=== PATIENT | male | born 1990 | race Caucasian/White ===

== ENCOUNTER 2019-08-17 23:32 | Emergency (ER) | payer SELFPAY ==
[2019-08-17 23:33] VITALS: BP 127/94; PULSE 106; RESP 20; TEMP 36.5; O2SAT 97; BMI 21.8
--- NOTE | 2019-08-18 | RAD_ITS ---
STUDY: X-RAY CHEST REASON FOR EXAM: Male, 29 years old patient with dyspnea and bilateral flank pain just starting today. TECHNIQUE: PA and lateral views of the chest. COMPARISON: Prior comparison studies are not available for review at this time. FINDINGS: The lungs are clear and expanded. There is no demonstrated pleural abnormality. Normal size heart. Normal mediastinum and zak. Normal visualized pulmonary arteries. Normal visualized aortic arch and descending thoracic aorta. There is an increased kyphosis of the thoracic spine. Normal visualized ribs, clavicles, and shoulders. There is no demonstrated abnormality of the visualized soft tissue structures of the upper abdomen. RAD/Chest PA and Lateral IMPRESSION: No radiographic evidence of acute cardiopulmonary disease. Electronically Signed: Olivia Hinojosa MD at 1:06 EDT , Service support ,
[2019-08-18] MEDS: Ketorolac 30 MG/ML Syringe IV (00:04)
[2019-08-18 00:14] LABS: Bacteria 0 SEEN /hpf (None Seen); Mucous, Urine 0 SEEN /hpf (<or=2+); Red Blood Cells-Urine 0 SEEN /hpf (0-5); Squamous Epithelial Cells - UA 0 SEEN /hpf (0-5); White Blood Cells 0 SEEN /hpf (0-5)
[2019-08-18 00:16] LABS: Absolute Lymphocyte Count 2.08 X10^3/uL (0.83-4.51); Absolute Neutrophil Count 5.3 X10^3/uL (2.0-7.7); Basophil# 0.05 X10^3/uL; Basophil% 0.6 % (0-1); Eosinophil# 0.05 X10^3/uL; Eosinophils% 0.6 % (0-5); Hematocrit 39.7 % (40-54); Hemoglobin 13.9 g/dL (13.0-16.5); Lymphocyte # 2.08 X10^3/ul (4.0); Lymphocyte % 25.4 % (19-41); Mean Corpuscular Hgb 31.7 pg (27.0-32.0); Mean Corpuscular Volume 90.6 fL (80-94); Mean Platelet Vol. 9.2 fl (6.2-12.0); Monocyte% 8.6 % (0-10); NRBC Flagged by Analyzer 0 % (0-5); Neutrophil # 5.26 X10^3/uL (2.7-7.7); Neutrophil % 64.3 % (47-70); Platelet Count 215 K/mm3 (150-450); RBC Distribution Width CV 11.8 % (11.6-14.6); RBC Distribution Width SD 39.2 fl (35.1-43.9); Red Blood Count 4.38 M/mm3 (4.6-6.2); White Blood Count 8.2 K/mm3 (4.4-11.0)
[2019-08-18 00:17] LABS: Color, Urine Straw (Yellow); Glucose, Dipstick 1000 mg/dl (Normal); Ketone-Dipstick 50 mg/dl (Negative); Leukocyte Esterase-Dipstick Negative /ul (Negative); Nitrite-Dipstick Negative (Negative); Occult Blood-Urine Negative /ul (Negative); Protein-Dipstick Negative (Negative); Urine Bilirubin Dipstick Negative (Negative); Urine Clarity Clear (Clear); Urine Urobilinogen Normal (Normal); Urine pH 6.5 (5.0 - 8.0)
[2019-08-18 00:42] LABS: Anion Gap 8 (5-15); BUN 13 mg/dL (7-18); BUN/Creat Ratio 18.6 RATIO (10-20); Calcium,Total 8.6 mg/dL (8.5-10.1); Chloride 94 mmol/L (98-107); EST Glomerular Filtration Rate 143 mL/min (>60); Est Glom Filt Rate - Afr Amer 173 mL/min (>60); Estimated Creatinine Clearance 128.22 ml/min; Glucose 638 mg/dL (74-106); Potassium 4.2 mmol/L (3.5-5.1); Sodium Level 128 mmol/L (136-145)
--- NOTE | 2019-08-18 00:52 | ED.DCSUM_ITS ---
- ER Visit Summary Date of Service: 08/18/19 Chief Complaint: Bilateral flank/rib pain History of Present Illness: The patient is a 29 M who has bilateral flank and rib pain. It started about 1/2-hour prior to presentation. He states the pain is sharp. It does not radiate. He denies a recent cough. No dysuria. He has had some diarrhea. He took nothing for this pain at home. Denies any trauma. He is a type I diabetic and states that his blood sugars have been slightly high recently due to a recent cold. Physical Examination: Vital signs reviewed. HEENT exam unremarkable. Heart is regular rate and rhythm without murmurs. Lungs are clear to auscultation. His chest is tender in the bilateral chest wall area in the mid axillary lines. Abdomen is soft and nontender. His back is nontender. No CVA tenderness. Extremities reveal no edema. Skin exam normal. Neurologic exam normal. Test Results: CBC normal. Blood sugar 638, sodium 128, chloride 94. Urinalysis has slight ketones with glucose. No signs of infection. Chest x-ray per my int erpretation is unremarkable Emergency Department Course and Treatment: The patient's work-up is negative except for hyperglycemia. He is feeling better after Toradol. He admits that he had some cake today at a birthday alliance party which may have raised his blood sugar. He has also been sick with a cold recently. This cold could also contribute to the chest wall pain he was having. I instructed him to use ibuprofen for pain at home. I will give him 25 units of insulin here. He states he does have insulin at home that he can take. I am going to give him PCP follow-up. No signs of ketosis and his anion gap is normal. Treatment Plan: [] Disposition: Discharge Impression: Bilateral rib pain, hyperglycemia This note was generated with [employer] dictation software. It may contain incorrect words, spelling, and punctuation that were not noted in review of the chart prior to signing ED Disposition - Plan for ED Patient: Disposition: Home or Assisted Living Instructions: ED Diabetic Hyperglycemia Referrals: Care Physician,No Primary [Primary Care Provider] - Lucio Gomez III, MD [STAFF PHYSICIAN] -
[2019-08-18] MEDS: Insulin Human 75/25 Kwickpen 25 UNIT SC (01:04)
[2019-08-18 01:09] VITALS: BP 116/78; PULSE 100; RESP 16; O2SAT 100
== END 2019-08-18 01:09 | disposition home or self-care (01) ==
PROVIDERS: Emergency Provider Emergency Medicine
DX: R07.81 Pleurodynia (principal); E10.65 Type 1 diabetes mellitus with hyperglycemia; Z79.4 Long term (current) use of insulin; Z72.0 Tobacco use
CPT/HCPCS: 71046; 80048; 81001; 85025; 96374; 99285; A4216

== ENCOUNTER 2019-08-24 06:00 | Emergency (ER) | payer SELFPAY ==
[2019-08-24 06:01] VITALS: BP 129/86; PULSE 111; RESP 18; TEMP 36.7; O2SAT 98; BMI 20.1
[2019-08-24 06:04] VITALS: BP 129/86; PULSE 111; RESP 18; TEMP 36.7; O2SAT 98
--- NOTE | 2019-08-24 06:18 | CT_ITS ---
HISTORY: DIARRHEA- BRIGHT RED BLOOD EXAMINATION: CT Abdomen And Pelvis W/O Contrast Injection TECHNIQUE: Helically acquired images were obtained of the abdomen and pelvis following IV contrast. A radiation dose optimization technique was used for this scan. IV Contrast dosage and agent: None Oral contrast: None. COMPARISON: None FINDINGS: Lower thorax: Clear. No pleural effusion or pericardial effusion. Gastric food contents. Contracted gallbladder. No radiopaque gallstones and no biliary dilatation. Limited non-infusion exam. Mild diffuse hepatic enlargement. The spleen is upper normal in size. Pancreas: Thin body habitus and the pancreas is not well seen. Allowing for this, mild diffuse pancreatic enlargement and mild peripancreatic edema is suggested representing low-grade pancreatitis. No pancreatic ductal dilatation is seen. Both kidneys are normal in position. 2 mm calyceal stone, lower pole of the left kidney. No hydronephrosis or hydroureter. The adrenal glands are not enlarged. Abdominal aorta is normal in caliber. No ascites or retroperitoneal lymph node enlargement identified. GI tract: No obstruction. Normal appendix. No colitis or focal bowel lesion identified in this patient with history of bright red blood per rectum. Moderate stool within the rectum and lower sigmoid. Pelvis: Normal urinary bladder. No bladder stones. No free fluid or lymph node enlargement. Bones: No acute osseous abnormality. CT/Abdomen/Pelvis without Cont IMPRESSION: 1. Generalized mild hepatomegaly. No ascites or splenomegaly. 2. Low-grade pancreatitis is suggested. Recommend biochemical (laboratory) correlation. 3. Left renal tiny nonobstructing stone. 4. Moderate stool within the rectum and lower sigmoid. No colitis or focal bowel lesion identified. Individualized dose optimization techniques were used for this CT. at 0805 Reported and signed by: Amador Henley MD Electronically Signed: Amador Henley, at 8:04 EDT Tel , Service support ,
--- NOTE | 2019-08-24 06:19 | ED.VIS.GEN ---
History of Present Illness Chief Complaint: Diarrhea Informant: Patient Narrative: Stated he has had chronic diarrhea for the last month. Up to 5 episodes of loose watery diarrhea per day. Over the last couple weeks he is noticed some blood in his stools. He states after he eats he usually has to have diarrhea. He has not seen a doctor for this. He is never had problems like this in the past. History of type 1 diabetes. Was seen last week with normal hemoglobin. He has been using herbal supplements to try to remedy this. Current severity is mild to moderate. Denies any significant abdominal pain but feels cramping. No recent antibiotics. No history of C. difficile colitis. Past Medical History - Allergies and Home Meds Allergies/Adverse Reactions: Allergies aspirin Allergy (Verified 08/18/19 00:03) Anaphylaxis cyclobenzaprine [From Flexeril] Allergy (Verified 08/18/19 00:03) Anaphylaxis morphine Allergy (Verified 08/18/19 00:03) Anaphylaxis naproxen Allergy (Verified 08/18/19 00:03) Anaphylaxis Penicillins [PCN] Allergy (Verified 08/18/19 00:03) Anaphylaxis Primary Care Physician: Riccardo De Leon DO [NON CLINICAL AFFILIATE] - Prior records reviewed: Yes Past Medical History: - - Diabetes type 1 Surgical History: - - Viewed Smoking Status: Current every day smoker Alcohol: None Drugs: None Review of Systems General: Denies: Chills, Fever, Sweats Eyes: Denies: Visual changes - bilaterally, Diplopia ENT: Denies: Rhinorrhea, Sore throat Cardiovascular: Denies: Chest pain, Palpitations Respiratory: Denies: Dyspnea, Cough, Dyspnea on exertion Gastrointestinal: Reports: Abdominal pain, Diarrhea, Hematochezia. Denies: Nausea, Vomiting, Melena Genitourinary: Denies: Dysuria, Hematuria, Frequency Musculoskeletal: Denies: Back pain, Extremity Pain Skin: Denies: Rash, Wounds Neurological: Denies: Headache, Weakness, Numbness Physical Exam Vital Signs/Narrative: Vital Signs Temp Pulse Resp BP Pulse Ox 08/24/19 06:04 98.0 F 111 H 18 129/86 H 98 08/24/19 06:01 98.0 F 111 H 18 129/86 H 98 General: Well nourished, Well developed, No Acute Distress Head: Normocephalic, Atraumatic Eyes: Perrl, EOMI ENT: Moist mucous membranes, No rhinorrhea Neck: Supple, Nontender Cardiovascular: Regular rate, Regular rhythm, No murmurs Respiratory: No distress, CTA bilaterally, Chest nontender Abdomen: Soft, Nontender, Nondistended, Normal bowel sounds Back: Nontender, Normal Inspection Extremities: Nontender, No edema Skin: Normal color, No rash Neurological: Alert, Oriented x3, Cranial nerves II-XII grossly intact, Normal Strength, Normal Sensation Psychological: Normal affect, Normal Mood Diagnostic/Tx/Re-eval - Medical Decision Making IV established given IV fluids and Bentyl. Lab work and CT abdomen pelvis obtained. Lab work shows a elevation in glucose greater than 400. No leukocytosis. Hemoglobin normal. CT will be signed out to the a.m. physician for evaluation. If negative patient be discharged to use Imodium at home and follow-up with her family doctor ED Disposition - Plan for ED Patient: Disposition: Psychiatric Hospital or Unit Diagnosis: Chronic diarrhea Instructions: Treating Diarrhea Prescriptions: Ondansetron [Zofran Odt] 4 mg PO Q8H PRN PRN #10 tab PRN Reason: Nausea Prescription Printed Referrals: Riccardo De Leon DO [NON CLINICAL AFFILIATE] -
[2019-08-24] MEDS: 0.9% Normal Saline 1,000 ML 1000 ML IV (06:31)
[2019-08-24] MEDS: Dicyclomine 20 MG/2 ML Vial IM (06:31)
[2019-08-24 06:39] LABS: Absolute Lymphocyte Count 2.13 X10^3/uL (0.83-4.51); Absolute Neutrophil Count 4.7 X10^3/uL (2.0-7.7); Basophil# 0.04 X10^3/uL; Basophil% 0.5 % (0-1); Eosinophil# 0.18 X10^3/uL; Eosinophils% 2.3 % (0-5); Hematocrit 42.7 % (40-54); Hemoglobin 14.7 g/dL (13.0-16.5); Lymphocyte # 2.13 X10^3/ul (4.0); Lymphocyte % 26.9 % (19-41); Mean Corp Hgb Conc 34.4 g/dL (32-36); Mean Corpuscular Hgb 31.8 pg (27.0-32.0); Mean Corpuscular Volume 92.4 fL (80-94); Mean Platelet Vol. 8.9 fl (6.2-12.0); Monocyte# 0.81 X10^3/uL; Monocyte% 10.2 % (0-10); NRBC Flagged by Analyzer 0 % (0-5); Neutrophil # 4.71 X10^3/uL (2.7-7.7); Neutrophil % 59.6 % (47-70); Platelet Count 204 K/mm3 (150-450); RBC Distribution Width SD 40.6 fl (35.1-43.9); Red Blood Count 4.62 M/mm3 (4.6-6.2); White Blood Count 7.9 K/mm3 (4.4-11.0)
[2019-08-24 07:04] LABS: AST(SGOT) 23 U/L (15-37); Alanine Aminotransfer ALT/SGPT 51 U/L (16-61); Albumin, Serum 3.4 g/dL (3.2-5.0); Alkaline Phosphatase 107 U/L (45-117); Anion Gap 12 (5-15); BUN 14 mg/dL (7-18); BUN/Creat Ratio 23.6 RATIO (10-20); Calcium,Total 8.1 mg/dL (8.5-10.1); Chloride 99 mmol/L (98-107); Creatinine, Serum 0.59 mg/dL (0.70-1.30); EST Glomerular Filtration Rate 172 mL/min (>60); Est Glom Filt Rate - Afr Amer 208 mL/min (>60); Estimated Creatinine Clearance 140.53 ml/min; Globulin 3.4 g/dL (2.2-4.2); Glucose 464 mg/dL (74-106); Potassium 3.9 mmol/L (3.5-5.1); Protein, Total 6.8 g/dL (6.4-8.2); Sodium Level 132 mmol/L (136-145)
[2019-08-24 07:34] VITALS: BP 123/82; PULSE 98; RESP 16; TEMP 37.1; O2SAT 98
[2019-08-24 08:56] VITALS: BP 121/87; PULSE 99; RESP 12; TEMP 36.8; O2SAT 98
[2019-08-24 09:02] LABS: Lipase 176 U/L (73-393)
[2019-08-24 09:30] VITALS: BP 121/87; PULSE 99; RESP 12; TEMP 37.2; O2SAT 98
== END 2019-08-24 09:32 | disposition home or self-care (01) ==
PROVIDERS: Emergency Medicine; Emergency Provider Emergency Medicine
DX: K52.9 Noninfective gastroenteritis and colitis, unspecified (principal); E10.9 Type 1 diabetes mellitus without complications; F17.200 Nicotine dependence, unspecified, uncomplicated; Z79.4 Long term (current) use of insulin
CPT/HCPCS: 74176; 80053; 83630; 83690; 85025; 87177; 87209; 87506; 96360; 96361; 96372; 99283; J7030; A4216

== ENCOUNTER 2019-09-26 20:19 | Emergency (ER) | payer SELFPAY ==
[2019-09-26 20:21] VITALS: BP 131/83; PULSE 121; RESP 18; TEMP 36.4; O2SAT 97; BMI 18.3
[2019-09-26 20:36] LABS: Bedside Glucose 492 mg/dL (70-110)
--- NOTE | 2019-09-26 20:42 | ED.DCSUM_ITS ---
History of Present Illness Chief Complaint: Hyperglycemia Informant: Patient Onset: Weeks - 1 Context: - - since ran out of short- and long-acting insulins Timing: Intermittent Quality: occasionally in 400s Current Severity: Moderate Maximum Severity: Moderate Worsened by: n/a Relieved by: n/a Associated Symptoms: bilat flank pain Narrative: Patient is a type I diabetic who recently moved here from [place], [place], which is where his PCP and gis consultant are. He states he recently had parental in the family and so he moved here to be with other family members, and now has a job at a [employer] where he makes [employer]. He lives locally and does not have a local doctor. He called his doctors in [place] for refills of his medications and for the past week has been unsuccessful with multiple phone calls. He states as a result he has been trying to manage his blood sugar by avoiding sweets and carbohydrates. He states he has been feeling dehydrated and trying to drink fluids, choosing diet once preferentially. He does not necessarily feel like he is in DKA but for the last 3 days has had bilateral flank pain and wonders if it is due to dehydration. It is aching mostly, however after drinking a bunch of diet soda he felt it was sharp in nature today and decided to come for evaluation. He denies any thoracic symptoms or dyspnea, rashes, injuries, recent illnesses. He has had no other recent travel out of the area. No known exposures with coronavirus-infected persons. - Past Medical History (1) Type 1 diabetes mellitus Status: Chronic Past Medical History - Allergies and Home Meds Allergies/Adverse Reactions: Allergies aspirin Allergy (Verified 09/26/19 20:20) Anaphylaxis cyclobenzaprine [From Flexeril] Allergy (Verified 09/26/19 20:20) Anaphylaxis morphine Allergy (Verified 09/26/19 20:20) Anaphylaxis naproxen Allergy (Verified 09/26/19 20:20) Anaphylaxis Penicillins [PCN] Allergy (Verified 09/26/19 20:20) Anaphylaxis Primary Care Physician: Care Physician,No Primary [NON-STAFF] - Doctors: None locally Surgical History: - - Bilateral lower extremity orthopedic, remote Lives: With Family Smoking Status: Current every day smoker Review of Systems General: Reports: Malaise. Denies: Chills, Fever, Sweats Eyes: Denies: Visual changes - bilaterally, Diplopia ENT: Denies: Bilateral ear pain, Rhinorrhea, Sore throat Cardiovascular: Denies: Chest pain, Palpitations Respiratory: Denies: Dyspnea, Cough, Dyspnea on exertion Gastrointestinal: Reports: Abdominal pain - Bilateral lateral flank, Nausea - Off-and-on, currently not present. Denies: Vomiting, Diarrhea, Melena, Hematochezia Genitourinary: Denies: Dysuria, Hematuria, Frequency Musculoskeletal: Denies: Neck pain, Back pain, Swelling, Extremity Pain Skin: Denies: Rash, Wounds Neurological: Denies: Headache, Weakness, Numbness Physical Exam Vital Signs/Narrative: Vital Signs Temp Pulse Resp BP Pulse Ox 09/26/19 20:21 97.6 F L 121 H 18 131/83 H 97 Inital Vital Signs reviewed: Yes General: Well nourished, Well developed, No Acute Distress - Well-appearing, - - Very thin body habitus. Head: Normocephalic, Atraumatic Eyes: Perrl, EOMI ENT: Moist mucous membranes, No rhinorrhea, - - Posterior oropharynx clear. Very poor dentition with significant decay.. Negative for: Nasal congestion Neck: Supple, Nontender, No lymphadenopathy Cardiovascular: Regular rate, Regular rhythm, No murmurs, Tachycardia Respiratory: No distress, CTA bilaterally, Chest nontender Abdomen: Soft, Nondistended, Normal bowel sounds, No masses, Tender - Lateral flanks mildly, bilaterally. Otherwise nontender throughout anterior abdomen/pelvis.. Negative for: Guarding, Rebound tenderness Back: Nontender, Normal Inspection. Negative for: CVA tenderness Extremities: Nontender, No edema. Negative for: Calf Tenderness Skin: Normal color, No rash, No Trauma Neurological: Alert, Oriented x3, Cranial nerves II-XII grossly intact, Normal Strength, Normal Sensation, Normal Gait Psychological: Normal affect, Normal Mood Diagnostic/Tx/Re-eval Laboratory Results 09/26/19 09/26/19 09/26/19 20:31 20:40 20:40 WBC 9.4 RBC 4.97 Hgb 15.5 Hct 44.3 MCV 89.1 MCH 31.2 MCHC 35.0 RDW Std Deviation 38.6 RDW Coeff of Haris 11.9 Plt Count 261 MPV 8.9 Immature Gran % (Auto) 0.400 Neut % (Auto) 65.7 Lymph % (Auto) 24.8 Morton % (Auto) 7.5 Eos % (Auto) 1.0 Baso % (Auto) 0.6 Absolute Neuts (auto) 6.2 Absolute Lymphs (auto) 2.33 Nucleated RBC % 0 Sodium 130 L Potassium 3.9 Chloride 97 L Carbon Dioxide 23.0 Anion Gap 10 BUN 10 Creatinine 0.62 L Estim Creat Clear Calc 133.23 Est GFR (MDRD) Af Amer 197 Est GFR (MDRD) Non-Af 163 BUN/Creatinine Ratio 16.0 Glucose 533 H* Calcium 9.7 Total Bilirubin 0.80 AST 13 L ALT 35 Alkaline Phosphatase 73 Total Protein 7.1 Albumin 3.5 Globulin 3.6 Albumin/Globulin Ratio 1.0 Urine Color Urine Clarity Urine pH Ur Specific [place] Urine Protein Urine Glucose (UA) Urine Ketones Urine Occult Blood Urine Nitrite Urine Bilirubin Urine Urobilinogen Ur Leukocyte Esterase Urine RBC Urine WBC Ur Squamous Epith Cells Urine Bacteria Urine Mucus Acetone Level POC Glucose 492 H* 09/26/19 09/26/19 20:40 20:45 WBC RBC Hgb Hct MCV MCH MCHC RDW Std Deviation RDW Coeff of Haris Plt Count MPV Immature Gran % (Auto) Neut % (Auto) Lymph % (Auto) Morton % (Auto) Eos % (Auto) Baso % (Auto) Absolute Neuts (auto) Absolute Lymphs (auto) Nucleated RBC % Sodium Potassium Chloride Carbon Dioxide Anion Gap BUN Creatinine Estim Creat Clear Calc Est GFR (MDRD) Af Amer Est GFR (MDRD) Non-Af BUN/Creatinine Ratio Glucose Calcium Total Bilirubin AST ALT Alkaline Phosphatase Total Protein Albumin Globulin Albumin/Globulin Ratio Urine Color Yellow Urine Clarity Clear Urine pH 6.0 Ur Specific [place] 1.015 Urine Protein Negative Urine Glucose (UA) 1000 H Urine Ketones 150 H Urine Occult Blood Negative Urine Nitrite Negative Urine Bilirubin Negative Urine Urobilinogen Normal Ur Leukocyte Esterase Negative Urine RBC 0 SEEN Urine WBC 0 SEEN Ur Squamous Epith Cells 0-5 SEEN Urine Bacteria 0 SEEN Urine Mucus 0 SEEN Acetone Level MODERATE H POC Glucose - Medical Decision Making Patient's work-up shows hyperglycemia and no signs of any infection, kidney injury, or other electrolyte disturbance/acute abnormality. He does have positive ketones but his anion gap is closed and is not in DKA. He is feeling a little better after fluids and insulin only. We gave him 12 units of Humalog, and on the chemistries his sugar went up by about 100 points and it was found that he was eating carbs in the room while we were trying to get his blood sugar down, so I increased his Humalog by another factor given the patient sliding scale. Once we get his sugar a little bit under control he will be discharged with refill prescriptions and referrals to local doctors including endocrinology. He is comfortable with that plan. ED Disposition - Plan for ED Patient: Disposition: Home or Assisted Living Diagnosis: Hyperglycemia due to type 1 diabetes mellitus, Medication refill Instructions: ED Diabetic Hyperglycemia Prescriptions: Insulin Lispro [Humalog KwikPen] 22 unit SQ ACHS 30 Days Prescription Printed Insulin Glargine,Hum.rec.anlog [Lantus] 44 unit SQ QHS 30 Days Prescription Printed Referrals: Vasyl Griffin MD [STAFF PHYSICIAN] - Olman Brewster MD [STAFF PHYSICIAN] - (ENDOCRINOLOGY --call for appointment)
[2019-09-26] MEDS: 0.9% Normal Saline 1,000 ML 1000 ML IV (20:46)
[2019-09-26 20:52] LABS: Bacteria 0 SEEN /hpf (None Seen); Mucous, Urine 0 SEEN /hpf (<or=2+); Red Blood Cells-Urine 0 SEEN /hpf (0-5); White Blood Cells 0 SEEN /hpf (0-5)
[2019-09-26 21:01] LABS: Absolute Lymphocyte Count 2.33 X10^3/uL (0.83-4.51); Absolute Neutrophil Count 6.2 X10^3/uL (2.0-7.7); Basophil# 0.06 X10^3/uL; Basophil% 0.6 % (0-1); Eosinophil# 0.09 X10^3/uL; Hematocrit 44.3 % (40-54); Hemoglobin 15.5 g/dL (13.0-16.5); Lymphocyte # 2.33 X10^3/ul (4.0); Lymphocyte % 24.8 % (19-41); Mean Corpuscular Hgb 31.2 pg (27.0-32.0); Mean Corpuscular Volume 89.1 fL (80-94); Mean Platelet Vol. 8.9 fl (6.2-12.0); Monocyte% 7.5 % (0-10); NRBC Flagged by Analyzer 0 % (0-5); Neutrophil # 6.16 X10^3/uL (2.7-7.7); Neutrophil % 65.7 % (47-70); Platelet Count 261 K/mm3 (150-450); RBC Distribution Width CV 11.9 % (11.6-14.6); RBC Distribution Width SD 38.6 fl (35.1-43.9); Red Blood Count 4.97 M/mm3 (4.6-6.2); White Blood Count 9.4 K/mm3 (4.4-11.0)
[2019-09-26 21:08] LABS: Color, Urine Yellow (Yellow); Glucose, Dipstick 1000 mg/dl (Normal); Leukocyte Esterase-Dipstick Negative /ul (Negative); Nitrite-Dipstick Negative (Negative); Occult Blood-Urine Negative /ul (Negative); Protein-Dipstick Negative (Negative); Specific Gravity, Urine 1.015 (1.002-1.030); Urine Bilirubin Dipstick Negative (Negative); Urine Clarity Clear (Clear); Urine Urobilinogen Normal (Normal)
[2019-09-26 21:09] LABS: AST(SGOT) 13 U/L (15-37); Alanine Aminotransfer ALT/SGPT 35 U/L (16-61); Albumin, Serum 3.5 g/dL (3.2-5.0); Alkaline Phosphatase 73 U/L (45-117); Anion Gap 10 (5-15); BUN 10 mg/dL (7-18); Calcium,Total 9.7 mg/dL (8.5-10.1); Chloride 97 mmol/L (98-107); Creatinine, Serum 0.62 mg/dL (0.70-1.30); EST Glomerular Filtration Rate 163 mL/min (>60); Est Glom Filt Rate - Afr Amer 197 mL/min (>60); Estimated Creatinine Clearance 133.23 ml/min; Globulin 3.6 g/dL (2.2-4.2); Potassium 3.9 mmol/L (3.5-5.1); Protein, Total 7.1 g/dL (6.4-8.2); Sodium Level 130 mmol/L (136-145)
[2019-09-26 21:13] LABS: Glucose 533 mg/dL (74-106)
--- NOTE | 2019-09-26 21:13 | ED.RN ---
GLUCOSE OF [address] RAE. VERBALIZES UNDERSTANDING
[2019-09-26 21:18] LABS: Ketone-Dipstick 150 mg/dl (Negative)
[2019-09-26 21:20] LABS: Squamous Epithelial Cells - UA 0-5 SEEN /hpf (0-5)
[2019-09-26] MEDS: Insulin Lispro 100 UNIT/ML INSULN.PEN 12 UNIT SC (21:21)
[2019-09-26 21:50] LABS: Bedside Glucose 454 mg/dL (70-110)
[2019-09-26] MEDS: Insulin Lispro 100 UNIT/ML INSULN.PEN 15 UNIT SC (22:05)
[2019-09-26 22:35] VITALS: BP 108/75; PULSE 106; RESP 17; O2SAT 98
[2019-09-26 22:46] LABS: Bedside Glucose 369 mg/dL (70-110)
== END 2019-09-26 22:41 | disposition home or self-care (01) ==
PROVIDERS: Emergency Provider Emergency Medicine
DX: E10.65 Type 1 diabetes mellitus with hyperglycemia (principal); F17.200 Nicotine dependence, unspecified, uncomplicated; Z76.0 Encounter for issue of repeat prescription; Z79.4 Long term (current) use of insulin
CPT/HCPCS: 80053; 81001; 82009; 82962; 85025; 96360; 99284; J7030

== ENCOUNTER 2019-10-12 08:41 | Emergency (ER) | payer SELFPAY ==
[2019-10-12 08:43] VITALS: BP 130/98; PULSE 89; RESP 17; TEMP 37; O2SAT 100; BMI 19.8
--- NOTE | 2019-10-12 09:07 | RAD_ITS ---
STUDY: X-RAY - RIGHT KNEE REASON FOR EXAM: Male, 29 years old. Fall down steps, pain below and around patella TECHNIQUE: 4 view(s) of the knee. COMPARISON: None. FINDINGS: Normal visualized distal femur. 2 metallic screws are seen in the proximal tibia from prior surgery. Normal proximal tibiofibular articulation. Normal medial femorotibial compartment. Normal lateral femorotibial compartment. Normal patellofemoral articulation. The soft tissue structures are unremarkable. RAD/Knee 4 or More Views IMPRESSION: Postsurgical changes. No acute abnormality is seen. Electronically Signed: Antonio Smith, at 9:33 EDT , Service support ,
--- NOTE | 2019-10-12 09:12 | ED.VISSUMM ---
- ER Visit Summary Date of Service: 10/12/19 Chief Complaint: Right knee pain History of Present Illness: The patient is a 29 M who reports that yesterday he missed a step and fell injuring his right knee. He denies any neck or back pain. No loss of consciousness. Patient reports he has a sharp, throbbing pain is 10 on 10 when he walks and on 10 at rest. He is taken ibuprofen without relief. He denies any numbness or weakness distally. Physical Examination: Vitals: Stable. Afebrile. Neck: No vertebral tenderness. Full ROM without difficulty. Cleared by NEXUS criteria. Back: No vertebral tenderness. General: A&O x 3. NAD. Cardiovascular exam: Regular rate and rhythm, no murmur, rub or gallop. Respiratory exam: Chest nontender. No crepitus. Clear to auscultation bilaterally. No wheezes or stridor. Abdominal exam: Soft, nontender, nondistended, normal bowel sounds. No pain in RUQ or LUQ specifically. No peritoneal signs. Extremity: Moderate diffuse tenderness palpation over his entire right knee. No joint effusion. He has pain, but no ligamentous instability with anterior/posterior drawer or medial/lateral stress. Good range of motion with minimal pain. No overlying erythema or warmth. He is neuro vas intact distal to this. Test Results: Knee x-ray shows no fracture or dislocation. Hardware is intact. Emergency Department Course and Treatment: Patient was treated with Tylenol. He was placed in an Filiberto wrap. He refused crutches. Treatment Plan: Patient will be discharged with symptomatic care. Ice, elevate, use Tylenol and/or ibuprofen for pain. Follow-up with Dr. Onur Hinojosa in 1 week if not improving. Return to the emergency department for any worsening symptoms. Disposition: To home in improved and stable condition. Impression: 1. Right knee pain, acute. This note was generated with [employer] dictation software. It may contain incorrect words, spelling, and punctuation that were not noted in review of the chart prior to signing ED Disposition - Plan for ED Patient: Instructions: ED Knee Pain [facility] Referrals: Onur Hinojosa MD [STAFF PHYSICIAN] - 1 Week if not improving
[2019-10-12] MEDS: Acetaminophen 500 MG Tablet 1000 MG PO (09:24)
== END 2019-10-12 09:45 | disposition home or self-care (01) ==
LOC: ED 09:44
PROVIDERS: Emergency Provider Emergency Medicine; PCP Internal Medicine
DX: M25.561 Pain in right knee (principal); E10.9 Type 1 diabetes mellitus without complications; Z79.4 Long term (current) use of insulin; Z72.0 Tobacco use
CPT/HCPCS: 73564; 99283

== ENCOUNTER 2019-11-09 20:28 | Emergency (ER) | payer SELFPAY ==
[2019-11-09 20:30] VITALS: BP 120/72; PULSE 94; RESP 15; TEMP 36; O2SAT 100
[2019-11-09 22:22] VITALS: BP 115/61; PULSE 70; RESP 18; O2SAT 98
--- NOTE | 2019-11-09 22:22 | ED.DCSUM_ITS ---
History of Present Illness Chief Complaint: Back Informant: Patient Narrative: Patient presents the emergency department for the evaluation of low back pain. Symptoms began about 2 days ago when he went to pick something up off the floor and felt a tight pulling sensation in his low back. Since then he intermittently has pain that shoots down both legs. Denies any bowel or bladder dysfunction. He states this is not the first time that this is happened. States that he recently moved from [place] and while in [place] he had seen a chiropractor. He states that he has not really been engaging much physical activity recently due to the pandemic. No prior back surgeries. No fevers or chills. Denies any IV drug use. Past Medical History - Allergies and Home Meds Allergies/Adverse Reactions: Allergies aspirin Allergy (Verified 11/09/19 20:29) Anaphylaxis cyclobenzaprine [From Flexeril] Allergy (Verified 11/09/19 20:29) Anaphylaxis morphine Allergy (Verified 11/09/19 20:29) Anaphylaxis naproxen Allergy (Verified 11/09/19 20:29) Anaphylaxis Penicillins [PCN] Allergy (Verified 11/09/19 20:29) Anaphylaxis Primary Care Physician: Kamila Emanuel MD [Primary Care Provider] - Surgical History: - - Bilateral lower extremity orthopedic, remote Smoking Status: Current some day smoker Review of Systems General: Denies: Chills, Fever, Sweats Eyes: Denies: Visual changes - bilaterally, Diplopia ENT: Denies: Rhinorrhea, Sore throat Cardiovascular: Denies: Chest pain, Palpitations Respiratory: Denies: Dyspnea, Cough, Dyspnea on exertion Gastrointestinal: Denies: Abdominal pain, Nausea, Vomiting, Diarrhea, Melena, Hematochezia Genitourinary: Denies: Dysuria, Hematuria, Frequency Musculoskeletal: Reports: Back pain. Denies: Extremity Pain Skin: Denies: Rash, Wounds Neurological: Denies: Headache, Weakness, Parasthesia, Numbness Physical Exam Vital Signs/Narrative: Vital Signs Temp Pulse Resp BP Pulse Ox 11/09/19 20:30 96.8 F L 94 15 120/72 100 Inital Vital Signs reviewed: Yes General: Well nourished, Well developed, No Acute Distress Head: Normocephalic, Atraumatic Eyes: Perrl, EOMI ENT: Moist mucous membranes, No rhinorrhea Neck: Supple, Nontender Cardiovascular: Regular rate, Regular rhythm, No murmurs Respiratory: No distress, CTA bilaterally, Chest nontender Abdomen: Soft, Nontender, Nondistended, Normal bowel sounds Back: - - Patient complains of tenderness to palpation in the paraspinal musculatures of the lumbar spine. Right greater than left. There are no tissue texture changes to suggest abscess. She has slow painful range of motion but is able to perform basic motions. Extremities: Nontender, No edema Skin: Normal color, No rash Neurological: Alert, Oriented x3, Cranial nerves II-XII grossly intact, Normal Strength, Normal Sensation Psychological: Normal affect, Normal Mood Diagnostic/Tx/Re-eval - Medical Decision Making Patient be treated with Valium and anti-inflammatories. He is to follow-up with his new doctor which is scheduled on the . He was advised to do gentle stretching his return if worsening or concerns ED Disposition - Plan for ED Patient: Disposition: Home or Assisted Living Diagnosis: Spasm of lumbar paraspinous muscle Instructions: ED Spasm Back No Trauma Prescriptions: Ibuprofen [Motrin] 800 mg PO TID PRN PRN #20 tab PRN Reason: Pain Or Fever Transmission Status: Pending to [facility] #30 Diazepam [Valium] 5 mg PO Q8 PRN #10 tablet PRN Reason: Muscle Spasm Transmission Status: Sent to [facility] #30 Referrals: Kamila Emanuel MD [Primary Care Provider] - Keep Jane appointment Additional Instructions: [facility]
[2019-11-09] MEDS: Ibuprofen 400 MG Tablet 800 MG PO (22:25)
[2019-11-09] MEDS: diazePAM 5 MG Tablet PO (22:26)
== END 2019-11-09 22:32 | disposition home or self-care (01) ==
PROVIDERS: Emergency Provider Emergency Medicine; PCP Internal Medicine
DX: M62.830 Muscle spasm of back (principal); F17.200 Nicotine dependence, unspecified, uncomplicated
CPT/HCPCS: 99283

== ENCOUNTER 2019-11-21 23:41 | Emergency (ER) | payer SELFPAY ==
[2019-11-21 23:42] VITALS: BP 110/90; PULSE 91; RESP 22; TEMP 37.4; O2SAT 99; BMI 20.5
--- NOTE | 2019-11-21 23:54 | EKG12_ITS ---
Test Reason : CP Blood Pressure : / mmHG Vent. Rate : 092 BPM Atrial Rate : 092 BPM P-R Int : 182 ms QRS Dur : 072 ms QT Int : 314 ms P-R-T Axes : 265 084 051 degrees QTc Int : 388 ms Unusual P axis, possible ectopic atrial rhythm Abnormal ECG Confirmed by DONTAE GREENBERG, SUMMER ([id number]), sound editor TRISH WAGGONER ([id number]) on 11/25/2019 11:16:50 AM Referred By: DC Confirmed By:SUMMER DIGGS MD
--- NOTE | 2019-11-22 | RAD_ITS ---
STUDY: X-RAY CHEST REASON FOR EXAM: Male, 29 years old. rt sided chest pain TECHNIQUE: Single frontal view of the chest. COMPARISON: None. FINDINGS: The lungs are clear and expanded. There is no demonstrated pleural abnormality. Normal size heart. Normal mediastinum and zak. Normal visualized pulmonary arteries. Normal visualized aortic arch and descending thoracic aorta. Normal visualized thoracic spine. Normal visualized ribs, clavicles, and shoulders. There is no demonstrated abnormality of the visualized soft tissue structures of the upper abdomen. RAD/Chest 1 View (Portable) IMPRESSION: Normal x-ray examination of the chest. Electronically Signed: Shirin Valdovinos, at 0:36 EDT Tel , Service support ,
[2019-11-22 00:06] LABS: Absolute Lymphocyte Count 2.09 X10^3/uL (0.83-4.51); Absolute Neutrophil Count 4.3 X10^3/uL (2.0-7.7); Basophil# 0.05 X10^3/uL; Basophil% 0.7 % (0-1); Eosinophil# 0.35 X10^3/uL; Eosinophils% 4.7 % (0-5); Hematocrit 39.9 % (40-54); Hemoglobin 13.4 g/dL (13.0-16.5); Lymphocyte # 2.09 X10^3/ul (4.0); Mean Corp Hgb Conc 33.6 g/dL (32-36); Mean Corpuscular Hgb 30.9 pg (27.0-32.0); Mean Corpuscular Volume 91.9 fL (80-94); Mean Platelet Vol. 9.3 fl (6.2-12.0); Monocyte# 0.65 X10^3/uL; Monocyte% 8.7 % (0-10); NRBC Flagged by Analyzer 0 % (0-5); Neutrophil # 4.29 X10^3/uL (2.7-7.7); Neutrophil % 57.5 % (47-70); Platelet Count 237 K/mm3 (150-450); RBC Distribution Width CV 11.5 % (11.6-14.6); RBC Distribution Width SD 39.1 fl (35.1-43.9); Red Blood Count 4.34 M/mm3 (4.6-6.2); White Blood Count 7.5 K/mm3 (4.4-11.0)
--- NOTE | 2019-11-22 00:10 | ED.VISSUMM ---
- ER Visit Summary Date of Service: 11/22/19 Chief Complaint: Dizziness History of Present Illness: The patient is a 29 M who was at work this evening. Around 10:30 PM, he was feeling dizzy. He describes this as a lightheadedness. He checked his blood sugar and it was 500. He was also having some right side chest pain and shortness of breath. She denies fever or cough. Denies any history of heart disease, aortic disease, or blood clots. And he is compliant with his insulin regimen. He takes Humalog 3 times a day and Lantus 44 units in the evening. He said his sugars this evening was 119. He had DKA in the past, but this does not feel like his DKA. Physical Examination: Afebrile and vital signs unremarkable except for respiratory rate of 22. Patient appears uncomfortable but not toxic or in distress. Heart regular. Lungs clear. Abdomen soft. Extremities nontender with no edema. Test Results: EKG showed an ectopic atrial rhythm at a rate of 92. No signs of ischemia or infarction pattern. Laboratory studies, ketones, chest x-ray pending. Emergency Department Course and Treatment: Patient treated with IV fluids, Zofran, fentanyl while awaiting results. CBC normal. Sodium 131 and glucose 677. Troponin normal. Ketones negative. Chest x-ray normal. Patient treated with IV fluids and Humalog. Repeat sugar was 266. Patient was feeling better. Will use [id number] remedies for pain. No indication for admission or further diagnostic testing. Patient will monitor his sugars closely and resume his insulin at home. Treatment Plan: As above Disposition: Discharge Impression: Hyperglycemia, atypical chest pain This note was generated with [employer] dictation software. It may contain incorrect words, spelling, and punctuation that were not noted in review of the chart prior to signing ED Disposition - Plan for ED Patient: Referrals: Kamila Emanuel MD [STAFF PHYSICIAN] -
[2019-11-22] MEDS: 0.9% Normal Saline 1,000 ML 1000 ML IV (00:13)
[2019-11-22] MEDS: Ondansetron 4 MG/2 ML Vial IV (00:13)
[2019-11-22] MEDS: fentaNYL 100 MCG/2 ML Ampul 50 MCG IV (00:13)
[2019-11-22 00:27] LABS: Anion Gap 7 (5-15); BUN 16 mg/dL (7-18); Calcium,Total 9.2 mg/dL (8.5-10.1); Chloride 95 mmol/L (98-107); Creatinine, Serum 1.07 mg/dL (0.70-1.30); EST Glomerular Filtration Rate 87 mL/min (>60); Est Glom Filt Rate - Afr Amer 105 mL/min (>60); Estimated Creatinine Clearance 86.65 ml/min; Glucose 677 mg/dL (74-106); Potassium 4.1 mmol/L (3.5-5.1); Sodium Level 131 mmol/L (136-145)
[2019-11-22] MEDS: Insulin Lispro 100 UNIT/ML INSULN.PEN 12 UNIT SC (00:46)
[2019-11-22 01:50] LABS: Bedside Glucose 266 mg/dL (70-110)
[2019-11-22 02:22] VITALS: PULSE 95; RESP 18; O2SAT 95
--- NOTE | 2019-11-22 02:24 | ED.DEP ---
ED Disposition - Plan for ED Patient: Instructions: Hyperglycemia (High Blood Sugar) Referrals: Kamila Emanuel MD [STAFF PHYSICIAN] -
== END 2019-11-22 02:30 | disposition home or self-care (01) ==
PROVIDERS: Emergency Provider Emergency Medicine; PCP Internal Medicine
DX: E10.65 Type 1 diabetes mellitus with hyperglycemia (principal); Z79.4 Long term (current) use of insulin; R07.89 Other chest pain; Z72.0 Tobacco use
CPT/HCPCS: 71045; 80048; 82009; 82962; 84484; 85025; 93005; 96361; 96374; 96375; 99285; A4216; J2405

== ENCOUNTER 2019-12-07 22:52 | Emergency (ER) | payer SELFPAY ==
[2019-11-30 15:18] VITALS: BMI 20.5
[2019-12-07 22:53] VITALS: BP 105/65; PULSE 100; RESP 18; TEMP 36.4; O2SAT 96; BMI 22.8
--- NOTE | 2019-12-07 23:07 | ED.VIS.GEN ---
History of Present Illness Chief Complaint: Fall Informant: Patient Narrative: Stated that he was walking down into his living room and tripped on his cat on the steps. He slipped on the last 8 steps. He struck the middle of his thoracic spine on the one-step. He also struck the back of his head. He is having no real pain to his head. His neck is normal. No other injuries. Happened 2 hours ago. No home treatment. Current severity is mild. Worse by movement of his back. No loss conscious. No LOC nausea or vomiting. No blood thinners. - Past Medical History (1) Dermatitis Status: Chronic (2) Diabetic neuropathy Status: Chronic (3) Type 1 diabetes mellitus Status: Chronic Past Medical History - Allergies and Home Meds Allergies/Adverse Reactions: Allergies aspirin Allergy (Verified 12/07/19 22:55) Anaphylaxis cyclobenzaprine [From Flexeril] Allergy (Verified 12/07/19 22:55) Anaphylaxis morphine Allergy (Verified 12/07/19 22:55) Anaphylaxis naproxen Allergy (Verified 12/07/19 22:55) Anaphylaxis Penicillins [PCN] Allergy (Verified 12/07/19 22:55) Anaphylaxis Primary Care Physician: Qutea Woodson MD [Primary Care Provider] - Prior records reviewed: Yes Past Medical History: - - See problem list Surgical History: noncontributory, - Smoking Status: Current every day smoker Alcohol: None Drugs: None Review of Systems General: Denies: Chills, Fever, Sweats Eyes: Denies: Visual changes - bilaterally, Diplopia ENT: Denies: Rhinorrhea, Sore throat Cardiovascular: Denies: Chest pain, Palpitations Respiratory: Denies: Dyspnea, Cough, Dyspnea on exertion Gastrointestinal: Denies: Abdominal pain, Nausea, Vomiting, Diarrhea, Melena, Hematochezia Genitourinary: Denies: Dysuria, Hematuria, Frequency Musculoskeletal: Reports: Back pain. Denies: Neck pain, Extremity Pain Skin: Denies: Rash, Wounds Neurological: Denies: Headache, Weakness, Numbness Physical Exam Vital Signs/Narrative: Vital Signs Temp Pulse Resp BP Pulse Ox 12/07/19 22:53 97.6 F L 100 18 105/65 96 General: Well nourished, Well developed, No Acute Distress Head: Normocephalic, Atraumatic. Negative for: Trauma, Tenderness Eyes: Perrl, EOMI ENT: Moist mucous membranes, No rhinorrhea Neck: Supple, Nontender Cardiovascular: Regular rate, Regular rhythm, No murmurs Respiratory: No distress, CTA bilaterally, Chest nontender Abdomen: Soft, Nontender, Nondistended, Normal bowel sounds Back: Normal Inspection, Spinal tenderness - Mild midline thoracic spine tenderness without bony step-off deformity or contusion. Negative for: Nontender Extremities: Nontender, No edema Skin: Normal color, No rash Neurological: Alert, Oriented x3, Cranial nerves II-XII grossly intact, Normal Strength, Normal Sensation Psychological: Normal affect, Normal Mood Diagnostic/Tx/Re-eval - Medical Decision Making Given a shot of Toradol. X-ray of the thoracic spine obtained. X-ray shows a age-indeterminate 10% compression fracture of T9. I suspect this is acute. Patient will take anti-inflammatories and follow-up with orthopedics ED Disposition - Plan for ED Patient: Disposition: Home or Assisted Living Diagnosis: Thoracic compression fracture Instructions: ED Fx Comp Vertebral Referrals: Maryuri Moya DO [STAFF PHYSICIAN] -
[2019-12-07] MEDS: Ketorolac 30 MG/ML Syringe IM (23:18)
--- NOTE | 2019-12-07 23:24 | RAD_ITS ---
STUDY: X-RAY - THORACIC SPINE REASON FOR EXAM: Male, 29 years old. Note down 8 steps. Pain in the mid back. TECHNIQUE: 3 view(s) of the thoracic spine were obtained. COMPARISON: None. FINDINGS: Normal kyphosis of the thoracic spine. There is no substantial scoliosis. There is slight anterior wedging of T9 with approximate 10% loss of vertebral axial height. The remainder of the vertebral axial heights are maintained. Normal disc space heights. The soft tissue structures are unremarkable. RAD/Thoracic Spine 3 Views IMPRESSION: Age indeterminate compression deformity of T9. This is thought acute in light of the patient''s history. Electronically Signed: Ceferino Cheung DO at 23:42 EDT Tel [phone], Service support ,
[2019-12-08 00:03] VITALS: RESP 16
== END 2019-12-08 00:04 | disposition home or self-care (01) ==
PROVIDERS: Emergency Provider Emergency Medicine; PCP Internal Medicine
DX: S22.079A Unspecified fracture of T9-T10 vertebra, initial encounter for closed fracture (principal); W10.8XXA Fall (on) (from) other stairs and steps, initial encounter; Y93.01 Activity, walking, marching and hiking; Y92.008 Other place in unspecified non-institutional (private) residence as the place of occurrence of the external cause; E10.40 Type 1 diabetes mellitus with diabetic neuropathy, unspecified; F17.200 Nicotine dependence, unspecified, uncomplicated; Z79.4 Long term (current) use of insulin
CPT/HCPCS: 72072; 96372; 99282

== ENCOUNTER 2019-12-12 22:54 | Emergency (ER) | payer SELFPAY ==
[2019-12-12 22:55] VITALS: BP 125/95; PULSE 62; RESP 15; TEMP 36.3; O2SAT 98; BMI 19.1
--- NOTE | 2019-12-12 23:05 | ED.VIS.GEN ---
History of Present Illness Chief Complaint: Back Informant: Patient Onset: Days Context: Gradual Onset Timing: Waxes and wanes Current Severity: Moderate Maximum Severity: Moderate Narrative: Patient presents with continued back pain. Patient was seen on December 06 after falling down 8 steps. He has an age-indeterminate 10% compression fracture of T9 with focal tenderness to this area. Patient has been taking 800 mg ibuprofen regularly. He states he gets intermittent sharp pains and the ibuprofen is not controlling it. He denies pain down his legs or arms. He denies paresthesias. There is been no new injury to his back. - Past Medical History (1) Bipolar disorder Status: Chronic (2) Hypertension Status: Chronic (3) Diabetic neuropathy Status: Chronic (4) Type 1 diabetes mellitus Status: Chronic Past Medical History - Allergies and Home Meds Allergies/Adverse Reactions: Allergies aspirin Allergy (Verified 12/12/19 22:59) Anaphylaxis cyclobenzaprine [From Flexeril] Allergy (Verified 12/12/19 22:59) Anaphylaxis morphine Allergy (Verified 12/12/19 22:59) Anaphylaxis naproxen Allergy (Verified 12/12/19 22:59) Anaphylaxis Penicillins [PCN] Allergy (Verified 12/12/19 22:59) Anaphylaxis Primary Care Physician: Queta Woodson MD [Primary Care Provider] - Prior records reviewed: Yes Surgical History: noncontributory, - Smoking Status: Current every day smoker Review of Systems General: Denies: Chills, Fever Eyes: Denies: Visual changes - bilaterally ENT: Denies: Bilateral ear pain Cardiovascular: Denies: Chest pain Respiratory: Denies: Dyspnea, Cough Gastrointestinal: Denies: Abdominal pain, Nausea, Vomiting, Diarrhea Genitourinary: Denies: Dysuria Musculoskeletal: Reports: Back pain. Denies: Swelling, Extremity Pain Skin: Denies: Rash Neurological: Denies: Headache, Weakness, Parasthesia Hematologic: Denies: Easy bruising, Easy bleeding Allergy: Denies: Uticaria Physical Exam Vital Signs/Narrative: Vital Signs Temp Pulse Resp BP Pulse Ox 12/12/19 22:55 97.4 F L 62 15 125/95 H 98 Inital Vital Signs reviewed: Yes General: Well nourished, Well developed Head: Normocephalic ENT: Moist mucous membranes Neck: Supple Cardiovascular: Regular rate, Regular rhythm Respiratory: No distress, CTA bilaterally Abdomen: Soft, Nontender Back: - - Reproducible midline tenderness of the lower thoracic spine. No step-offs noted. No erythema, ecchymosis, or abrasions. Extremities: Nontender Skin: Normal color Neurological: Alert, Oriented x3, Normal Strength, Normal Sensation Psychological: Normal affect Diagnostic/Tx/Re-eval - Medical Decision Making Patient's work-up and x-rays from the first were reviewed. There is been no new injury and I do not feel repeat imaging is necessary. He will continue his ibuprofen but will be given [place] for breakthrough pain. I did do an oars report and the patient has had no narcotics in the last year. He has an appointment to follow-up with Dr. Moya in 2 weeks. ED Disposition - Plan for ED Patient: Disposition: Home or Assisted Living Diagnosis: Back pain Instructions: ED Neck Back Pain General Prescriptions: Hydrocodone Bitart/Apap 5-325 [[place] 5MG-325MG] 1 tab PO Q6H PRN PRN 3 Days #10 tab PRN Reason: Pain Transmission Status: Sent to [facility] #30 Referrals: Queta Woodson MD [Primary Care Provider] - Maryrui Moya DO [STAFF PHYSICIAN] - Keep Jane appointment
[2019-12-12] MEDS: HYDROcodone Bitartrate/Apap 5/325 Tablet PO (23:27)
[2019-12-12 23:30] VITALS: RESP 15
== END 2019-12-12 23:30 | disposition home or self-care (01) ==
LOC: ED 23:16
PROVIDERS: Emergency Provider Emergency Medicine; PCP Internal Medicine
DX: M54.6 Pain in thoracic spine (principal); I10 Essential (primary) hypertension; E10.40 Type 1 diabetes mellitus with diabetic neuropathy, unspecified; Z79.4 Long term (current) use of insulin; F17.200 Nicotine dependence, unspecified, uncomplicated
CPT/HCPCS: 99284

== ENCOUNTER 2020-01-05 19:33 | Emergency (ER) | payer SELFPAY ==
[2019-12-20 09:36] VITALS: BMI 17.8
[2020-01-05 19:35] VITALS: BP 112/73; PULSE 100; RESP 18; TEMP 36.8; O2SAT 98; BMI 21.2
--- NOTE | 2020-01-05 20:14 | ED.DCSUM_ITS ---
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 He reports that he has dental pain that began yesterday. Is a dull, throbbing pain is 10 of 10 worsening to 10 currently is worsened by eating, hot, or cold temperatures. He is taken Mobic without relief. He reports he has jaw swelling that began today. Patient denies any fever, chills, or other complaints. Physical Examination: Vitals: Stable. Afebrile. Mouth: No trismus. No edema of the floor of the mouth. Widespread dental decay. Patient complains of pain to the right side of his mandible. There are multiple absent teeth and obvious caries. There is no focal abscess. General: A&O x 3. NAD. Cardiovascular exam: Regular rate and rhythm, no murmur, rub or gallop. Respiratory exam: Clear to auscultation bilaterally. No wheezes or stridor. Abdominal exam: Soft, nontender, nondistended, normal bowel sounds. No peritoneal signs. Extremity: No clubbing, cyanosis, or edema. Emergency Department Course and Treatment: An [facility] report was obtained which shows he had 2 prescriptions for opiates this month. He was given [place] and clindamycin here. Treatment Plan: Patient is in pain management. I do not think that treating this pain with opiate-based medications is indicated or warranted. He will be discharged with clindamycin and instructed to follow-up with dentist as soon as possible. He is given a list of local dentist. Return to the emergency department for any worsening symptoms. Disposition: To home in improved and stable condition. Impression: 1. Dental pain. This note was generated with [employer] dictation software. It may contain incorrect words, spelling, and punctuation that were not noted in review of the chart prior to signing ED Disposition - Plan for ED Patient: Disposition: Home or Assisted Living Instructions: ED Tooth Pain Prescriptions: Clindamycin HCl [Cleocin] 300 mg PO Q6H #40 cap Prescription Printed Referrals: Dentist,Your [STAFF PHYSICIAN] - As soon as possible
[2020-01-05 20:24] VITALS: BP 109/75; PULSE 66
[2020-01-05] MEDS: Clindamycin HCl 150 MG Capsule 300 MG PO (20:27)
[2020-01-05] MEDS: HYDROcodone Bitartrate/Apap 5/325 Tablet PO (20:27)
== END 2020-01-05 20:33 | disposition home or self-care (01) ==
LOC: ED 20:21
PROVIDERS: Emergency Provider Emergency Medicine; PCP Internal Medicine
DX: K08.89 Other specified disorders of teeth and supporting structures (principal); E10.40 Type 1 diabetes mellitus with diabetic neuropathy, unspecified; Z79.4 Long term (current) use of insulin; Z72.0 Tobacco use
CPT/HCPCS: 99283

== ENCOUNTER 2020-01-10 08:03 | Emergency (ER) | payer SELFPAY ==
[2020-01-10 08:04] VITALS: BP 141/90; PULSE 86; RESP 15; TEMP 36.3; O2SAT 100; BMI 21.2
--- NOTE | 2020-01-10 08:23 | ED.DCSUM_ITS ---
- ER Visit Summary Date of Service: 01/10/20 Chief Complaint: Back pain History of Present Illness: The patient is a 29 M who was seen previously for T9 compression fracture after a fall. He has continued pain to the area. Denies any new symptoms. He is planning to follow-up with pain management, but cannot get an appointment for 2 months. Physical Examination: Afebrile and vital signs unremarkable. Mid thoracic spine tender to palpation but otherwise unremarkable. Lumbar spine nontender. No CVA tenderness. Abdomen soft and nontender. Good strength and sensation distally. Test Results: None indicated Emergency Department Course and Treatment: Patient will be treated with Toradol as this has worked in the past. He tolerated this well in the past. He will follow-up with his PCP for pain medicines. Follow-up with [facility] as planned. Treatment Plan: As above Disposition: Discharge Impression: T9 compression fracture subsequent visit This note was generated with [employer] dictation software. It may contain incorrect words, spelling, and punctuation that were not noted in review of the chart prior to signing ED Disposition - Plan for ED Patient: Referrals: Queta Woodson MD [Primary Care Provider] -
--- NOTE | 2020-01-10 08:24 | ED.DEP ---
ED Disposition - Plan for ED Patient: Instructions: Back Fracture (Compression Fracture) Referrals: Queta Woodson MD [Primary Care Provider] -
[2020-01-10] MEDS: Ketorolac 30 MG/ML Syringe IM (08:34)
== END 2020-01-10 08:43 | disposition home or self-care (01) ==
LOC: ED 08:35
PROVIDERS: Emergency Provider Emergency Medicine; PCP Internal Medicine
DX: S22.079D Unspecified fracture of T9-T10 vertebra, subsequent encounter for fracture with routine healing (principal); X58.XXXD Exposure to other specified factors, subsequent encounter; Z72.0 Tobacco use
CPT/HCPCS: 96372; 99282

== ENCOUNTER 2020-01-23 23:08 | Emergency (ER) | payer SELFPAY ==
[2020-01-23 23:09] VITALS: BP 141/86; PULSE 120; RESP 16; TEMP 36.6; O2SAT 98; BMI 18.6
--- NOTE | 2020-01-23 23:25 | ED.VIS.GEN ---
History of Present Illness Chief Complaint: Cough Informant: Patient Narrative: Stated for the last few days he has had a dry nonproductive cough. No shortness of breath. No fevers or chills. He developed some diarrhea as well. He has had a few episodes of loose watery diarrhea per day. No home treatment. Stated that one person at his work tested positive for coronavirus. Denies any other problems. Current severity is mild - Past Medical History (1) Bipolar disorder Status: Chronic (2) Dermatitis Status: Chronic (3) Diabetic neuropathy Status: Chronic (4) Hypertension Status: Chronic (5) Type 1 diabetes mellitus Status: Chronic Past Medical History - Allergies and Home Meds Allergies/Adverse Reactions: Allergies aspirin Allergy (Verified 01/23/20 23:09) Anaphylaxis cyclobenzaprine [From Flexeril] Allergy (Verified 01/23/20 23:09) Anaphylaxis morphine Allergy (Verified 01/23/20 23:09) Anaphylaxis naproxen Allergy (Verified 01/23/20 23:09) Anaphylaxis Penicillins [PCN] Allergy (Verified 01/23/20 23:09) Anaphylaxis Primary Care Physician: Queta Woodson MD [Primary Care Provider] - Prior records reviewed: Yes Past Medical History: - - See problem list Surgical History: noncontributory, - Smoking Status: Current every day smoker Alcohol: None Drugs: None Review of Systems General: Denies: Chills, Fever, Sweats Eyes: Denies: Visual changes - bilaterally, Diplopia ENT: Denies: Rhinorrhea, Sore throat Cardiovascular: Denies: Chest pain, Palpitations Respiratory: Reports: Cough. Denies: Dyspnea, Dyspnea on exertion Gastrointestinal: Reports: Diarrhea. Denies: Abdominal pain, Nausea, Vomiting, Melena, Hematochezia Genitourinary: Denies: Dysuria, Hematuria, Frequency Musculoskeletal: Denies: Back pain, Extremity Pain Skin: Denies: Rash, Wounds Neurological: Denies: Headache, Weakness, Numbness Physical Exam Vital Signs/Narrative: Vital Signs Temp Pulse Resp BP Pulse Ox 01/23/20 23:09 97.9 F 120 H 16 141/86 H 98 General: Well nourished, Well developed, No Acute Distress Head: Normocephalic, Atraumatic Eyes: Perrl, EOMI ENT: Moist mucous membranes, No rhinorrhea Neck: Supple, Nontender Cardiovascular: Regular rate, Regular rhythm, No murmurs Respiratory: No distress, CTA bilaterally, Chest nontender Abdomen: Soft, Nontender, Nondistended, Normal bowel sounds Back: Nontender, Normal Inspection Extremities: Nontender, No edema Skin: Normal color, No rash Neurological: Alert, Oriented x3, Cranial nerves II-XII grossly intact, Normal Strength, Normal Sensation Psychological: Normal affect, Normal Mood Diagnostic/Tx/Re-eval - Medical Decision Making Patient is resting comfortably. I do not see any signs or symptoms of dehydration. Will use Imodium for his diarrhea. He will drink plenty of fluids. His lungs are completely clear to auscultation with a normal pulse ox. I do not feel he needs a chest x-ray. Coronavirus testing pending. We will follow-up as an outpatient. He will self quarantine until his results are back ED Disposition - Plan for ED Patient: Disposition: Home or Assisted Living Diagnosis: Cough, Diarrhea Instructions: ED Viral Syndrome Referrals: Queta Woodson MD [Primary Care Provider] - Additional Instructions: You are excuse from work until your coronavirus test come back
[2020-01-23] MEDS: Ibuprofen 600 MG Tablet PO (23:43)
== END 2020-01-23 23:46 | disposition home or self-care (01) ==
PROVIDERS: Emergency Provider Emergency Medicine; PCP Internal Medicine
DX: R05 Cough (principal); R19.7 Diarrhea, unspecified; F17.200 Nicotine dependence, unspecified, uncomplicated
CPT/HCPCS: 87635; 99283; U0003

== ENCOUNTER 2020-02-02 21:56 | Emergency (ER) | payer SELFPAY ==
[2020-02-02 21:57] VITALS: BP 140/90; PULSE 90; RESP 18; TEMP 36.3; O2SAT 100; BMI 21.2
--- NOTE | 2020-02-02 22:07 | RAD_ITS ---
STUDY: X-RAY - PELVIS AND RIGHT HIP REASON FOR EXAM: Male, 29 years old. FALL TODAY, PAIN TECHNIQUE: 3 views of the pelvis and hip. COMPARISON: None. FINDINGS: There is a non-specific bowel gas pattern. Normal visualized soft tissue structures. Normal bilateral iliac wings, sacroiliac joints and visualized sacrum. Normal bilateral superior and inferior pubic rami. Normal pubic symphysis. Normal bilateral ischial tuberosities. Normal visualized femoral head. Normal acetabulum. Normal hip joint. RAD/HIP, UNI W/ Pelvis 2-3 Views IMPRESSION: Normal x-ray examination of the pelvis and hip. Electronically Signed: Haider Masters MD at 22:34 EDT , Service support ,
[2020-02-02] MEDS: Acetaminophen 500 MG Tablet 1000 MG PO (22:10)
--- NOTE | 2020-02-02 22:23 | ED.VISSUMM ---
- ER Visit Summary Date of Service: 02/02/20 Chief Complaint: Right hip pain History of Present Illness: The patient is a [address] Woodson. Patient reports that approximate 1 hour ago he tripped over a piece of his bed and injured his right hip. Reports he is a sharp pain is 10 of 10 severity. Is worsened by walking relieved by rest. Is not taken anything for pain. Denies any numbness or weakness. He does have a history of diabetic neuropathy and this is unchanged. Patient denies any other injuries. No blow to the head or loss of consciousness. Is not on anticoagulants. No neck, back, shoulder, or wrist pain. Review of systems: General: No fever, chills, cold sweats. Cardiovascular: No chest pain, palpitations. Respiratory: No cough, shortness of breath, dyspnea on exertion. Gastrointestinal: No abdominal pain, nausea, vomiting, diarrhea, melena, or hematochezia. Genitourinary: No dysuria, frequency, hematuria. Skin: No rash. Neuro: No headache, numbness, weakness. Physical Examination: Vitals: Stable. Afebrile. Neck: No vertebral tenderness. Full ROM without difficulty. Cleared by NEXUS criteria. Back: No vertebral tenderness. General: A&O x 3. NAD. Cardiovascular exam: Regular rate and rhythm, no murmur, rub or gallop. Respiratory exam: Chest nontender. No crepitus. Clear to auscultation bilaterally. No wheezes or stridor. Abdominal exam: Soft, nontender, nondistended, normal bowel sounds. No pain in RUQ or LUQ specifically. No peritoneal signs. Extremity: Moderate tenderness palpation over his right greater trochanter. He has no pain with internal or external rotation of his hip. He is walking about the room when I entered. Test Results: Right hip x-ray is negative. Emergency Department Course and Treatment: Patient was treated with Tylenol. He refused crutches. Treatment Plan: Patient will be discharged with symptomatic care. Instructed to ice the area and use Tylenol and/or ibuprofen for pain. Follow-up with his primary care physician 1 week if not improving. Return to the emergency department for any worsening symptoms. Disposition: To home in improved and stable condition. Impression: 1. Fall. 2. Right hip pain. This note was generated with Dragon dictation software. It may contain incorrect words, spelling, and punctuation that were not noted in review of the chart prior to signing ED Disposition - Plan for ED Patient: Instructions: ED CONTUSION Hip Referrals: Queta Woodson MD [Primary Care Provider] - 1 Week if not improving
== END 2020-02-02 22:44 | disposition home or self-care (01) ==
PROVIDERS: Emergency Provider Emergency Medicine; PCP Internal Medicine
DX: M25.551 Pain in right hip (principal); W18.09XA Striking against other object with subsequent fall, initial encounter; Q66.89 Other specified congenital deformities of feet; E10.40 Type 1 diabetes mellitus with diabetic neuropathy, unspecified; Z79.4 Long term (current) use of insulin; Z72.0 Tobacco use
CPT/HCPCS: 73502; 99283

== ENCOUNTER 2020-02-08 21:07 | Emergency (ER) | payer SELFPAY ==
[2020-02-08 21:08] VITALS: BP 116/76; PULSE 105; RESP 18; TEMP 36.6; O2SAT 99; BMI 21.2
--- NOTE | 2020-02-08 22:54 | ED.DCSUM_ITS ---
History of Present Illness Chief Complaint: Other, Pain/Inj Informant: Patient Onset: Today Narrative: Is a 29-year-old male with history of diabetes mellitus type 1 presenting with 1 day of rectal pain. Patient states he strained have a bowel movement suddenly had pain and burning with a bowel movement. He denies any blood in his stool. He notes he has been straining a lot with stools lately. He did have some associated nausea today. Patient notes a month ago he was having diarrhea but he started taking Imodium and that helped. He is not currently on any Imodium. Patient not take anything [id number] for symptoms. He denies any other complaints at this time. Past Medical History - Allergies and Home Meds Allergies/Adverse Reactions: Allergies aspirin Allergy (Verified 02/08/20 21:10) Anaphylaxis cyclobenzaprine [From Flexeril] Allergy (Verified 02/08/20 21:10) Anaphylaxis morphine Allergy (Verified 02/08/20 21:10) Anaphylaxis naproxen Allergy (Verified 02/08/20 21:10) Anaphylaxis Penicillins [PCN] Allergy (Verified 02/08/20 21:10) Anaphylaxis Primary Care Physician: Queta Woodson MD [Primary Care Provider] - Past Medical History: - - Type 1 diabetes mellitus Surgical History: noncontributory, - Smoking Status: Current every day smoker Review of Systems General: Denies: Chills, Fever, Sweats Eyes: Denies: Visual changes - bilaterally, Diplopia ENT: Denies: Rhinorrhea, Sore throat Cardiovascular: Denies: Chest pain, Palpitations Respiratory: Denies: Dyspnea, Cough, Dyspnea on exertion Gastrointestinal: Reports: Constipation, - - Rectal pain. Denies: Abdominal pain, Nausea, Vomiting, Diarrhea, Melena, Hematochezia Genitourinary: Denies: Dysuria, Hematuria, Frequency Musculoskeletal: Denies: Back pain, Extremity Pain Skin: Denies: Rash, Wounds Neurological: Denies: Headache, Weakness, Numbness Physical Exam Vital Signs/Narrative: Vital Signs Temp Pulse Resp BP Pulse Ox 02/08/20 21:08 97.9 F 105 H 18 116/76 99 Inital Vital Signs reviewed: Yes General: Well nourished, Well developed, No Acute Distress Head: Normocephalic, Atraumatic Eyes: Perrl, EOMI ENT: Moist mucous membranes, No rhinorrhea Neck: Supple, Nontender Cardiovascular: Regular rate, Regular rhythm, No murmurs Respiratory: No distress, CTA bilaterally, Chest nontender Abdomen: Soft, Nontender, Nondistended, Normal bowel sounds Rectal: Tenderness, - - Patient has multiple nonthrombosed hemorrhoids most pronounced at the 12 o'clock position. No active bleeding. No fissures noted. Back: Nontender, Normal Inspection Extremities: Nontender, No edema Skin: Normal color, No rash Neurological: Alert, Oriented x3, Cranial nerves II-XII grossly intact, Normal Strength, Normal Sensation Psychological: Normal affect, Normal Mood Diagnostic/Tx/Re-eval - Medical Decision Making Patient evaluated for 1 day of rectal pain. Rectal exam is consistent with hemorrhoids. Patient is counseled that he does not currently have a thrombosed hemorrhoid does not require any emergent surgery or I&D at this time. He will be treated symptomatically with rectal steroids, Colace is instructed on sitz bath. He is encouraged to avoid straining with bowel movements to help them heal. Patient is counseled on signs and symptoms requiring return to the emergency room. Patient verbalizes agreement and understand this plan. Patient discharged home in stable and improved condition. ED Disposition - Plan for ED Patient: Disposition: Home or Assisted Living Diagnosis: External hemorrhoids Instructions: ED Hemorrhoids Prescriptions: Docusate Sodium [Colace] 100 mg PO BID PRN #20 cap PRN Reason: Constipation Transmission Status: Pending to [facility] #30 Hydrocortisone 1% Crm [Hytone] 1 applic TOPICAL BID #1 tube Transmission Status: Pending to [facility] #30 Referrals: Queta Woodson MD [Primary Care Provider] - Additional Instructions: Avoid straining as this is the #1 cause of hemorrhoids. Follow-up with your primary care doctor they do not resolve with these treatments. He can also use [id number] witch kerry pads to help with the pain. Also use sitz bath's to help relieve pressure.
[2020-02-08 23:34] VITALS: BP 110/72; PULSE 90; RESP 15; O2SAT 98
== END 2020-02-08 23:35 | disposition home or self-care (01) ==
PROVIDERS: Emergency Provider Emergency Medicine; PCP Internal Medicine
DX: K64.4 Residual hemorrhoidal skin tags (principal); E10.9 Type 1 diabetes mellitus without complications; Z79.4 Long term (current) use of insulin; F17.200 Nicotine dependence, unspecified, uncomplicated
CPT/HCPCS: 99282

== ENCOUNTER 2020-02-20 20:15 | Observation (INO) | payer SELFPAY ==
[2020-02-20 20:16] VITALS: BP 129/76; PULSE 125; RESP 18; TEMP 35.3; O2SAT 98; BMI 19.1
[2020-02-20 20:52] LABS: Absolute Lymphocyte Count 1.71 X10^3/uL (0.83-4.51); Absolute Neutrophil Count 4.9 X10^3/uL (2.0-7.7); Basophil# 0.05 X10^3/uL; Basophil% 0.7 % (0-1); Eosinophil# 0.05 X10^3/uL; Eosinophils% 0.7 % (0-5); Hematocrit 44.5 % (40-54); Hemoglobin 15.1 g/dL (13.0-16.5); Lymphocyte # 1.71 X10^3/ul (4.0); Lymphocyte % 23.5 % (19-41); Mean Corp Hgb Conc 33.9 g/dL (32-36); Mean Corpuscular Hgb 30.6 pg (27.0-32.0); Mean Corpuscular Volume 90.3 fL (80-94); Mean Platelet Vol. 9.5 fl (6.2-12.0); Monocyte# 0.54 X10^3/uL; Monocyte% 7.4 % (0-10); NRBC Flagged by Analyzer 0 % (0-5); Neutrophil % 67.4 % (47-70); Platelet Count 260 K/mm3 (150-450); RBC Distribution Width CV 12.7 % (11.6-14.6); RBC Distribution Width SD 41.1 fl (35.1-43.9); Red Blood Count 4.93 M/mm3 (4.6-6.2); White Blood Count 7.3 K/mm3 (4.4-11.0)
[2020-02-20 21:16] VITALS: RESP 16
[2020-02-20 21:16] LABS: Anion Gap 9 (5-15); BUN 12 mg/dL (7-18); BUN/Creat Ratio 14.4 RATIO (10-20); Calcium,Total 9.1 mg/dL (8.5-10.1); Chloride 93 mmol/L (98-107); Creatinine, Serum 0.83 mg/dL (0.70-1.30); EST Glomerular Filtration Rate 116 mL/min (>60); Est Glom Filt Rate - Afr Amer 140 mL/min (>60); Estimated Creatinine Clearance 103.45 ml/min; Glucose 803 mg/dL (74-106); Potassium 4.7 mmol/L (3.5-5.1); Sodium Level 127 mmol/L (136-145)
[2020-02-20 21:16] LABS: Amphetamine Urine VISTA NEGATIVE (<1000 ng/mL); Barbiturate Urine VISTA NEGATIVE (< 200 ng/mL); Benzodiazepine Urine VISTA NEGATIVE (< 200 ng/mL); Cocaine Urine VISTA NEGATIVE (< 300 ng/mL); Ecstacy Urine VISTA NEGATIVE (< 500 ng/mL); Methadone Urine VISTA NEGATIVE (< 300 ng/mL); PCP Urine VISTA NEGATIVE (< 25 ng/mL); THC Urine VISTA POSITIVE (< 50 ng/mL); Vista UDS pH Range 6
[2020-02-20 21:18] LABS: Alcohol, Blood (Medical)-Serum < 3.0 mg/dL
[2020-02-20 22:00] VITALS: RESP 18
[2020-02-20 23:00] VITALS: RESP 16
[2020-02-20] MEDS: Insulin Lispro 100 UNIT/ML INSULN.PEN 15 UNIT SC (23:13)
[2020-02-20] MEDS: 0.9% Normal Saline 1,000 ML 999 ML IV ×2 (23:13→23:56)
--- NOTE | 2020-02-20 23:53 | PCM.HP.STD ---
Problem List (1) Hyperglycemia Status: Acute (2) Bipolar disorder Status: Chronic (3) Hypertension Status: Chronic (4) Diabetic neuropathy Status: Chronic (5) Dermatitis Status: Chronic (6) Type 1 diabetes mellitus Status: Chronic History of Present Illness Date of Admission: 02/20/20 Chief Complaint: Suicidal ideation The patient is a 29 year old M with a significant history of bipolar disorder with previous suicide attempts; tobacco abuse; marijuana abuse and diabetes mellitus who presents to the emergency department with suicidal ideation. Patient has thoughts of killing himself by drinking bleach. Three months ago he drank bleach in a suicidal attempts. At the emergency department his blood glucose was found to be severely elevated at 803. He ran out of his medication 2 months ago. Medication which he ran out off includes his insulin; and Lamictal that he takes for bipolar disorder. Patient reports polyphagia, polydipsia and polyuria. Emergency department doctor discussed the case with crisis who talked to patient over the phone and are willing to help with placement after patient is medically stable. Past Medical History Past Medical History (Chronic Problems): Chronic Problems (Last Reviewed 02/21/20 @ 00:[address] Elmer Leonardo MD) Bipolar disorder (Chronic) Hypertension (Chronic) Diabetic neuropathy (Chronic) Dermatitis (Chronic) Type 1 diabetes mellitus (Chronic) Medical History: Medical History (Last Reviewed 02/21/20 @ 00:[address] Elmer Leonardo MD) Anxiety and depression F41.9, F32.9 Bipolar 1 disorder F31.9 Diabetes E11.9 Frequent headaches R51 Chronic leg pain M79.606, G89.29 Hypertension I10 Allergies aspirin Allergy (Verified 02/20/20 20:16) Anaphylaxis cyclobenzaprine [From Flexeril] Allergy (Verified 02/20/20 20:16) Anaphylaxis morphine Allergy (Verified 02/20/20 20:16) Anaphylaxis naproxen Allergy (Verified 02/20/20 20:16) Anaphylaxis Penicillins [PCN] Allergy (Verified 02/20/20 20:16) Anaphylaxis Surgical History: Surgical History (Last Reviewed 02/21/20 @ 00:[address] Elmer Leonardo MD) left leg surgery repair club foot Surgical History: - - Right knee surgery Smoking Status: Current every day smoker - *Family History Maternal Family History: Family History (Last Reviewed 12/20/19 @ 09:34 by Brandy Delgado) Mother Diabetes Hypertension Paternal Family History: Family History (Last Reviewed 12/20/19 @ 09:34 by Brandy Delgado) Mother Diabetes Hypertension Review of Systems Constitutional: Denies: Chills, Fever, Weight Change HEENT: Denies: Head Aches, Sinus Congestion, Sinus Drainage Cardiovascular: Denies: Chest Pain, Palpitations Respiratory: Denies: Cough, Shortness of breath at rest, Sputum production Gastrointestinal: Denies: Abdominal Pain, Nausea, Vomiting Genitourinary: Reports: Frequency - Increased frequency. Denies: Dysuria Musculoskeletal: Reports: Back Pain - Mild. Denies: Joint Pain, Joint Tenderness Skin: Denies: Rash, Wounds Neurological: Denies: Numbness, Tingling, Focal weakness Psychiatric: Reports: Suicidal Ideations. Denies: Homicidal Ideations Endocrine: Reports: Polydipsia Hematologic/ Lymphatic: Denies: Easy Bruising, Easy Bleeding VTE Information - Inpt Only VTE Present on Admission: No VTE Mechan Device Prophylaxis: None VTE Pharm Prophylaxis ordered?: No Reason prophylaxis not ordered:: Treatment Not Indicated - Low risk; encouraged to ambulate Patient Problems: Active and Suspected Problems (Last Reviewed 02/21/20 @ 00:[address] Elmer Leonardo MD) Hyperglycemia (Acute) - Physical Exam Vitals/I&O's: Vital Signs Temp Pulse Resp BP Pulse Ox 95.6 F L 125 H 16 129/76 H 98 02/20/20 20:16 02/20/20 20:16 02/20/20 23:00 02/20/20 20:16 02/20/20 20:16 Oxygen Delivery Method Room Air Weight: 55.2 kg Body Mass Index (BMI) 19.1 Finger Stick Blood Glucose 266 General: Alert, Oriented x3, Cooperative HEENT: Atraumatic, PERRLA, EOMI, Normocephalic Oral: - - Poor dentition Neck: Supple, No JVD, Negative Carotid Bruits Lungs: Clear to auscultation, Normal air movement Cardiovascular: Regular rate, Regular Rhythm, Normal S1, Normal S2, No murmurs Abdomen: Bowel Sounds Present, Soft, Non Tender Extremities: No edema, Capillary Refill Less than 3 Seconds, Tenderness - Right knee Skin: No rashes, No breakdown Musculoskeletal: No Tenderness to Palpation of Joints or Extremities Neurological: Cranial nerves II-XII grossly intact Psych/Mental Status: Normal Affect, Appropriate Laboratory Results 02/20/20 20:35: WBC 7.3, RBC 4.93, Hgb 15.1, Hct 44.5, MCV 90.3, MCH 30.6, MCHC 33.9, RDW Std Deviation 41.1, RDW Coeff of Haris 12.7, Plt Count 260, MPV 9.5, Immature Gran % (Auto) 0.300, Neut % (Auto) 67.4, Lymph % (Auto) 23.5, [place] % (Auto) 7.4, Eos % (Auto) 0.7, Baso % (Auto) 0.7, Absolute Neuts (auto) 4.9, Absolute Lymphs (auto) 1.71, Nucleated RBC % 0 02/20/20 20:35: Sodium 127 L, Potassium 4.7, Chloride 93 L, Carbon Dioxide 25.0, Anion Gap 9, BUN 12, Creatinine 0.83, Estim Creat Clear Calc 103.45, Est GFR (MDRD) Af Amer 140, Est GFR (MDRD) Non-Af 116, BUN/Creatinine Ratio 14.4, Glucose 803 H*, Calcium 9.1 02/20/20 20:35: Ethyl Alcohol < 3.0 02/20/20 20:45: Urine Opiates Screen NEGATIVE, Urine Methadone Screen NEGATIVE, Ur Barbiturates Screen NEGATIVE, Ur Phencyclidine Scrn NEGATIVE, Ur Amphetamines Screen NEGATIVE, U Methamphetamin-MDMA NEGATIVE, U Benzodiazepines Scrn NEGATIVE, Urine Cocaine Screen NEGATIVE, U Cannabinoids Screen POSITIVE H, Ur Drug Screen Comment Current Medications Sodium Chloride () 1,000 mls @ 999 mls/hr IV .Q1H1M KRISTY Stop: 02/21/20 00:35 Last Admin: 02/20/20 23:13 Dose: 999 mls/hr Documented by: Assessment/Plan All Active Problems (Last Reviewed 02/21/20 @ 00:[address] Elmer Leonardo MD) Hyperglycemia (Acute) The patient is a 29 year old M with a significant history of bipolar disorder with previous suicide attempts; tobacco abuse; marijuana abuse and diabetes mellitus who presents to the emergency department with suicidal ideation and found to have hyperglycemia. Diabetes mellitus with hyperglycemia On presentation his blood glucose was 803 on BMP. Sodium was 127. Corrected sodium is 138. Bicarbonate was 25. Serum osmolality and serum ketones ordered. Patient received 15 units of lispro subcutaneous. Also he received IV fluid bolus. His blood glucose decreased to 328. Initial plan was to take patient to the intensive care unit and put patient on insulin drip but with this precipitous drop of blood glucose patient to be observed at the medical surgical unit and put on Accu-Chek QA CHS with correction scale insulin. Half normal Saline with 20 of potassium at 250 mL's per hour for 1.5 L ordered. Long-acting insulin and prandial insulin ordered. Diabetic education. We will put patient on 1800-calorie restricted diet. Bipolar disorder Patient reported that he is to take Lamictal 200 mg twice daily. He appears to be unsure. Will start patient on Lamictal 100 mg twice daily. Crisis was consulted from the emergency department. Inpatient consult placed for crisis. Suicidal ideation. Sitter by bedside Suicidal precautions. Crisis consult as above. Tobacco abuse Counseled Nicotine patch prescribed. DVT prophylaxis Encourage patient to ambulate. OBSV E&M: 54628 Initial observation care L3
--- NOTE | 2020-02-20 23:53 | ED.VISSUMM ---
- ER Visit Summary Date of Service: 02/20/20 Chief Complaint: Suicidal ideation History of Present Illness: The patient is a 29 M presenting with suicidal ideation. Patient states that he has been very depressed and has had suicidal thoughts that have been worsening over the past month. He has had plans to drink bleach. His last suicide attempt was 3 months ago and he drank bleach at that time. He has been out of his medications for the past 2 months. He states his father of an overdose 5 years ago and his mother 2 years ago of an aneurysm. He admits to marijuana use, denies other drug use. Denies alcohol use. Physical Examination: Vitals are stable. Patient is afebrile. Alert no acute distress. HEENT exam is unremarkable. Neck is supple. Lungs are clear and equal bilaterally. Heart is regular rate and tachycardic Abdomen is soft nontender nondistended. Extremities are unremarkable. Skin is warm and dry. No focal neurologic deficit. Suicidal ideation Remainder of exam is unremarkable. Emergency Department Course and Treatment: CBC, chemistries unremarkable except sodium 127, glucose 803. Anion gap is normal. Tox positive for THC. Alcohol negative. Patient given IV fluids, insulin. Patient states he has been out of his insulin for the past 2 months. Discussed with the hospitalist for admission. He will be started on insulin drip. Disposition: Admission Impression: Hyperglycemia, noncompliance, suicidal ideation This note was generated with [employer] dictation software. It may contain incorrect words, spelling, and punctuation that were not noted in review of the chart prior to signing ED Disposition - Plan for ED Patient: Referrals: Queta Woodson MD [Primary Care Provider] -
[2020-02-21] VITALS (8 sets, daily range): BP systolic 106–130; BP diastolic 59–89; PULSE 79–111; RESP 16; TEMP 36.1–37.1; O2SAT 95–99; BMI 17.2
[2020-02-21 00:26] LABS: Bedside Glucose 328 mg/dL (70-110)
[2020-02-21] MEDS: 0.9% Normal Saline 1,000 ML 999 ML IV ×2 (01:28→02:32)
[2020-02-21 01:41] LABS: Anion Gap 3 (5-15); BUN 8 mg/dL (7-18); BUN/Creat Ratio 18.1 RATIO (10-20); Calcium,Total 7.7 mg/dL (8.5-10.1); Chloride 105 mmol/L (98-107); Creatinine, Serum 0.44 mg/dL (0.70-1.30); EST Glomerular Filtration Rate 241 mL/min (>60); Est Glom Filt Rate - Afr Amer 291 mL/min (>60); Estimated Creatinine Clearance 176.24 ml/min; Glucose 255 mg/dL (74-106); Potassium 3.4 mmol/L (3.5-5.1); Sodium Level 137 mmol/L (136-145)
[2020-02-21] MEDS: lamoTRIgine 100 MG Tablet PO ×3 (01:41→21:31)
[2020-02-21] MEDS: Insulin Lispro 100 UNIT/ML INSULN.PEN SC ×3 (01:42→21:32)
[2020-02-21 01:55] LABS: Bedside Glucose 247 mg/dL (70-110)
[2020-02-21] MEDS: Diphenoxylate/Atrop 1 Tablet 2 TABLET PO (03:57)
[2020-02-21] MEDS: Levothyroxine 75 MCG Tablet PO (06:04)
[2020-02-21 06:07] LABS: Anion Gap 5 (5-15); BUN 7 mg/dL (7-18); BUN/Creat Ratio 15.7 RATIO (10-20); Calcium,Total 7.8 mg/dL (8.5-10.1); Chloride 105 mmol/L (98-107); Creatinine, Serum 0.45 mg/dL (0.70-1.30); EST Glomerular Filtration Rate 239 mL/min (>60); Est Glom Filt Rate - Afr Amer 289 mL/min (>60); Estimated Creatinine Clearance 172.32 ml/min; Glucose 268 mg/dL (74-106); Potassium 4.1 mmol/L (3.5-5.1); Sodium Level 138 mmol/L (136-145)
[2020-02-21 06:16] LABS: Bedside Glucose 286 mg/dL (70-110)
--- NOTE | 2020-02-21 07:52 | NURSING ---
Crisis called at this time, awaiting call back for time patient will be seen.
--- NOTE | 2020-02-21 07:57 | NURSING ---
Return call from crisis, they had already evaluated patient on admission and will start preparations for placement.
[2020-02-21] MEDS: Insulin Lispro 100 UNIT/ML INSULN.PEN 8 UNIT SC ×3 (08:52→18:35)
[2020-02-21] MEDS: Glucerna Shake 120 ML LIQUID PO ×4 (08:59→21:40)
[2020-02-21 09:06] LABS: Bedside Glucose 227 mg/dL (70-110)
--- NOTE | 2020-02-21 09:58 | PN_ITS ---
Patient Problems: Active and Suspected Problems (Last Reviewed 02/21/20 @ 00:[address] Elmer Leonardo MD) Hyperglycemia (Acute) Subjective: No issues overnight, still discusses his significant depression and his suicide attempt Vitals/I&O's: Vital Signs Temp Pulse Resp BP Pulse Ox 98.7 F 79 16 130/85 H 97 02/21/20 05:51 02/21/20 05:51 02/21/20 05:51 02/21/20 05:51 02/21/20 07:25 Oxygen Delivery Method Room Air Weight: 109 lb 14.4 oz Body Mass Index (BMI) 17.2 Finger Stick Blood Glucose 328 Intake and Output for Last 24 Hours 02/19/20 02/20/20 02/21/20 23:59 23:59 23:59 Intake Total 715.95 / 715.95 4020.83 / 4020.83 Balance 715.95 / 715.95 4020.83 / 4020.83 General: Alert, Oriented x3, Cooperative, No apparent distress HEENT: Atraumatic, PERRLA, EOMI, Normocephalic Oral: Moist Mucosa Neck: Supple, No JVD Lungs: Clear to auscultation, Normal air movement, No rhonchi, No wheeze, No rales Cardiovascular: Regular rate, Regular Rhythm, Normal S1, Normal S2, No murmurs Abdomen: Soft, Non Tender, Non-Distended, No Hepato-splenomegaly Extremities: No edema, Capillary Refill Less than 3 Seconds Skin: No rashes, No breakdown Neurological: Neuro grossly intact, Sensory exam intact to light touch and pain Psych/Mental Status: Suicidal Laboratory Results 02/20/20 20:33: Serum Osmolality Cancelled, Acetone Level NEGATIVE 02/20/20 20:33: Miscellaneous Test Pending 02/20/20 20:35: WBC 7.3, RBC 4.93, Hgb 15.1, Hct 44.5, MCV 90.3, MCH 30.6, MCHC 33.9, RDW Std Deviation 41.1, RDW Coeff of Haris 12.7, Plt Count 260, MPV 9.5, Immature Gran % (Auto) 0.300, Neut % (Auto) 67.4, Lymph % (Auto) 23.5, Jack % (Auto) 7.4, Eos % (Auto) 0.7, Baso % (Auto) 0.7, Absolute Neuts (auto) 4.9, Absolute Lymphs (auto) 1.71, Nucleated RBC % 0 02/20/20 20:35: Sodium 127 L, Potassium 4.7, Chloride 93 L, Carbon Dioxide 25.0, Anion Gap 9, BUN 12, Creatinine 0.83, Estim Creat Clear Calc 103.45, Est GFR (MDRD) Af Amer 140, Est GFR (MDRD) Non-Af 116, BUN/Creatinine Ratio 14.4, Glucose 803 H*, Calcium 9.1 02/20/20 20:35: Ethyl Alcohol < 3.0 02/20/20 20:45: Urine Opiates Screen NEGATIVE, Urine Methadone Screen NEGATIVE, Ur Barbiturates Screen NEGATIVE, Ur Phencyclidine Scrn NEGATIVE, Ur Amphetamines Screen NEGATIVE, U Methamphetamin-MDMA NEGATIVE, U Benzodiazepines Scrn NEGATIVE, Urine Cocaine Screen NEGATIVE, U Cannabinoids Screen POSITIVE H, Ur Drug Screen Comment 02/21/20 00:19: POC Glucose 328 H 02/21/20 01:20: Sodium 137, Potassium 3.4 L, Chloride 105, Carbon Dioxide 29.0, Anion Gap 3 L, BUN 8, Creatinine 0.44 L, Estim Creat Clear Calc 176.24, Est GFR (MDRD) Af Amer 291, Est GFR (MDRD) Non-Af 241, BUN/Creatinine Ratio 18.1, Gluco se 255 H, Calcium 7.7 L 02/21/20 01:34: POC Glucose 247 H 02/21/20 05:35: Sodium 138, Potassium 4.1, Chloride 105, Carbon Dioxide 28.0, Anion Gap 5, BUN 7, Creatinine 0.45 L, Estim Creat Clear Calc 172.32, Est GFR (MDRD) Af Amer 289, Est GFR (MDRD) Non-Af 239, BUN/Creatinine Ratio 15.7, Glucose 268 H, Calcium 7.8 L 02/21/20 06:03: POC Glucose 286 H 02/21/20 08:48: POC Glucose 227 H Current Medications Dextrose (D50w Syringe) 0 gm IV X1 PRN; Protocol PRN Reason: HYPOGLYCEMIA Dextrose (D50w Syringe) 0 gm IV X1 PRN; Protocol PRN Reason: Hypoglycemia Diphenoxylate HCl/Atropine (Lomotil) 2 tablet PO 4X/DAY PRN PRN PRN Reason: LOOSE STOOLS Last Admin: 02/21/20 03:57 Dose: 2 tablet Documented by: Glucagon () 1 mg IM .X1 PRN PRN Reason: Hypoglycemia Insulin Glargine (Lantus (Bkc)) 20 units SC QHS [facility] Last Admin: 02/21/20 01:41 Dose: 20 u Documented by: Insulin Human Lispro (Humalog Kwikpen (Bkc)) 0 unit SC ACHS & 3AM KRISTY; Protocol Last Admin: 02/21/20 08:52 Dose: 4 u Documented by: Insulin Human Lispro (Humalog Kwikpen (Bkc)) 8 unit SC BREAKFAST [facility] Last Admin: 02/21/20 08:52 Dose: 8 units Documented by: Insulin Human Lispro (Humalog Kwikpen (Bkc)) 8 unit SC DINNER KRISTY Insulin Human Lispro (Humalog Kwikpen (Bkc)) 8 unit SC LUNCH KRISTY Lamotrigine (Lamictal) 100 mg PO BID [facility] Last Admin: 02/21/20 08:53 Dose: 100 mg Documented by: Levothyroxine Sodium (Synthroid) 75 mcg PO 0600 [facility] Last Admin: 02/21/20 06:04 Dose: 75 mcg Documented by: Nicotine (Nicoderm Cq (Pbkc)) 14 mg TRANSDERM. DAILY [facility] Last Admin: 02/21/20 08:53 Dose: 14 mg Documented by: Nutritional Formula (Lactose Free) (Glucerna Shake) 120 ml PO 4X/DAY [facility] Last Admin: 02/21/20 08:59 Dose: 120 ml Documented by: Ondansetron HCl (Zofran) 4 mg IV Q8H PRN PRN PRN Reason: NAUSEA/VOMITING Sodium Chloride () 10 - 40 ml IV UD PRN PRN Reason: SALINE FLUSH STROKE Vital Signs/Narrative: Vital Signs Pulse Ox 02/21/20 07:25 97 Medical Necessity - Tobacco Use Smoking Status: Current every day smoker Assessment/Plan All Active Problems (Last Reviewed 02/21/20 @ 00:[address] Elmer Leonardo MD) Hyperglycemia (Acute) 1. Type 1 diabetes with hyperglycemia -He takes 44 units of Lantus at night as well as Humalog during the day and a sliding scale. He states that he stopped taking his insulin 4 weeks ago around the time he had his suicidal attempt with drinking bleach. -Blood sugar now is in the mid to low 200s compared to the 800 -His home medication regimen does not show any insulin whatsoever therefore it is difficult to assess the validity of his statements about what his insulin regimen is at home we will continue with his current insulin regimen that he is on here at the hospital make adjustments as necessary 2. Bipolar disorder/suicidal ideation -Have a suicide plan, it is to drink bleach. He tried this about 4 weeks ago and then went to urgent care -He states that this is a tough time year for him as his father about 4 years ago April and his mom 2 years ago at the end of May -Continue him on Lamictal 100 mg p.o. twice daily, he states that he is to take 200 however because he has not been on Lamictal for at least 4 weeks will titrate up slowly. -Discussed the case with crisis and they will attempt to get him inpatient place ment 3. Tobacco abuse -Cessation discussed -Nicotine patch in place DVT: Ambulation OBSV E&M: 15309 Subsequent observation care L2
[2020-02-21] MEDS: ALPRAZolam 0.5 MG Tablet PO ×2 (10:37→21:42)
--- NOTE | 2020-02-21 11:23 | CASEMGMT ---
Addendum entered by Lulu Wilson 02/21/20 14:45: Pt completed Medicaid application and provided to this worker. SW faxed medicaid application to [facility] [employer]. Original Note: Social Work Note SW updated that crisis is trying to place pt but pt doesn't have any insurance and this worker was asked to speak with pt regarding Medicaid. SW in to speak with pt. SW introduced self and role at [facility]. Pt is alert and orientated x3. Pt confirms that he doesn't currently have insurance. 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 Pt states that about three weeks ago he spoke with Medicaid and was informed that he isn't eligible for Medicaid as he makes too much. SW spoke with pt regarding calling 800 number to speak with someone again regarding Medicaid. Pt agreeable to calling 800 number. SW in room with pt, SW dialed 800 number and provided phone to pt to use to speak with Medicaid. Pt was on phone with Medicaid when it came across the phone that Medicaid is having difficulty at this time and to have pt try again later. SW provided pt with Medicaid application and informed pt that he can complete application and this worker can fax in application. SW also provided pt with 800 number for Medicaid and informed pt that he can also call Medicaid as well. Pt states understanding. DARA placed a call to [facility] and updated Yann on above information. Yann states a referral has been made to [facility]. Lulu Wilson [employer], DIRECTOR PAYER
[2020-02-21 12:55] LABS: Bedside Glucose 116 mg/dL (70-110)
--- NOTE | 2020-02-21 15:58 | NT.THERAPY_ITS ---
Nutrition Therapy Report - History Nutrition Services has been consulted to:: Conduct nutrition education Current diet / nutrition support order:: cardiac, 1800 calorie controlled; glucerna 120mL 4x/day - Anthropometric Measurements Height:: 5 ft 7 in Weight:: 49.85 kg Body Mass Index (BMI):: 17.2 - Relevant Labs Relevant Labs:: Sodium 127 mmol/L (136-145) L 02/20/20 20:35 Potassium 3.4 mmol/L (3.5-5.1) L 02/21/20 01:20 Chloride 93 mmol/L (98-107) L 02/20/20 20:35 Anion Gap 3 (5-15) L 02/21/20 01:20 Creatinine 0.45 mg/dL (0.70-1.30) L 02/21/20 05:35 Glucose 268 mg/dL (74-106) H 02/21/20 05:35 Calcium 7.8 mg/dL (8.5-10.1) L 02/21/20 05:35 - Assessment Food / Nutrition-Related History:: Pt reports he stopped managing his DM ~ 1 month ago- ran out of DM and bipolar medications and was unable/unwilling to care for himself. States he had slightly decreased appetite/PO intake during this time but was trying to drink ONS at home. UBW ~140-150# per pt. CBW 109.9# suggesting a 40#/26.7% wt loss, significant for malnutrition. Eating well at me als this admission, accepting of Glucerna ONS. Says BG was good 2 months ago- noted A1C 11/22/19 was 13.5%. NFPA indicates severe muscle wasting/fat loss in lower extremities, clavicle, and temporal areas. - Nutrition Diagnosis Problem / Etiology / Signs & Symptoms (PES):: Severe malnutrition in context of social/behavioral/environmental circumstances r/t inability to manage DM/health during bipolar episode as evidenced by 26.7% (40#) wt loss x 1-2months, hyperglycemia (BG >800mg/dL upon admission), and estimated PO intake meeting <50% of pt's estimated nutritional needs x 1 month. Evidence of Malnutrition Exists:: Yes Severe PCM:: Social & Environmental circumstances - Nutrition Intervention Nutrition Prescription:: 2649-3612 calories, 60-70 g protein per day - Food / Nutrient Delivery Interventions Summary of nutrition intervention:: Pt appears to have good baseline knowledge of foods that raise blood glucose- states he has previously tried to limit CHO using the plate method. Pt largely concerned w/ re-gaining wt lost and getting adequate protein. Reviewed sources of protein in diet. Provided recipes w/ high protein/high calories for pt. Encouraged pt to continue ONS as able after discharge. Crisis consulted for mental health evaluation- will likely get inpatient treatment upon discharge. Nutrition support ordered as / adjusted to:: Due to evidence of malnutrition, will change diet to 2200 calorie controlled, consistent CHO. Continue Glucerna 120mL 4x/day. Nutrition education provided?: Yes - MNT Monitoring Further MNT monitoring and evaluation required?: Yes MNT Follow-up in:: 3-5 days
[2020-02-21 18:41] LABS: Bedside Glucose 123 mg/dL (70-110)
[2020-02-21 21:50] LABS: Bedside Glucose 201 mg/dL (70-110)
[2020-02-22 03:10] VITALS: BP 101/80; PULSE 102; RESP 16; TEMP 37; O2SAT 99
[2020-02-22] MEDS: Levothyroxine 75 MCG Tablet PO (06:17)
[2020-02-22 06:26] LABS: Bedside Glucose 84 mg/dL (70-110)
[2020-02-22 06:35] LABS: Bedside Glucose 134 mg/dL (70-110)
[2020-02-22 08:26] VITALS: BP 122/80; PULSE 99; RESP 18; TEMP 37; O2SAT 99
[2020-02-22] MEDS: Glucerna Shake 120 ML LIQUID PO ×3 (08:27→17:03)
[2020-02-22] MEDS: lamoTRIgine 100 MG Tablet PO ×2 (08:28→20:25)
[2020-02-22] MEDS: ALPRAZolam 0.5 MG Tablet PO ×2 (08:33→20:33)
[2020-02-22] MEDS: Insulin Lispro 100 UNIT/ML INSULN.PEN 8 UNIT SC ×2 (08:35→12:28)
[2020-02-22 08:45] LABS: Bedside Glucose 120 mg/dL (70-110)
--- NOTE | 2020-02-22 10:36 | PN_ITS ---
Patient Problems: Active and Suspected Problems (Last Reviewed 02/21/20 @ 00:[address] Elmer Leonardo MD) Hyperglycemia (Acute) Subjective: Maintains he still has suicidal ideation, and has significant depression. No issues overnight Vitals/I&O's: Vital Signs Temp Pulse Resp BP Pulse Ox 98.6 F 99 18 122/80 H 99 02/22/20 08:26 02/22/20 08:26 02/22/20 08:26 02/22/20 08:26 02/22/20 08:26 Oxygen Delivery Method Room Air Weight: 109 lb 14.407 oz Body Mass Index (BMI) 17.2 Finger Stick Blood Glucose 328 Intake and Output for Last 24 Hours 02/20/20 02/21/20 02/22/20 23:59 23:59 23:59 Intake Total 715.95 / 715.95 6220.83 / 6220.83 Balance 715.95 / 715.95 6220.83 / 6220.83 General: Alert, Oriented x3, Cooperative, No apparent distress HEENT: Atraumatic, PERRLA, EOMI, Normocephalic Oral: Moist Mucosa Neck: Supple, No JVD Lungs: Clear to auscultation, Normal air movement, No rhonchi, No wheeze, No rales Cardiovascular: Regular rate, Regular Rhythm, Normal S1, Normal S2, No murmurs Abdomen: Soft, Non Tender, Non-Distended, No Hepato-splenomegaly Extremities: No edema, Capillary Refill Less than 3 Seconds Skin: No rashes, No breakdown Neurological: Neuro grossly intact, Sensory exam intact to light touch and pain Psych/Mental Status: Suicidal Laboratory Results 02/21/20 12:46: POC Glucose 116 H 02/21/20 18:33: POC Glucose 123 H 02/21/20 21:30: POC Glucose 201 H 02/22/20 03:05: POC Glucose 134 H 02/22/20 06:18: POC Glucose 84 02/22/20 08:34: POC Glucose 120 H Current Medications Acetaminophen (Tylenol) 650 mg PO Q6H PRN PRN PRN Reason: Pain Score 1-10/10 Alprazolam (Xanax) 0.5 mg PO Q8H PRN PRN PRN Reason: ANXIETY Last Admin: 09/16/20 08:33 Dose: 0.5 mg Documented by: Dextrose (D50w Syringe) 0 gm IV X1 PRN; Protocol PRN Reason: HYPOGLYCEMIA Dextrose (D50w Syringe) 0 gm IV X1 PRN; Protocol PRN Reason: Hypoglycemia Diphenoxylate HCl/Atropine (Lomotil) 2 tablet PO 4X/DAY PRN PRN PRN Reason: LOOSE STOOLS Last Admin: 02/21/20 03:57 Dose: 2 tablet Documented by: Glucagon () 1 mg IM .X1 PRN PRN Reason: Hypoglycemia Insulin Glargine (Lantus (Bkc)) 20 units SC QHS [facility] Last Admin: 02/21/20 21:31 Dose: 20 u Documented by: Insulin Human Lispro (Humalog Kwikpen (Bkc)) 0 unit SC ACHS & 3AM KRIST[facility]; Protocol Last Admin: 02/22/20 06:24 Dose: Not Given Documented by: Insulin Human Lispro (Humalog Kwikpen (Bkc)) 8 unit SC BREAKFAST [facility] Last Admin: 02/22/20 08:35 Dose: 8 units Documented by: Insulin Human Lispro (Humalog Kwikpen (Bkc)) 8 unit SC DINNER [facility] Last Admin: 02/21/20 18:35 Dose: 8 units Documented by: Insulin Human Lispro (Humalog Kwikpen (Bkc)) 8 unit SC LUNCH [facility] Last Admin: 02/21/20 12:47 Dose: 8 units Documented by: Ketorolac Tromethamine (Toradol) 10 mg PO Q8H PRN PRN PRN Reason: back pain Stop: 02/26/20 22:14 Lamotrigine (Lamictal) 100 mg PO BID [facility] Last Admin: 02/22/20 08:28 Dose: 100 mg Documented by: Levothyroxine Sodium (Synthroid) 75 mcg PO 0600 [facility] Last Admin: 02/22/20 06:17 Dose: 75 mcg Documented by: Nicotine (Nicoderm Cq (Pbkc)) 14 mg TRANSDERM. DAILY [facility] Last Admin: 02/22/20 08:28 Dose: 14 mg Documented by: Nutritional Formula (Lactose Free) (Glucerna Shake) 120 ml PO 4X/DAY [facility] Last Admin: 02/22/20 08:27 Dose: 120 ml Documented by: Ondansetron HCl (Zofran) 4 mg IV Q8H PRN PRN PRN Reason: NAUSEA/VOMITING Sodium Chloride () 10 - 40 ml IV UD PRN PRN Reason: SALINE FLUSH STROKE Vital Signs/Narrative: Vital Signs Temp Pulse Resp BP Pulse Ox 02/22/20 08:26 98.6 F 99 18 122/80 H 99 Medical Necessity - Tobacco Use Smoking Status: Current every day smoker Assessment/Plan All Active Problems (Last Reviewed 02/21/20 @ 00:[address] Elmer Leonardo MD) Hyperglycemia (Acute) 1. Type 1 diabetes with hyperglycemia -He takes 44 units of Lantus at night as well as Humalog during the day and a sliding scale. He states that he stopped taking his insulin 4 weeks ago around the time he had his suicidal attempt with drinking bleach. -Blood sugar now is in the mid to low 100s compared to the 800 -His home medication regimen does not show any insulin whatsoever therefore it is difficult to assess the validity of his statements about what his insulin regimen is at home we will continue with his current insulin regimen that he is on here at the hospital make adjustments as necessary 2. Bipolar disorder/suicidal ideation -Have a suicide plan, it is to drink bleach. He tried this about 4 weeks ago and then went to urgent care -He states that this is a tough time year for him as his father about 4 years ago April and his mom 2 years ago at the end of May -Continue him on Lamictal 100 mg p.o. twice daily, he states that he is to take 200 however because he has not been on Lamictal for at least 4 weeks will titrate up slowly. -Discussed the case with crisis and they will attempt to get him inpatient placement 3. Tobacco abuse -Cessation discussed -Nicotine patch in place DVT: Ambulation OBSV E&M: 57486 Subsequent observation care L2
[2020-02-22 11:12] VITALS: O2SAT 93
[2020-02-22 11:20] LABS: Bedside Glucose 147 mg/dL (70-110)
--- NOTE | 2020-02-22 14:50 | CASEMGMT ---
Social Work SW met with pt in room and assisted pt with call the Medicaid Application Hotline. Pt was able to apply for medicaid over the phone. [facility] needs the last three pay stubs to process case. Pt called employer and asked that requested info be faxed to [facility]. The worker at Medicaid states they have 30 days to process request although if company gets info to [facility] today or tomorrow, pt can call [facility] in the next few days and see if there is a determination. Pt is understanding of this. Phone call to Yann at [facility] and updated on pt application to Medicaid. Yann stating that pt is on the wait list at [facility] and that he will call [facility] and check on status and will let hospital staff know. Pt notified. KIA Baeza updated. KIA Melendez
--- NOTE | 2020-02-22 15:14 | CASEMGMT ---
Social Work Note DARA received message from Yann at [facility] stating pt is now #3 on the waitlist for [place]. DARA updated charge nurse. Crisis is working on psych placement for pt. Lulu Wilson SHIP PILOT DISPATCHER, MEDICAL VAN DRIVER
[2020-02-22 16:57] VITALS: BP 128/77; PULSE 89; RESP 18; TEMP 36.6; O2SAT 100
[2020-02-22 17:16] LABS: Bedside Glucose 100 mg/dL (70-110)
[2020-02-22] MEDS: Sertraline 50 MG Tablet PO (19:00)
[2020-02-22] MEDS: Diphenoxylate/Atrop 1 Tablet 2 TABLET PO (19:02)
[2020-02-22 20:21] LABS: Bedside Glucose 324 mg/dL (70-110)
[2020-02-22] MEDS: Insulin Lispro 100 UNIT/ML INSULN.PEN SC (20:24)
[2020-02-22 20:40] VITALS: BP 117/82; PULSE 80; RESP 16; TEMP 36.7; O2SAT 99
[2020-02-23] MEDS: Insulin Lispro 100 UNIT/ML INSULN.PEN SC ×3 (03:52→17:54)
[2020-02-23 03:56] VITALS: BP 110/71; PULSE 89; RESP 16; TEMP 36.6; O2SAT 98
[2020-02-23 04:01] LABS: Bedside Glucose 215 mg/dL (70-110)
[2020-02-23] MEDS: Levothyroxine 75 MCG Tablet PO (05:36)
[2020-02-23 07:08] VITALS: O2SAT 98
[2020-02-23 07:26] LABS: Bedside Glucose 279 mg/dL (70-110)
[2020-02-23] MEDS: Insulin Lispro 100 UNIT/ML INSULN.PEN 8 UNIT SC ×3 (08:44→17:55)
--- NOTE | 2020-02-23 10:40 | PCM.PN.HOSP ---
Patient Problems: Active and Suspected Problems (Last Reviewed 02/21/20 @ 00:[address] Elmer Leonardo MD) Hyperglycemia (Acute) Subjective: Feeling better, no issues overnight. States that his anxiety is better controlled with Zoloft which she started yesterday. Vitals/I&O's: Vital Signs Temp Pulse Resp BP Pulse Ox 98 F 89 16 110/71 98 02/23/20 03:56 02/23/20 03:56 02/23/20 03:56 02/23/20 03:56 02/23/20 07:08 Oxygen Delivery Method Room Air Weight: 109 lb 14.407 oz Body Mass Index (BMI) 17.2 Finger Stick Blood Glucose 328 Intake and Output for Last 24 Hours 02/21/20 02/22/20 02/23/20 23:59 23:59 23:59 Intake Total 6220.83 / 6220.83 1380 / 1380 Balance 6220.83 / 6220.83 1380 / 1380 General: Alert, Oriented x3, Cooperative, No apparent distress HEENT: Atraumatic, PERRLA, EOMI, Normocephalic Oral: Moist Mucosa Neck: Supple, No JVD Lungs: Clear to auscultation, Normal air movement, No rhonchi, No wheeze, No rales Cardiovascular: Regular rate, Regular Rhythm, Normal S1, Normal S2, No murmurs Abdomen: Soft, Non Tender, Non-Distended, No Hepato-splenomegaly Extremities: No edema, Capillary Refill Less than 3 Seconds Skin: No rashes, No breakdown Neurological: Neuro grossly intact, Sensory exam intact to light touch and pain Laboratory Results 02/20/20 20:33: Miscellaneous Test 02/22/20 11:13: POC Glucose 147 H 02/22/20 17:00: POC Glucose 100 02/22/20 20:13: POC Glucose 324 H 02/23/20 03:48: POC Glucose 215 H 02/23/20 07:19: POC Glucose 279 H Current Medications Acetaminophen (Tylenol) 650 mg PO Q6H PRN PRN PRN Reason: Pain Score 1-10/10 Alprazolam (Xanax) 0.5 mg PO Q8H PRN PRN PRN Reason: ANXIETY Last Admin: 02/22/20 20:33 Dose: 0.5 mg Documented by: Dextrose (D50w Syringe) 0 gm IV X1 PRN; Protocol PRN Reason: HYPOGLYCEMIA Dextrose (D50w Syringe) 0 gm IV X1 PRN; Protocol PRN Reason: Hypoglycemia Diphenoxylate HCl/Atropine (Lomotil) 2 tablet PO 4X/DAY PRN PRN PRN Reason: LOOSE STOOLS Last Admin: 02/22/20 19:02 Dose: 2 tablet Documented by: Glucagon () 1 mg IM .X1 PRN PRN Reason: Hypoglycemia Insulin Glargine (Lantus (Bkc)) 30 units SC QHS [facility] Insulin Human Lispro (Humalog Kwikpen (Bkc)) 0 unit SC ACHS & 3AM KRISTY; Protocol Last Admin: 02/23/20 08:46 Dose: 6 u Documented by: Insulin Human Lispro (Humalog Kwikpen (Bkc)) 8 unit SC BREAKFAST [facility] Last Admin: 02/23/20 08:44 Dose: 8 units Documented by: Insulin Human Lispro (Humalog Kwikpen (Bkc)) 8 unit SC DINNER [facility] Last Admin: 02/22/20 17:04 Dose: Not Given Documented by: Insulin Human Lispro (Humalog Kwikpen (Bkc)) 8 unit SC LUNCH [facility] Last Admin: 02/22/20 12:28 Dose: 8 units Documented by: Ketorolac Tromethamine (Toradol) 10 mg PO Q8H PRN PRN PRN Reason: back pain Stop: 02/26/20 22:14 Lamotrigine (Lamictal) 100 mg PO BID [facility] Last Admin: 02/22/20 20:25 Dose: 100 mg Documented by: Levothyroxine Sodium (Synthroid) 75 mcg PO 0600 [facility] Last Admin: 02/23/20 05:36 Dose: 75 mcg Documented by: Nicotine (Nicoderm Cq (Pbkc)) 21 mg TRANSDERM. DAILY [facility] Last Admin: 02/22/20 20:23 Dose: 21 mg Documented by: Nutritional Formula (Lactose Free) (Glucerna Shake) 120 ml PO 4X/DAY [facility] Last Admin: 02/23/20 00:43 Dose: Not Given Documented by: Ondansetron HCl (Zofran) 4 mg IV Q8H PRN PRN PRN Reason: NAUSEA/VOMITING Sertraline HCl (Zoloft) 50 mg PO DAILY [facility] Last Admin: 02/22/20 19:00 Dose: 50 mg Documented by: Sodium Chloride () 10 - 40 ml IV UD PRN PRN Reason: SALINE FLUSH STROKE Vital Signs/Narrative: Vital Signs Pulse Ox 02/23/20 07:08 98 Medical Necessity - Tobacco Use Smoking Status: Current every day smoker Assessment/Plan All Active Problems (Last Reviewed 02/21/20 @ 00:[address] Elmer Leonardo MD) Hyperglycemia (Acute) 1. Type 1 diabetes with hyperglycemia -He takes 44 units of Lantus at night as well as Humalog during the day and a sliding scale. He states that he stopped taking his insulin 4 weeks ago around the time he had his suicidal attempt with drinking bleach. -On admission his blood sugar was over 800 and then with diet and his insulin he was down into the low 100s however he has started ordering outside food so he ate an entire pizza on his own yesterday and now his blood sugars are in the 200-300 range -His home medication regimen does not show any insulin whatsoever therefore it is difficult to assess the validity of his statements about what his insulin regimen is at home we will continue with his current insulin regimen that he is on here at the hospital make adjustments as necessary. We will increase his Lantus from 20 to 30 units at night, and continue with his mealtime insulin sliding scale 2. Bipolar disorder/suicidal ideation -Have a suicide plan, it is to drink bleach. He tried this about 4 weeks ago and then went to urgent care -He states that this is a tough time year for him as his father about 4 years ago April and his mom 2 years ago at the end of May -Continue him on Lamictal 100 mg p.o. twice daily, he states that he is to take 200 however because he has not been on Lamictal for at least 4 weeks will titrate up slowly. -Discussed the case with crisis and they will attempt to get him inpatient placement -Started him on Zoloft 50 mg daily 3. Tobacco abuse -Cessation discussed -Nicotine patch in place DVT: Ambulation OBSV E&M: 21904 Subsequent observation care L2
[2020-02-23 11:18] VITALS: BP 98/69; PULSE 109; RESP 18; TEMP 36.7; O2SAT 99
[2020-02-23] MEDS: lamoTRIgine 100 MG Tablet PO ×2 (11:21→21:13)
[2020-02-23] MEDS: Glucerna Shake 120 ML LIQUID PO ×2 (11:21→21:12)
[2020-02-23] MEDS: Sertraline 50 MG Tablet PO (11:26)
[2020-02-23] MEDS: ALPRAZolam 0.5 MG Tablet PO ×2 (11:30→21:13)
[2020-02-23 11:40] LABS: Bedside Glucose 148 mg/dL (70-110)
--- NOTE | 2020-02-23 12:13 | CASEMGMT ---
Addendum entered by Lulu Wilson 02/23/20 16:48: SW placed another call to Crisis, pt is still on waitlist. Original Note: Social Work Note SW placed a call to Crisis and spoke with Netta. Netta states pt is still on waitlist, haven't received an update from [place]. Lulu Wilson OFFICE WORKER, SHANKER OUT
[2020-02-23 14:02] VITALS: BP 115/60; PULSE 104; RESP 16; TEMP 36.6; O2SAT 98
[2020-02-23] MEDS: Diphenoxylate/Atrop 1 Tablet 2 TABLET PO (16:38)
[2020-02-23 16:45] LABS: Bedside Glucose 179 mg/dL (70-110)
[2020-02-23 21:09] VITALS: BP 131/76; PULSE 82; RESP 16; TEMP 36.7; O2SAT 98
[2020-02-23 22:26] LABS: Bedside Glucose 109 mg/dL (70-110)
[2020-02-24 02:37] VITALS: BP 122/71; PULSE 80; RESP 16; TEMP 36.8; O2SAT 98
[2020-02-24] MEDS: Insulin Lispro 100 UNIT/ML INSULN.PEN SC ×2 (02:41→08:11)
[2020-02-24 02:51] LABS: Bedside Glucose 326 mg/dL (70-110)
[2020-02-24] MEDS: Levothyroxine 75 MCG Tablet PO (06:16)
[2020-02-24 06:50] VITALS: O2SAT 98
[2020-02-24 08:09] VITALS: BP 99/70; PULSE 100; RESP 16; TEMP 36.8; O2SAT 100
[2020-02-24] MEDS: Insulin Lispro 100 UNIT/ML INSULN.PEN 8 UNIT SC ×2 (08:11→12:58)
[2020-02-24 08:20] LABS: Bedside Glucose 187 mg/dL (70-110)
[2020-02-24] MEDS: lamoTRIgine 100 MG Tablet PO (09:32)
[2020-02-24] MEDS: Glucerna Shake 120 ML LIQUID PO (09:32)
[2020-02-24] MEDS: Sertraline 50 MG Tablet PO (09:32)
[2020-02-24] MEDS: ALPRAZolam 0.5 MG Tablet PO (09:35)
--- NOTE | 2020-02-24 09:59 | PN_ITS ---
Patient Problems: Active and Suspected Problems (Last Reviewed 02/21/20 @ 00:[address] Elmer Leonardo MD) Hyperglycemia (Acute) Subjective: Doing well, no issues overnight Vitals/I&O's: Vital Signs Temp Pulse Resp BP Pulse Ox 98.2 F 100 16 99/70 100 02/24/20 08:09 02/24/20 08:09 02/24/20 08:09 02/24/20 08:09 02/24/20 08:09 Oxygen Delivery Method Room Air Weight: 109 lb 14.407 oz Body Mass Index (BMI) 17.2 Finger Stick Blood Glucose 328 Intake and Output for Last 24 Hours 02/22/20 02/23/20 02/24/20 23:59 23:59 23:59 Intake Total 1380 / 1380 1600 / 1600 Balance 1380 / 1380 1600 / 1600 General: Alert, Oriented x3, Cooperative, No apparent distress HEENT: Atraumatic, PERRLA, EOMI, Normocephalic Oral: Moist Mucosa Neck: Supple, No JVD Lungs: Clear to auscultation, Normal air movement, No rhonchi, No wheeze, No rales Cardiovascular: Regular rate, Regular Rhythm, Normal S1, Normal S2, No murmurs Abdomen: Soft, Non Tender, Non-Distended, No Hepato-splenomegaly Extremities: No edema, Capillary Refill Less than 3 Seconds Skin: No rashes, No breakdown Neurological: Neuro grossly intact, Sensory exam intact to light touch and pain Laboratory Results 02/23/20 11:32: POC Glucose 148 H 02/23/20 16:41: POC Glucose 179 H 02/23/20 21:08: POC Glucose 109 02/24/20 02:37: POC Glucose 326 H 02/24/20 08:07: POC Glucose 187 H Current Medications Acetaminophen (Tylenol) 650 mg PO Q6H PRN PRN PRN Reason: Pain Score 1-10/10 Alprazolam (Xanax) 0.5 mg PO Q8H PRN PRN PRN Reason: ANXIETY Last Admin: 02/24/20 09:35 Dose: 0.5 mg Documented by: Dextrose (D50w Syringe) 0 gm IV X1 PRN; Protocol PRN Reason: HYPOGLYCEMIA Dextrose (D50w Syringe) 0 gm IV X1 PRN; Protocol PRN Reason: Hypoglycemia Diphenoxylate HCl/Atropine (Lomotil) 2 tablet PO 4X/DAY PRN PRN PRN Reason: LOOSE STOOLS Last Admin: 02/23/20 16:38 Dose: 2 tablet Documented by: Glucagon () 1 mg IM .X1 PRN PRN Reason: Hypoglycemia Insulin Glargine (Lantus (Bkc)) 30 units SC QHS [facility] Last Admin: 02/23/20 21:59 Dose: 30 u Documented by: Insulin Human Lispro (Humalog Kwikpen (Bkc)) 0 unit SC ACHS & 3AM [facility]; Protocol Last Admin: 02/24/20 08:11 Dose: 2 u Documented by: Insulin Human Lispro (Humalog Kwikpen (Bkc)) 8 unit SC BREAKFAST [facility] Last Admin: 02/24/20 08:11 Dose: 2 units Documented by: Insulin Human Lispro (Humalog Kwikpen (Bkc)) 8 unit SC DINNER [facility] Last Admin: 02/23/20 17:55 Dose: 8 units Documented by: Insulin Human Lispro (Humalog Kwikpen (Bkc)) 8 unit SC LUNCH [facility] Last Admin: 02/23/20 12:10 Dose: 8 units Documented by: Ketorolac Tromethamine (Toradol) 10 mg PO Q8H PRN PRN PRN Reason: back pain Stop: 02/26/20 22:14 Lamotrigine (Lamictal) 100 mg PO BID [facility] Last Admin: 02/24/20 09:32 Dose: 100 mg Documented by: Levothyroxine Sodium (Synthroid) 75 mcg PO 0600 [facility] Last Admin: 02/24/20 06:16 Dose: 75 mcg Documented by: Nicotine (Nicoderm Cq (Pbkc)) 21 mg TRANSDERM. DAILY [facility] Last Admin: 02/24/20 09:32 Dose: 21 mg Documented by: Nutritional Formula (Lactose Free) (Glucerna Shake) 120 ml PO 4X/DAY [facility] Last Admin: 02/24/20 09:32 Dose: 120 ml Documented by: Ondansetron HCl (Zofran) 4 mg IV Q8H PRN PRN PRN Reason: NAUSEA/VOMITING Sertraline HCl (Zoloft) 50 mg PO DAILY [facility] Last Admin: 02/24/20 09:32 Dose: 50 mg Documented by: Sodium Chloride () 10 - 40 ml IV UD PRN PRN Reason: SALINE FLUSH STROKE Vital Signs/Narrative: Vital Signs Temp Pulse Resp BP Pulse Ox 02/24/20 08:09 98.2 F 100 16 99/70 100 02/24/20 06:50 98 Medical Necessity - Tobacco Use Smoking Status: Current every day smoker Assessment/Plan All Active Problems (Last Reviewed 02/21/20 @ 00:[address] Elmer Leonardo MD) Hyperglycemia (Acute) 1. Type 1 diabetes with hyperglycemia -He takes 44 units of Lantus at night as well as Humalog during the day and a sliding scale. He states that he stopped taking his insulin 4 weeks ago around the time he had his suicidal attempt with drinking bleach. -On admission his blood sugar was over 800 and then with diet and his insulin he was down into the low 100s however he has started ordering outside food so he ate an entire pizza on his own yesterday and now his blood sugars are in the 200-300 range -His home medication regimen does not show any insulin whatsoever therefore it is difficult to assess the validity of his statements about what his insulin regimen is at home we will continue with his current insulin regimen that he is on here at the hospital make adjustments as necessary. We increased his Lantus from 20 to 30 units at night, and continue with his mealtime insulin sliding scale 2. Bipolar disorder/suicidal ideation -Have a suicide plan, it is to drink bleach. He tried this about 4 weeks ago and then went to urgent care -He states that this is a tough time year for him as his father about 4 years ago April and his mom 2 years ago at the end of May -Continue him on Lamictal 100 mg p.o. twice daily, he states that he is to take 200 however because he has not been on Lamictal for at least 4 weeks will titrate up slowly. -Discussed the case with crisis and they will attempt to get him inpatient placement -Started him on Zoloft 50 mg daily 3. Tobacco abuse -Cessation discussed -Nicotine patch in place DVT: Ambulation Inpatient E&M: 15272 Subs Hosp L2
--- NOTE | 2020-02-24 13:06 | DCINST_ITS ---
- Discharge Diagnoses Current Active Problems: Current Active and Chronic Problems (Last Reviewed 02/21/20 @ 00:[address] Elmer Leonardo MD) Hyperglycemia (Acute) You will use the following diet at home:: Calorie/Carbohydrate Controlled (specify 1200, 1400, etc) Your food should be the consistency of: Regular Your liquids should be the consistency of: Regular/Thin Discharge Activity: Return to Normal Activity Call your doctor if you observe: Fever of 101 or Higher, Shortness of breath, Dizziness, Fainting spells, Swelling in the ankles, Chest pain, Increased palpitations (irregular heartbeat) Allergies/Adverse Reactions: Allergies aspirin Allergy (Verified 02/20/20 20:16) Anaphylaxis cyclobenzaprine [From Flexeril] Allergy (Verified 02/20/20 20:16) Anaphylaxis morphine Allergy (Verified 02/20/20 20:16) Anaphylaxis naproxen Allergy (Verified 02/20/20 20:16) Anaphylaxis Penicillins [PCN] Allergy (Verified 02/20/20 20:16) Anaphylaxis Medications to take at Discharge Alprazolam [Xanax] 0.5 mg PO Q8H PRN PRN 02/21/20 Levothyroxine [Synthroid] 75 mcg PO 0600 02/21/20 Lurasidone HCl [Latuda] 150 mg PO DAILY 02/21/20 Insulin Glargine [Lantus SoloStar Pen] 30 units SC QHS pen 02/24/20 Insulin Lispro [Humalog KwikPen] 8 unit SUBCUT BREAKFAST insuln.pen 02/24/20 Insulin Lispro [Humalog KwikPen] 8 unit SUBCUT DINNER insuln.pen 02/24/20 Insulin Lispro [Humalog KwikPen] 8 unit SUBCUT LUNCH insuln.pen 02/24/20 Insulin Lispro [Humalog KwikPen] See Protocol SUBCUT ACHS & 3AM insuln.pen 02/24/20 Lamotrigine [Lamictal] 100 mg PO BID tab 02/24/20 Sertraline HCl [Zoloft] 50 mg PO DAILY tab 02/24/20 Primary Care Physician: Queta Woodson MD [Primary Care Provider] - Please follow up with your Primary Care Physician in: 3-5 days after discharge Test Results: Test results from this visit will be discussed in further detail at your follow- up appointment, if applicable.
--- NOTE | 2020-02-24 13:07 | DS.PCM_ITS ---
Discharge Date and Diagnosis - Problem List Patient Problems: Active and Suspected Problems (Last Reviewed 02/21/20 @ 00:[address] Elmer Leonardo MD) Hyperglycemia (Acute) Date of Admission: 02/20/20 Date of Discharge: 02/24/20 - Primary Discharge Diagnosis Acute Problems: Active Problems (Last Reviewed 02/21/20 @ 00:[address] Elmer Leonardo MD) Hyperglycemia (Acute) - Secondary Discharge Diagnosis Chronic Problems: Chronic Problems (Last Reviewed 02/21/20 @ 00:[address] Elmer Leonardo MD) Bipolar disorder (Chronic) Hypertension (Chronic) Diabetic neuropathy (Chronic) Dermatitis (Chronic) Type 1 diabetes mellitus (Chronic) Hospital Course and Treatment Consultations 02/21/20 00:59 Consult: Mental Health/Crisis Routine Reason for consult?: Suicidal ideation. Date Notified:: 02/21/20 Time Notified:: 07:52 Operations: None Procedures: None Summary of Care Provided: Per HPI: The patient is a 29 year old M with a significant history of bipolar disorder with previous suicide attempts; tobacco abuse; marijuana abuse and diabetes mellitus who presents to the emergency department with suicidal ideation. Patient has thoughts of killing himself by drinking bleach. Three months ago he drank bleach in a suicidal attempts. At the emergency department his blood glucose was found to be severely elevated at 803. He ran out of his medication 2 months ago. Medication which he ran out off includes his insulin; and Lamictal that he takes for bipolar disorder. Patient reports polyphagia, polydipsia and polyuria. Emergency department doctor discussed the case with crisis who talked to patient over the phone and are willing to help with placement after patient is medically stable. Hospital Course: 1. Type 1 diabetes with [id number] male who stopped taking his medication about 4 weeks ago presents with a blood sugar over 800. He was started on insulin and blood sugars started to become more controlled. He did somehow managed to order [employer] 1 evening and had to deliver to his room and his blood sugars were over 300. He states that he is supposed be on 44 units of Lantus at night however he is on 30 here and that is what he will be discharged on with the ability to titrate at the mental health facility. We will continue with his mealtime insulin of 8 units. 2. Bipolar disorder with suicidal ideation-he has had recent suicide attempt within the last 4 weeks. He tried to drink bleach and then went to an urgent care because he did not feel well. He stopped taking all of his psychiatric meds at that time including his Lamictal which was dosed at 200 mg p.o. twice daily. When he was admitted here he was started on 100 mg p.o. twice daily with the idea of titrating up. He is also on lurasidone which was not known at the time of his admission and therefore he was started on Zoloft to help with his depression. I will discharge him to the mental health facility with both Zoloft and lurasidone and let them decide which one they would like to continue. He states a lot of the issues starting right now are due to the fact that his mom at the end of May 2 years ago and his dad in April 4 years ago and he still has difficulty coping. 3. Tobacco abuse-I did provide him with a 21 mg nicotine patch, and it does appear necessary that he will need 1 when he is at the mental health facility. Patient Problems: Active and Suspected Problems (Last Reviewed 02/21/20 @ 00:[address] Elmer Leonardo MD) Hyperglycemia (Acute) - Physical Exam Vitals/I&O's: Vital Signs Temp Pulse Resp BP Pulse Ox 98.2 F 100 16 99/70 100 02/24/20 08:09 02/24/20 08:09 02/24/20 08:09 02/24/20 08:09 02/24/20 08:09 Oxygen Delivery Method Room Air Weight: 109 lb 14.407 oz Body Mass Index (BMI) 17.2 Finger Stick Blood Glucose 328 Intake and Output for Last 24 Hours 02/22/20 02/23/20 02/24/20 23:59 23:59 23:59 Intake Total 1380 / 1380 1600 / 1600 Balance 1380 / 1380 1600 / 1600 Laboratory Results 02/23/20 16:41: POC Glucose 179 H 02/23/20 21:08: POC Glucose 109 02/24/20 02:37: POC Glucose 326 H 02/24/20 08:07: POC Glucose 187 H Current Medications Acetaminophen (Tylenol) 650 mg PO Q6H PRN PRN PRN Reason: Pain Score 1-10/10 Alprazolam (Xanax) 0.5 mg PO Q8H PRN PRN PRN Reason: ANXIETY Last Admin: 02/24/20 09:35 Dose: 0.5 mg Documented by: Dextrose (D50w Syringe) 0 gm IV X1 PRN; Protocol PRN Reason: HYPOGLYCEMIA Dextrose (D50w Syringe) 0 gm IV X1 PRN; Protocol PRN Reason: Hypoglycemia Diphenoxylate HCl/Atropine (Lomotil) 2 tablet PO 4X/DAY PRN PRN PRN Reason: LOOSE STOOLS Last Admin: 02/23/20 16:38 Dose: 2 tablet Documented by: Glucagon () 1 mg IM .X1 PRN PRN Reason: Hypoglycemia Insulin Glargine (Lantus (Bkc)) 30 units SC QHS [facility] Last Admin: 02/23/20 21:59 Dose: 30 u Documented by: Insulin Human Lispro (Humalog Kwikpen (Bkc)) 0 unit SC ACHS & 3AM KRISTY; Protocol Last Admin: 02/24/20 12:59 Dose: Not Given Documented by: Insulin Human Lispro (Humalog Kwikpen (Bkc)) 8 unit SC BREAKFAST [facility] Last Admin: 02/24/20 08:11 Dose: 2 units Documented by: Insulin Human Lispro (Humalog Kwikpen (Bkc)) 8 unit SC DINNER [facility] Last Admin: 02/23/20 17:55 Dose: 8 units Documented by: Insulin Human Lispro (Humalog Kwikpen (Bkc)) 8 unit SC LUNCH [facility] Last Admin: 02/24/20 12:58 Dose: 8 units Documented by: Ketorolac Tromethamine (Toradol) 10 mg PO Q8H PRN PRN PRN Reason: back pain Stop: 02/26/20 22:14 Lamotrigine (Lamictal) 100 mg PO BID [facility] Last Admin: 02/24/20 09:32 Dose: 100 mg Documented by: Levothyroxine Sodium (Synthroid) 75 mcg PO 0600 [facility] Last Admin: 02/24/20 06:16 Dose: 75 mcg Documented by: Nicotine (Nicoderm Cq (Pbkc)) 21 mg TRANSDERM. DAILY [facility] Last Admin: 02/24/20 09:32 Dose: 21 mg Documented by: Nutritional Formula (Lactose Free) (Glucermt Nielsen) 120 ml PO 4X/DAY [facility] Last Admin: 02/24/20 09:32 Dose: 120 ml Documented by: Ondansetron HCl (Zofran) 4 mg IV Q8H PRN PRN PRN Reason: NAUSEA/VOMITING Sertraline HCl (Zoloft) 50 mg PO DAILY [facility] Last Admin: 02/24/20 09:32 Dose: 50 mg Documented by: Sodium Chloride () 10 - 40 ml IV UD PRN PRN Reason: SALINE FLUSH Discharge Activity: Return to Normal Activity Call your doctor if you observe: Fever of 101 or Higher, Shortness of breath, Dizziness, Fainting spells, Swelling in the ankles, Chest pain, Increased palpitations (irregular heartbeat) Home Medications: Medications to take at Discharge Alprazolam [Xanax] 0.5 mg PO Q8H PRN PRN 02/21/20 Levothyroxine [Synthroid] 75 mcg PO 0600 02/21/20 Lurasidone HCl [Latuda] 150 mg PO DAILY 02/21/20 Insulin Glargine [Lantus SoloStar Pen] 30 units SC QHS pen 02/24/20 Insulin Lispro [Humalog KwikPen] 8 unit SUBCUT BREAKFAST insuln.pen 02/24/20 Insulin Lispro [Humalog KwikPen] 8 unit SUBCUT DINNER insuln.pen 02/24/20 Insulin Lispro [Humalog KwikPen] 8 unit SUBCUT LUNCH insuln.pen 02/24/20 Insulin Lispro [Humalog KwikPen] See Protocol SUBCUT ACHS & 3AM insuln.pen 02/24/20 Lamotrigine [Lamictal] 100 mg PO BID tab 02/24/20 Sertraline HCl [Zoloft] 50 mg PO DAILY tab 02/24/20 Primary Care Physician: Queta Woodson MD [Primary Care Provider] - Please follow up with your Primary Care Physician in: 3-5 days after discharge Disposition: Psych Hospital or Unit Minutes spent on discharge:: 35 Patient Condition:: Stable Medical Necessity - Tobacco Use Smoking Status: Current every day smoker Meaningful Use Info Meaningful Use Diagnoses (Choose all that apply): None applicable OBSV E&M: 41094 Observation care discharge
[2020-02-24 13:10] LABS: Bedside Glucose 148 mg/dL (70-110)
--- NOTE | 2020-02-24 13:31 | NURSING ---
report called to bowen @ [facility]
== END 2020-02-24 13:43 ==
LOC: ED 20:51 → MS3 02-21 00:28
PROVIDERS: Admitting Provider Hospitalist; Emergency Provider Emergency Medicine; PCP Internal Medicine; Visit Provider Family Medicine
DX: E10.65 Type 1 diabetes mellitus with hyperglycemia (principal); F31.9 Bipolar disorder, unspecified; E10.40 Type 1 diabetes mellitus with diabetic neuropathy, unspecified; R45.851 Suicidal ideations; I10 Essential (primary) hypertension; F41.9 Anxiety disorder, unspecified; F17.200 Nicotine dependence, unspecified, uncomplicated; Z79.899 Other long term (current) drug therapy; Z91.19 Patient's noncompliance with other medical treatment and regimen
CPT/HCPCS: 36415; 80048; 80307; 80320; 82009; 82962; 85025; 93005; 96361; 96365; 96366; 97802; 99218; 99285; 99406; J7030; A4216; G0378; G0480

== ENCOUNTER 2020-03-31 07:41 | Emergency (ER) | payer SELFPAY ==
[2020-02-21 16:03] VITALS: BMI 17.2
[2020-03-31 07:42] VITALS: BP 136/95; PULSE 122; RESP 18; TEMP 35.5; O2SAT 100; BMI 21.2
[2020-03-31 08:01] LABS: Bedside Glucose 341 mg/dL (70-110)
--- NOTE | 2020-03-31 08:09 | ED.VISSUMM ---
- ER Visit Summary Date of Service: 03/31/20 Chief Complaint: Hyperglycemia History of Present Illness: The patient is a 29 M who is a type I diabetic. He has high blood sugars because he is out of his insulin for 3 days. He takes Humalog sliding scale and Lantus 30 units daily. He lost his Medicaid coverage because he makes too much money on his new job. He is eligible for insurance enrollment in May. He has no other associated symptoms except he does complain of a rash to his abdomen. This is red and itchy. He is not sure what set this off. Physical Examination: Afebrile and vital signs unremarkable. He was triaged at a heart rate of 122. He has a normal rate on my exam. He has an erythematous blanching rash to his abdomen. No red flag features. Test Results: Glucose at the bedside was over 300. Emergency Department Course and Treatment: Patient will be treated with IV fluids. We will check a BMP. Clinically, I do not suspect that he is in DKA. Bigger issue is getting coverage for his insulin. We will recheck his labs. Will consult social work upon their arrival. Treated his nonspecific rash that appears to be a dermatitis with Benadryl. Patient's labs are reassuring. I do not suspect DKA or other complications of hyperglycemia. I attempted to contact social work, and they contacted [facility] pharmacy. After speaking with the patient, he cannot afford his Humalog. We found this for $37 at [facility] through [facility]. Lantus was over $400, and he cannot afford this. We were able to switch him to insulin N for $96. He will take 24 units daily, 12 in the morning and 12 in the evening, and equivalent dose to his 30 units of Lantus. Treatment Plan: As above Disposition: Discharge Impression: 1. Hyperglycemia 2. History of type 1 diabetes 3. Rash This note was generated with [employer] dictation software. It may contain incorrect words, spelling, and punctuation that were not noted in review of the chart prior to signing ED Disposition - Plan for ED Patient: Referrals: Queta Woodson MD [Primary Care Provider] -
[2020-03-31] MEDS: DiphenhydrAMINE 25 MG Capsule PO (08:10)
[2020-03-31] MEDS: 0.9% Normal Saline 1,000 ML 999 ML IV ×2 (08:10→09:10)
[2020-03-31 08:33] LABS: Anion Gap 8 (5-15); BUN 14 mg/dL (7-18); BUN/Creat Ratio 21.3 RATIO (10-20); Calcium,Total 8.7 mg/dL (8.5-10.1); Chloride 99 mmol/L (98-107); Creatinine, Serum 0.66 mg/dL (0.70-1.30); EST Glomerular Filtration Rate 152 mL/min (>60); Est Glom Filt Rate - Afr Amer 184 mL/min (>60); Estimated Creatinine Clearance 145.39 ml/min; Glucose 365 mg/dL (74-106); Potassium 4.2 mmol/L (3.5-5.1); Sodium Level 133 mmol/L (136-145)
[2020-03-31 10:56] LABS: Bedside Glucose 292 mg/dL (70-110)
[2020-03-31 11:07] VITALS: BP 134/78; PULSE 87; RESP 16; O2SAT 99
--- NOTE | 2020-03-31 12:00 | ED.DEP ---
ED Disposition - Plan for ED Patient: Instructions: ED Diabetic Hyperglycemia Prescriptions: Insulin NPH Human Isophane [Humulin N] 12 unit SQ BID #1 vial Prescription Printed Referrals: Queta Woodson MD [Primary Care Provider] -
== END 2020-03-31 12:12 | disposition home or self-care (01) ==
LOC: ED 08:10
PROVIDERS: Emergency Provider Emergency Medicine; PCP Internal Medicine
DX: E10.65 Type 1 diabetes mellitus with hyperglycemia (principal); R21 Rash and other nonspecific skin eruption; I10 Essential (primary) hypertension; F31.9 Bipolar disorder, unspecified; Z79.4 Long term (current) use of insulin; Z72.0 Tobacco use
CPT/HCPCS: 80048; 82962; 99282

== ENCOUNTER 2020-04-13 08:07 | Emergency (ER) | payer MEDICAID, SELFPAY ==
[2020-04-13] VITALS (11 sets, daily range): BP systolic 110–112; BP diastolic 67–81; PULSE 79–119; RESP 14–16; TEMP 36.6–37.2; O2SAT 95–100; BMI 19.1
--- NOTE | 2020-04-13 08:31 | ED.VIS.GEN ---
History of Present Illness Chief Complaint: Suicidal Informant: Patient Narrative: 29-year-old male presenting with suicidal ideation. He states he was going to drink bleach and antifreeze but his good friend stopped him. He states he was here recently for similar symptoms and similar plan. He went to [facility]. He thought he was okay when he left but he has slowly progressed into feeling suicidal again. He states he has previous attempts of cutting his wrists, hanging himself, drinking bleach in the past. He states that his stressors are the loss of his mom last year and the loss of his father in December. He states that he has a counselor that he speaks to on an outpatient basis but his visits have been canceled or rescheduled. He states he does not have any family to provide support. He denies any drugs, alcohol and attempt to overdose today. He states he did not drink any bleach or antifreeze either. - Past Medical History (1) Bipolar disorder Status: Chronic (2) Hypertension Status: Chronic (3) Type 1 diabetes mellitus Status: Chronic Past Medical History - Allergies and Home Meds Allergies/Adverse Reactions: Allergies aspirin Allergy (Verified 04/13/20 08:08) Anaphylaxis cyclobenzaprine [From Flexeril] Allergy (Verified 04/13/20 08:08) Anaphylaxis morphine Allergy (Verified 04/13/20 08:08) Anaphylaxis naproxen Allergy (Verified 04/13/20 08:08) Anaphylaxis Penicillins [PCN] Allergy (Verified 04/13/20 08:08) Anaphylaxis Primary Care Physician: Queta Woodson MD [Primary Care Provider] - Past Medical History: - - Reviewed in problem list Surgical History: noncontributory, - - Right knee surgery Lives: Alone Smoking Status: Current every day smoker Alcohol: None Drugs: None Review of Systems General: Denies: Chills, Fever, Sweats Eyes: Denies: Visual changes - bilaterally, Diplopia ENT: Denies: Rhinorrhea, Sore throat Cardiovascular: Denies: Chest pain, Palpitations Respiratory: Denies: Dyspnea, Cough, Dyspnea on exertion Gastrointestinal: Denies: Abdominal pain, Nausea, Vomiting, Diarrhea, Melena, Hematochezia Genitourinary: Denies: Dysuria, Hematuria, Frequency Musculoskeletal: Denies: Back pain, Extremity Pain Skin: Denies: Rash, Wounds Neurological: Denies: Headache, Weakness, Numbness Psych: Reports: Depression, Suicidal thoughts, Suicidal ideations Endocrine: Reports: -, -. Denies: Polyuria, Polydipsia Physical Exam Vital Signs/Narrative: Vital Signs Temp Pulse Resp BP Pulse Ox 04/13/20 08:08 97.8 F 119 H 15 110/70 100 Inital Vital Signs reviewed: Yes General: Well nourished, Well developed, No Acute Distress Head: Normocephalic, Atraumatic Eyes: Perrl, EOMI ENT: Moist mucous membranes, No rhinorrhea Neck: Supple, Nontender Cardiovascular: Regular rate, Regular rhythm, No murmurs Respiratory: No distress, CTA bilaterally, Chest nontender Abdomen: Soft, Nontender, Nondistended, Normal bowel sounds Back: Nontender, Normal Inspection Extremities: Nontender, No edema Skin: Normal color, No rash Neurological: Alert, Oriented x3, Cranial nerves II-XII grossly intact, Normal Strength, Normal Sensation Psychological: - - Admits to suicidal ideation with a plan of drinking bleach and antifreeze Diagnostic/Tx/Re-eval Laboratory Data 04/13/20 04/13/20 04/13/20 08:25 08:25 08:25 WBC 6.7 RBC 5.05 Hgb 15.6 Hct 46.2 MCV 91.5 MCH 30.9 MCHC 33.8 RDW Std Deviation 40.8 RDW Coeff of Haris 12.3 Plt Count 249 MPV 9.3 Immature Gran % (Auto) 0.400 Neut % (Auto) 64.4 Lymph % (Auto) 25.4 Mcleod % (Auto) 6.7 Eos % (Auto) 2.4 Baso % (Auto) 0.7 Absolute Neuts (auto) 4.3 Absolute Lymphs (auto) 1.70 Nucleated RBC % 0 Sodium 131 L Potassium 4.5 Chloride 96 L Carbon Dioxide 22.0 Anion Gap 13 BUN 17 Creatinine 0.85 Estim Creat Clear Calc 101.02 Est GFR (MDRD) Af Amer 137 Est GFR (MDRD) Non-Af 113 BUN/Creatinine Ratio 20.0 Glucose 479 H* Calcium 8.9 Urine Color Urine Clarity Urine pH Ur Specific [place] Urine Protein Urine Glucose (UA) Urine Ketones Urine Occult Blood Urine Nitrite Urine Bilirubin Urine Urobilinogen Ur Leukocyte Esterase Urine RBC Urine WBC Ur Squamous Epith Cells Urine Bacteria Urine Mucus Salicylates Urine Opiates Screen Urine Methadone Screen Acetaminophen Ur Barbiturates Screen Ur Phencyclidine Scrn Ur Amphetamines Screen U Methamphetamin-MDMA U Benzodiazepines Scrn Urine Cocaine Screen U Cannabinoids Screen Ur Drug Screen Comment Ethyl Alcohol 8.0 POC Glucose 04/13/20 04/13/20 04/13/20 08:25 08:25 08:25 WBC RBC Hgb Hct MCV MCH MCHC RDW Std Deviation RDW Coeff of Haris Plt Count MPV Immature Gran % (Auto) Neut % (Auto) Lymph % (Auto) Mcleod % (Auto) Eos % (Auto) Baso % (Auto) Absolute Neuts (auto) Absolute Lymphs (auto) Nucleated RBC % Sodium Potassium Chloride Carbon Dioxide Anion Gap BUN Creatinine Estim Creat Clear Calc Est GFR (MDRD) Af Amer Est GFR (MDRD) Non-Af BUN/Creatinine Ratio Glucose Calcium Urine Color Yellow Urine Clarity Clear Urine pH 6.0 Ur Specific [place] 1.020 Urine Protein 30 H Urine Glucose (UA) 1000 H Urine Ketones 150 H Urine Occult Blood Negative Urine Nitrite Negative Urine Bilirubin Negative Urine Urobilinogen Normal Ur Leukocyte Esterase Negative Urine RBC 0 SEEN Urine WBC 0 SEEN Ur Squamous Epith Cells 0 SEEN Urine Bacteria 0 SEEN Urine Mucus 0 SEEN Salicylates < 1.7 L Urine Opiates Screen NEGATIVE Urine Methadone Screen NEGATIVE Acetaminophen < 2.0 L Ur Barbiturates Screen NEGATIVE Ur Phencyclidine Scrn NEGATIVE Ur Amphetamines Screen NEGATIVE U Methamphetamin-MDMA NEGATIVE U Benzodiazepines Scrn NEGATIVE Urine Cocaine Screen NEGATIVE U Cannabinoids Screen POSITIVE H Ur Drug Screen Comment Ethyl Alcohol POC Glucose 04/13/20 04/13/20 11:54 13:32 WBC RBC Hgb Hct MCV MCH MCHC RDW Std Deviation RDW Coeff of Haris Plt Count MPV Immature Gran % (Auto) Neut % (Auto) Lymph % (Auto) Mcleod % (Auto) Eos % (Auto) Baso % (Auto) Absolute Neuts (auto) Absolute Lymphs (auto) Nucleated RBC % Sodium Potassium Chloride Carbon Dioxide Anion Gap BUN Creatinine Estim Creat Clear Calc Est GFR (MDRD) Af Amer Est GFR (MDRD) Non-Af BUN/Creatinine Ratio Glucose Calcium Urine Color Urine Clarity Urine pH Ur Specific [place] Urine Protein Urine Glucose (UA) Urine Ketones Urine Occult Blood Urine Nitrite Urine Bilirubin Urine Urobilinogen Ur Leukocyte Esterase Urine RBC Urine WBC Ur Squamous Epith Cells Urine Bacteria Urine Mucus Salicylates Urine Opiates Screen Urine Methadone Screen Acetaminophen Ur Barbiturates Screen Ur Phencyclidine Scrn Ur Amphetamines Screen U Methamphetamin-MDMA U Benzodiazepines Scrn Urine Cocaine Screen U Cannabinoids Screen Ur Drug Screen Comment Ethyl Alcohol POC Glucose 367 H 318 H - Medical Decision Making Patient presents with suicidal ideation and threatens to drink bleach or antifreeze. Later he stated that he would hang himself. Believe the has substantial risk as he has had attempted all of these in the past. Patient does have diabetes and his blood sugar was high however he does not have an anion gap. He was given a cutaneous insulin. Otherwise he is medically clear. Patient was discussed with crisis management and they agreed that the patient need to be inpatient. Patient is currently awaiting a facility. He will be transported when able. Impression: 1. Suicidal ideation 2. Hyperglycemia ED Disposition - Plan for ED Patient: Referrals: Queta Woodson MD [Primary Care Provider] -
[2020-04-13 09:15] LABS: Bacteria 0 SEEN /hpf (None Seen); Mucous, Urine 0 SEEN /hpf (<or=2+); Red Blood Cells-Urine 0 SEEN /hpf (0-5); Squamous Epithelial Cells - UA 0 SEEN /hpf (0-5); White Blood Cells 0 SEEN /hpf (0-5)
[2020-04-13 09:18] LABS: Absolute Neutrophil Count 4.3 X10^3/uL (2.0-7.7); Basophil# 0.05 X10^3/uL; Basophil% 0.7 % (0-1); Eosinophil# 0.16 X10^3/uL; Eosinophils% 2.4 % (0-5); Hematocrit 46.2 % (40-54); Hemoglobin 15.6 g/dL (13.0-16.5); Lymphocyte % 25.4 % (19-41); Mean Corp Hgb Conc 33.8 g/dL (32-36); Mean Corpuscular Hgb 30.9 pg (27.0-32.0); Mean Corpuscular Volume 91.5 fL (80-94); Mean Platelet Vol. 9.3 fl (6.2-12.0); Monocyte# 0.45 X10^3/uL; Monocyte% 6.7 % (0-10); NRBC Flagged by Analyzer 0 % (0-5); Neutrophil # 4.31 X10^3/uL (2.7-7.7); Neutrophil % 64.4 % (47-70); Platelet Count 249 K/mm3 (150-450); RBC Distribution Width CV 12.3 % (11.6-14.6); RBC Distribution Width SD 40.8 fl (35.1-43.9); Red Blood Count 5.05 M/mm3 (4.6-6.2); White Blood Count 6.7 K/mm3 (4.4-11.0)
[2020-04-13 09:20] LABS: Color, Urine Yellow (Yellow); Glucose, Dipstick 1000 mg/dl (Normal); Leukocyte Esterase-Dipstick Negative /ul (Negative); Nitrite-Dipstick Negative (Negative); Occult Blood-Urine Negative /ul (Negative); Protein-Dipstick 30 mg/dl (Negative); Urine Bilirubin Dipstick Negative (Negative); Urine Clarity Clear (Clear); Urine Urobilinogen Normal (Normal)
[2020-04-13 09:23] LABS: Ketone-Dipstick 150 mg/dl (Negative)
[2020-04-13 09:39] LABS: Amphetamine Urine VISTA NEGATIVE (<1000 ng/mL); Barbiturate Urine VISTA NEGATIVE (< 200 ng/mL); Benzodiazepine Urine VISTA NEGATIVE (< 200 ng/mL); Cocaine Urine VISTA NEGATIVE (< 300 ng/mL); Ecstacy Urine VISTA NEGATIVE (< 500 ng/mL); Methadone Urine VISTA NEGATIVE (< 300 ng/mL); PCP Urine VISTA NEGATIVE (< 25 ng/mL); THC Urine VISTA POSITIVE (< 50 ng/mL); Vista UDS pH Range 5
[2020-04-13 09:43] LABS: Anion Gap 13 (5-15); BUN 17 mg/dL (7-18); Calcium,Total 8.9 mg/dL (8.5-10.1); Chloride 96 mmol/L (98-107); Creatinine, Serum 0.85 mg/dL (0.70-1.30); EST Glomerular Filtration Rate 113 mL/min (>60); Est Glom Filt Rate - Afr Amer 137 mL/min (>60); Estimated Creatinine Clearance 101.02 ml/min; Glucose 479 mg/dL (74-106); Potassium 4.5 mmol/L (3.5-5.1); Sodium Level 131 mmol/L (136-145)
--- NOTE | 2020-04-13 09:47 | ED.RN ---
DR WHITE NOTIFIED OF GLUCOSE LEVEL PER LAB. NNO AT THIS TIME
[2020-04-13 09:56] LABS: Acetaminophen (Tylenol) Level < 2.0 ug/mL (10.0-30.0); Salicylate < 1.7 mg/dL (2.8-20.0)
--- NOTE | 2020-04-13 10:55 | CM.ED ---
Social Work Patient self-pay. Consult to be placed to crisis for inpatient psychiatric placement. Medical team updated. Jose Elias Blackburn MSW, DELMAS
[2020-04-13] MEDS: Insulin Lispro 100 UNIT/ML INSULN.PEN 12 UNIT SC ×2 (11:09→18:22)
--- NOTE | 2020-04-13 11:57 | ED.RN ---
JOSH WITH CRISIS STATED SHE DID NOT RECEIVE NOTICE THAT I HAD CALLED; SENDING INFORMATION OVER AT THIS TIME SO PT CAN BE EVALUATED.
[2020-04-13 12:00] LABS: Bedside Glucose 367 mg/dL (70-110)
[2020-04-13 13:40] LABS: Bedside Glucose 318 mg/dL (70-110)
--- NOTE | 2020-04-13 13:47 | ED.RN ---
dr huffman aware of BGL
--- NOTE | 2020-04-13 14:46 | CM.ED ---
Social Work Telephone call to Atif, Althea. Patient has been assessed and plan is for placement to [facility]. Updated medical team. Jose Elias Blackburn DIAMOND POLISHER, DELMAS
--- NOTE | 2020-04-13 16:05 | CM.ED ---
Social Work Telephone call from Liz Srivastava. Patient has been accepted at [facility]. [facility] reports to have set up transportation for 18:30 today. Liz reports that there is currently funding to assist with coverage of patient inpatient psychiatric placement as patient does not have insurance. Liz unable to provide admitting information currently and will call back when admitting information is obtained. Medical team updated. Jose Elias VILLAGOMEZ, JOSE GUADALUPE
--- NOTE | 2020-04-13 17:29 | CM.ED ---
Social Work Telephone call from [facility] Liz. Patient has been accepted [facility] by Dr. Koo to the [place] [facility] room 317B. Medical team and patient updated on above. Jose Elias VILLAGOMEZ, JOSE GUADALUPE
[2020-04-13 17:46] LABS: Bedside Glucose 329 mg/dL (70-110)
== END 2020-04-13 19:29 ==
PROVIDERS: Emergency Provider Student in an Organized Health Care Education/Training Program; PCP Internal Medicine
DX: R45.851 Suicidal ideations (principal); F31.9 Bipolar disorder, unspecified; I10 Essential (primary) hypertension; E10.65 Type 1 diabetes mellitus with hyperglycemia; F17.200 Nicotine dependence, unspecified, uncomplicated; Z91.5 Personal history of self-harm; Z79.4 Long term (current) use of insulin
CPT/HCPCS: 80048; 80307; 80320; 80329; 81001; 82962; 85025; 99282; G0480

== ENCOUNTER 2022-05-24 08:16 | Emergency (ER) | payer MEDICAID, SELFPAY ==
--- NOTE | 2022-05-24 08:31 | ED.RN ---
Patient repeatedly states that he just wants a change of clothing and to leave. This nurse informed the patient of plan of care and what to expect during his time in the ED. Patient refused care. This nurse informed the patient that we only have paper scrub pants and that we are concerned for him. This nurse explained the reason the [facility] staff called EMS. Patient again refused any care by ER staff including vital signs and a blood sugar. This nurse informed the patient that she can not keep him here and he is free to leave if he does not want to be assessed or provided care by the ED. Patient then left his room. Patient then returned to his room. This nurse once again presented the plan of care while he is in the ER and patient continues to refuse care. Dr. Chang assessed the patient and took the patient's blood sugar due to the patient refusing to allow this nurse to do it. Per MD patient is A&O and able to leave if he wants. Patient again requesting a change of clothing. This nurse informs him once again that we only have paper scrub pants. Patient refusing those and decided to stay.
[2022-05-24 09:09] VITALS: TEMP 36.1; BMI 27.4
[2022-05-24 09:12] LABS: Absolute Lymphocyte Count 2.17 X10^3/uL (0.83-4.51); Absolute Neutrophil Count 5.5 X10^3/uL (2.0-7.7); Basophil# 0.06 X10^3/uL; Basophil% 0.7 % (0-1); Eosinophil# 0.15 X10^3/uL; Eosinophils% 1.7 % (0-5); Hematocrit 41.8 % (40-54); Hemoglobin 13.8 g/dL (13.0-16.5); Lymphocyte # 2.17 X10^3/ul (0.83-4.51); Mean Corpuscular Hgb 30.3 pg (27.0-32.0); Mean Corpuscular Volume 91.7 fL (80-94); Mean Platelet Vol. 9.3 fl (6.2-12.0); Monocyte# 0.78 X10^3/uL; NRBC Flagged by Analyzer 0 % (0-5); Neutrophil % 63.3 % (47-70); Platelet Count 288 K/mm3 (150-450); RBC Distribution Width CV 12.9 % (11.6-14.6); RBC Distribution Width SD 43.7 fl (35.1-43.9); Red Blood Count 4.56 M/mm3 (4.6-6.2); White Blood Count 8.7 K/mm3 (4.4-11.0)
[2022-05-24 09:28] LABS: Anion Gap 5 (5-15); BUN 7 mg/dL (7-18); BUN/Creat Ratio 8.1 RATIO (10-20); Calcium,Total 9.6 mg/dL (8.5-10.1); Chloride 99 mmol/L (98-107); Creatinine, Serum 0.87 mg/dL (0.70-1.30); EST Glomerular Filtration Rate 109 mL/min (>60); Est Glom Filt Rate - Afr Amer 132 mL/min (>60); Estimated Creatinine Clearance 103.01 ml/min; Glucose 492 mg/dL (74-106); Magnesium 2.1 mg/dL (1.6-2.6); Phosphorus 5.1 mg/dL (2.5-4.9); Potassium 3.7 mmol/L (3.5-5.1); Sodium Level 135 mmol/L (136-145)
--- NOTE | 2022-05-24 09:29 | ED.RN ---
attempted fluids. Pt refused
[2022-05-24 09:31] VITALS: RESP 16
--- NOTE | 2022-05-24 10:09 | ED.RN ---
PT REFUSING IV FLUIDS AND FURTHER CARE AT THIS TIME. PT RESTING COMFORTABLY IN BED. PT AWAITING MD JESUS-KALEY.
--- NOTE | 2022-05-24 11:12 | EDS_ITS ---
HPI History of Present Illness Chief Complaint: Complaint Informant: patient Narrative Narrative: Patient is a 32-year-old male with history of bipolar disorder, poorly controlled diabetes mellitus type 1 and medication noncompliance presenting with an episode of urinary continence. Apparently patient is staying at the [facility], [place] [id number]. He had an episode of incontinence overnight and they recommend he come into the ER to be evaluated. Patient states he was recently admitted for DKA. He states he does not want to be here and he just wants a clean pair of pants. He has some chronic low back pain which is unchanged. He denies any fever, chills, night sweats, saddle anesthesia or any other complaints. He is intentionally not taking his insulin because I do not want to. He states he is not trying to kill himself or harm himself. Denies any HI or SI. Initially does not want to be treated and tries to walk out of the ER but then changes his mind and comes back to be evaluated further. [facility] Medical History Anxiety and depression Bipolar 1 disorder Chronic leg pain Diabetes Frequent headaches Hypertension Home Medications levothyroxine 75 mcg tablet 100 mcg PO 0600 thyroid 02/21/20 [History Last Taken 03/30/20] insulin lispro 100 unit/mL subcutaneous pen See Protocol subcut ACHS & 3AM 02/24/20 [Rx Last Taken Unknown] sertraline 50 mg tablet 50 mg PO DAILY 02/24/20 [Rx Last Taken Unknown] lamotrigine 100 mg tablet 200 mg PO BID 03/31/20 [History Last Taken 03/30/20] insulin glargine 100 unit/mL subcutaneous solution 30 unit SQ QHS 04/13/20 [History Last Taken Unknown] risperidone 1 mg tablet 1 mg PO DAILY 04/13/20 [History Last Taken Unknown] trazodone 50 mg tablet 50 mg PO QHS PRN PRN insomnia\ 04/13/20 [History Last Taken Unknown] Allergy/AdvReac Type Severity Reaction Status Date / Time aspirin Allergy Anaphylaxis Verified 04/13/20 08:08 cyclobenzaprine Allergy Anaphylaxis Verified 04/13/20 08:08 [From Flexeril] morphine Allergy Anaphylaxis Verified 04/13/20 08:08 naproxen Allergy Anaphylaxis Verified 04/13/20 08:08 Penicillins [PCN] Allergy Anaphylaxis Verified 04/13/20 08:08 Family History Mother Diabetes Hypertension Surgical History left leg surgery Social History Smoking Status: Current every day smoker tobacco type: cigarettes Tobacco: How many years used: 4 alcohol intake: never substance use type: does not use what type of physical activity do you participate in: walking ROS ROS ED Constitutional Constitutional ED: Denies chills or fever(s) Eyes Eyes: Denies change in vision ENT ENT ED: Denies rhinorrhea or sore throat Cardiovascular Cardiovascular: Denies chest pain Respiratory/Chest Respiratory/Chest: Denies cough Gastrointestinal Gastrointestinal: Denies abdominal pain, nausea or vomiting Genitourinary Genitourinary ED: Reports urinary frequency and other Details: Urinary incontinence Musculoskeletal Musculoskeletal: Reports back pain; Denies myalgias Integumentary Denies rash Neurologic Neurologic: Denies headache(s), paresthesias or weakness Psychiatric Psychiatric: Denies anxiety, suicidal ideation or suicidal thoughts EXAM Physical Exam Const Vital Signs: 05/24/22 09:31 05/24/22 09:09 Temperature 96.9 F L Temperature Source Temporal Respiratory Rate 16 Positive well nourished and well developed General Appearance ED: well developed and NAD HEENT Reports moist mucous membranes Eyes PERRL and EOMs intact bilaterally Neck supple Neck Narrative: No meningeal signs Chest Wall inspection of chest normal and palpation of chest normal Resp normal respiratory effort and clear to auscultation bilaterally Cardio regular rate, regular rhythm and no murmurs GI normal to inspection, nondistended, normoactive bowel sounds, non-tender and non-distended Back/Spine no CVA tenderness Thoracic Spine / Upper Back: Negative for thoracic spinal tenderness or paraspinal muscle tenderness Lumbar Spine / Lower Back: Negative for lumbar spinal tenderness Extremity normal to inspection Neuro oriented x3 and no sensory deficits noted Sensorium / Orientation: alert Motor Exam: strength 5/5 throughout; Negative for general weakness Psych Psych Narrative: Patient is argumentative Skin no rashes or lesions noted and no wounds MDM MDM MDM Narrative Medical decision making narrative: Patient is evaluated for episode of urinary incontinence while at the [facility], [place] [id number] in addition he has been noncompliant with his diabetic medications. Initially he is quite argumentative and is refusing any care to state he did not want to come to the emergency room and only wants a new pair of pants.Patient is ambulatory in the ER. Eventually consents to a fingerstick blood glucose and basic labs. He is refusing IV fluids or Insulin. Patient is hyperglycemic however he has a normal anion gap. While he is argumentative and refusing care he does appear to have capacity to make these decisions. He is able to repeat back to me what he is refusing and why he is refusing it. He denies any HI or SI and he states he is not trying to harm himself by refusing insulin or fluids he just does not want them. Patient is counseled that if he continues on his course he likely will go into DKA and could go into diabetic coma and . He does verbalize agreement understanding of this. He still refuses further intervention. At this time patient does have capacity to make this decision and will be discharged home. Counseled importance of drinking lots of fluids and taking his insulin. Patient refuses to give a urine sample in the emergency room he also refuses an EKG. Lab Data Attestation: I reviewed the patient's lab results. Labs: Laboratory Results - last 24 hr 05/24/22 05/24/22 08:50 08:50 WBC 8.7 RBC 4.56 L Hgb 13.8 Hct 41.8 MCV 91.7 MCH 30.3 MCHC 33.0 RDW Std Deviation 43.7 RDW Coeff of Haris 12.9 Plt Count 288 MPV 9.3 Immature Gran % (Auto) 0.300 Neut % (Auto) 63.3 Lymph % (Auto) 25.0 [place] % (Auto) 9.0 Eos % (Auto) 1.7 Baso % (Auto) 0.7 Absolute Neuts (auto) 5.5 Absolute Lymphs (auto) 2.17 Nucleated RBC % 0 Sodium 135 L Potassium 3.7 Chloride 99 Carbon Dioxide 31.0 Anion Gap 5 BUN 7 Creatinine 0.87 Estim Creat Clear Calc 103.01 Est GFR (MDRD) Af Amer 132 Est GFR (MDRD) Non-Af 109 BUN/Creatinine Ratio 8.1 L Glucose 492 H* Calcium 9.6 Phosphorus 5.1 H Magnesium 2.1 Discharge Plan Triage Chief Complaint: Complaint ED Provider: Esperanza Chang Dx/Rx/DC Orders Clinical Impression: Hyperglycemia, Type 1 diabetes mellitus, Noncompliance with medication regimen Instructions: ED Diabetic Hyperglycemia Prescriptions: No Action levothyroxine 75 MCG tablet 100 mcg PO 0600 sertraline 50 MG tablet 50 mg PO DAILY 0RF insulin lispro 100 UNIT/ML insulin pen See Protocol subcut ACHS & 3AM 0RF Protocol: 4. Sliding Scale Insulin High-Med Dosing Condition: 150-199 mg/dl = 2 units Condition: 200-259 mg/dl = 4 units Condition: 260-324 mg/dl = 6 units Condition: 325-374 mg/dl = 8 units Condition: 375-409 mg/dl = 10 units Condition: 410-449 mg/dl = 11 units Condition: Greater than 449 call physician Protocol Text: - Use for Total Daily Dose of Insulin 56-80 units - Patient who are insulin resistant or septic HIGH MEDIUM DOSING ALGORITHM lamotrigine 100 MG tablet 200 mg PO BID insulin glargine 100 UNIT/ML solution 30 unit SQ QHS trazodone 50 MG tablet 50 mg PO QHS PRN PRN (Reason: insomnia\) risperidone 1 MG tablet 1 mg PO DAILY Primary Care Provider: Queta Woodson Referrals: Queta Woodson MD [Primary Care Provider] - Activity Restrictions/Additional Instructions: Your blood sugar is elevated today. Please make sure you are taking her insulin at home to do not go into DKA. If you change your mind and would like further treatment including but not limited to IV fluids and insulin please return to the emergency room. Disposition Disposition: Home, Self Care
[2022-05-24 15:46] LABS: Bedside Glucose 471 mg/dL (74-106)
== END 2022-05-24 12:57 | disposition home or self-care (01) ==
PROVIDERS: Emergency Provider Emergency Medicine; PCP Internal Medicine; Visit Provider Emergency Medicine
DX: E10.65 Type 1 diabetes mellitus with hyperglycemia (principal); F31.9 Bipolar disorder, unspecified; I10 Essential (primary) hypertension; F17.210 Nicotine dependence, cigarettes, uncomplicated; Z91.14 Patient's other noncompliance with medication regimen; R35.0 Frequency of micturition; R32 Unspecified urinary incontinence
CPT/HCPCS: 80048; 82962; 83735; 84100; 85025; 99284

== ENCOUNTER 2022-05-29 16:43 | Emergency (ER) | payer MEDICAID, SELFPAY ==
[2022-05-29 16:45] VITALS: BP 109/85; PULSE 105; RESP 16; TEMP 36.3; O2SAT 99; BMI 21.4
--- NOTE | 2022-05-29 16:58 | ED.RN ---
pt states he is currently homeless and has no medications. unknown sugar level. dr informed. cait dawn,rn [id number]
[2022-05-29 17:20] LABS: Bedside Glucose > 500 mg/dL (74-106)
--- NOTE | 2022-05-29 17:49 | EDS_ITS ---
HPI History of Present Illness Chief Complaint: Wound Check Informant: patient Narrative Narrative: Patient came in to evaluate his postoperative wound because he has not been able to get a ride up to [place]. Patient has a history of diabetes. He had infected left foot second toe. This was removed at surgery at [facility] about 3 weeks ago. He does not know the name of the surgeon. He was there for a day or 2 but he is not exactly sure how long. When he left, he did not have any insulin. He used to get his insulin through the internal medicine center there but has not been back because he has been dealing with legal issues down in this area. He normally takes Lantus 32 units at night and Humalog 12 units 3 times a day. He does have polyuria and polydipsia but denies blurry vision. He denies fevers or chills. There has been no change in the wound. He states he has had that reddish color ever since surgery and it has not worsened or gotten better. PFSH [facility] Medical History Anxiety and depression Bipolar 1 disorder Chronic leg pain Diabetes Frequent headaches Hypertension Home Medications insulin glargine 100 unit/mL subcutaneous solution (Lantus U-100 Insulin) 32 unit (0.32 mL) subcut QPM #10 mL 05/29/22 [Rx Last Taken Unknown] insulin lispro 100 unit/mL subcutaneous solution (Humalog U-100 Insulin) 12 unit (0.12 mL) subcut TID #10 mL 05/29/22 [Rx Last Taken Unknown] Allergy/AdvReac Type Severity Reaction Status Date / Time aspirin Allergy Anaphylaxis Verified 05/29/22 16:45 cyclobenzaprine Allergy Anaphylaxis Verified 05/29/22 16:45 [From Flexeril] morphine Allergy Anaphylaxis Verified 05/29/22 16:45 naproxen Allergy Anaphylaxis Verified 05/29/22 16:45 Penicillins [PCN] Allergy Anaphylaxis Verified 05/29/22 16:45 Family History Mother Diabetes Hypertension Surgical History left leg surgery Social History Smoking Status: Current every day smoker tobacco type: cigarettes Tobacco: How many years used: 4 alcohol intake: never substance use type: does not use what type of physical activity do you participate in: walking ROS ROS ED Constitutional Constitutional ED: Denies chills, fever(s), subjective or sweats Eyes Eyes: Reports other Details: Denies blurry vision despite high sugars ENT ENT ED: Denies rhinorrhea Cardiovascular Cardiovascular: Denies chest pain or palpitations Respiratory/Chest Respiratory/Chest: Denies cough or dyspnea Gastrointestinal Gastrointestinal: Denies abdominal pain, diarrhea, nausea or vomiting Genitourinary Genitourinary ED: Reports urinary frequency; Denies hematuria Musculoskeletal Musculoskeletal: Reports other Details: See history of present illness ; Denies neck pain Integumentary Reports other Details: See history of present illness. Neurologic Neurologic: Denies paresthesias or weakness Endocrine Endocrinology: Reports polydipsia and polyuria Hematologic/Lymphatic Hematologic/Lymphatic: Denies lymphadenopathy Allergic/Immunologic Allergic/Immunologic ED: Denies urticaria EXAM Physical Exam Const Vital Signs: 05/29/22 16:45 05/29/22 18:07 Temperature 97.3 F L Temperature Source Temporal Pulse Rate 105 H 84 Respiratory Rate 16 15 Blood Pressure 109/85 H 100/74 Blood Pressure Mean 93 82 Pulse Ox 99 98 Oxygen Delivery Method Room Air Room Air Positive well nourished and well developed General Appearance ED: well developed HEENT HEENT Narrative: Mildly dry Neck full ROM Chest Wall inspection of chest normal and palpation of chest normal Resp normal respiratory effort and clear to auscultation bilaterally Auscultation: Negative for rales, rhonchi or wheezes Cardio regular rhythm Rate: tachycardic GI non-tender Back/Spine no CVA tenderness Extremity Extremity Narrative: Patient has removal of second toe on his left foot. There is a crusting scab over this. I do not see any drainage. I do not note any swelling in the foot. In fact it looks like there is dry skin and cracking from where swelling was present but has now gone down. There is some mild reddish coloration but it looks more like healing and does not look infected. It is not warm. It is not tender. There is no drainage from the wound. There is no lymphangitic streaking. Neuro oriented x3 Sensorium / Orientation: alert Psych mental status grossly normal MDM MDM MDM Narrative Medical decision making narrative: X-ray shows no sign of infection. Patient has no fever. He has no white count. CBC is overall normal. Electrolytes are normal other than a glucose of 460. However, when I look back at his normal glucoses they run 460 and much higher frequently. Lactic acid was negative. There were small acetone levels only but patient admits he has not eaten anything today just because he did not have anything. I gave him fluids and insulin. He came down to 215. He feels well. I do not think he needs to come in the hospital. I do not think he needs antibiotics. He will follow-up with internal medicine center and his surgeon at [facility]. I will see if I can get insulin for him here. If not I will write prescriptions to go. Lab Data Attestation: I reviewed the patient's lab results. Labs: Laboratory Results - last 24 hr 05/29/22 05/29/22 05/29/22 17:03 17:58 17:58 WBC 7.2 RBC 4.33 L Hgb 13.1 Hct 38.9 L MCV 89.8 MCH 30.3 MCHC 33.7 RDW Std Deviation 39.8 RDW Coeff of Haris 12.1 Plt Count 256 MPV 9.2 Immature Gran % (Auto) 0.400 Neut % (Auto) 49.0 Lymph % (Auto) 41.3 H [place] % (Auto) 7.3 Eos % (Auto) 1.4 Baso % (Auto) 0.6 Absolute Neuts (auto) 3.5 Absolute Lymphs (auto) 2.96 Nucleated RBC % 0 Sodium 131 L Potassium 4.0 Chloride 96 L Carbon Dioxide 30.0 Anion Gap 5 BUN 15 Creatinine 0.85 Estim Creat Clear Calc 110.25 Est GFR (MDRD) Af Amer 135 Est GFR (MDRD) Non-Af 112 BUN/Creatinine Ratio 17.7 Glucose 460 H* Lactic Acid Calcium 9.6 Acetone Level POC Glucose > 500 H* 05/29/22 05/29/22 05/29/22 17:58 17:58 19:10 WBC RBC Hgb Hct MCV MCH MCHC RDW Std Deviation RDW Coeff of Haris Plt Count MPV Immature Gran % (Auto) Neut % (Auto) Lymph % (Auto) [place] % (Auto) Eos % (Auto) Baso % (Auto) Absolute Neuts (auto) Absolute Lymphs (auto) Nucleated RBC % Sodium Potassium Chloride Carbon Dioxide Anion Gap BUN Creatinine Estim Creat Clear Calc Est GFR (MDRD) Af Amer Est GFR (MDRD) Non-Af BUN/Creatinine Ratio Glucose Lactic Acid 1.0 Calcium Acetone Level SMALL H POC Glucose 215 H Radiography Diagnostic Testing: Clinical Impression(s) from Imaging Studies Foot X-Ray 05/29/22 18:10 IMPRESSION: Status post amputation of the second toe with swelling at the operative site but no definitive evidence for recurrent osteomyelitis Electronically Signed: Federico Odonnell MD at 18:38 EST , Three-view x-ray of the patient's left foot shows no sign of gas or definitive osteomyelitis. There is still some swelling although clinically has reduced significantly from surgery per patient Discharge Plan Triage Chief Complaint: Wound Check ED Provider: Kenny Patton Dx/Rx/DC Orders Clinical Impression: Encounter for postoperative wound check, Type 1 diabetes mellitus, Acute hyperglycemia Instructions: Diabetes: Inspecting Your Feet Prescriptions: New insulin glargine [Lantus U-100 Insulin] 100 unit/mL solution 32 unit subcut QPM Qty: 10 0RF insulin lispro [Humalog U-100 Insulin] 100 unit/mL solution 12 unit subcut TID Qty: 10 0RF Primary Care Provider: Care Physician,No Primary Referrals: Queta Woodson MD [Med Staff - Active Staff] - As soon as possible Disposition Disposition: Home, Self Care
[2022-05-29] MEDS: Insulin Lispro 100 UNIT/ML INSULN.PEN 20 UNIT SC (18:00)
[2022-05-29] MEDS: 0.9% Normal Saline 1,000 ML 1000 ML IV (18:04)
[2022-05-29 18:07] VITALS: BP 100/74; PULSE 84; RESP 15; O2SAT 98
--- NOTE | 2022-05-29 18:10 | RAD_ITS ---
INDICATION: Postoperative amputation following EXAMINATION/TECHNIQUE: X-RAY - LEFT XR Foot Min 3 Views 3 VIEWS COMPARISON: None. FINDINGS: SOFT TISSUES: Diffuse soft tissue swelling of the distal second toe. No radiopaque foreign body. BONES/JOINTS: Postsurgical changes status post amputation of the second toe at the level of the metatarsal phalangeal joint. No definitive evidence for recurrent acute infection There is deformity of the hindfoot which has the appearance of old posttraumatic changes involving the talus however clinical correlation is recommended RAD/Foot min 3 Views IMPRESSION: Status post amputation of the second toe with swelling at the operative site but no definitive evidence for recurrent osteomyelitis Electronically Signed: Federico Odonnell MD at 18:38 EST ,
[2022-05-29 18:15] LABS: Absolute Lymphocyte Count 2.96 X10^3/uL (0.83-4.51); Absolute Neutrophil Count 3.5 X10^3/uL (2.0-7.7); Basophil# 0.04 X10^3/uL; Basophil% 0.6 % (0-1); Eosinophils% 1.4 % (0-5); Hematocrit 38.9 % (40-54); Hemoglobin 13.1 g/dL (13.0-16.5); Lymphocyte # 2.96 X10^3/ul (0.83-4.51); Lymphocyte % 41.3 % (19-41); Mean Corp Hgb Conc 33.7 g/dL (32-36); Mean Corpuscular Hgb 30.3 pg (27.0-32.0); Mean Corpuscular Volume 89.8 fL (80-94); Mean Platelet Vol. 9.2 fl (6.2-12.0); Monocyte# 0.52 X10^3/uL; Monocyte% 7.3 % (0-10); NRBC Flagged by Analyzer 0 % (0-5); Neutrophil # 3.51 X10^3/uL (2.7-7.7); Platelet Count 256 K/mm3 (150-450); RBC Distribution Width CV 12.1 % (11.6-14.6); RBC Distribution Width SD 39.8 fl (35.1-43.9); Red Blood Count 4.33 M/mm3 (4.6-6.2); White Blood Count 7.2 K/mm3 (4.4-11.0)
[2022-05-29 18:35] LABS: Anion Gap 5 (5-15); BUN 15 mg/dL (7-18); BUN/Creat Ratio 17.7 RATIO (10-20); Calcium,Total 9.6 mg/dL (8.5-10.1); Chloride 96 mmol/L (98-107); Creatinine, Serum 0.85 mg/dL (0.70-1.30); EST Glomerular Filtration Rate 112 mL/min (>60); Est Glom Filt Rate - Afr Amer 135 mL/min (>60); Estimated Creatinine Clearance 110.25 ml/min; Glucose 460 mg/dL (74-106); Sodium Level 131 mmol/L (136-145)
[2022-05-29] MEDS: 0.9% Normal Saline 1,000 ML 999 ML IV (19:12)
[2022-05-29 19:31] LABS: Bedside Glucose 215 mg/dL (74-106)
[2022-05-29 20:51] VITALS: BP 112/83; PULSE 89; RESP 15; O2SAT 97
--- NOTE | 2022-05-29 20:53 | ED.RN ---
attempting to assist patient with medication arrangements. pt left prior to receiving prescribed medications. cait dawn rn [id number]
== END 2022-05-29 20:55 | disposition home or self-care (01) ==
PROVIDERS: Emergency Provider Emergency Medicine; Visit Provider Emergency Medicine
DX: Z48.01 Encounter for change or removal of surgical wound dressing (principal); Z89.422 Acquired absence of other left toe(s); E10.65 Type 1 diabetes mellitus with hyperglycemia; Z79.4 Long term (current) use of insulin; I10 Essential (primary) hypertension; F17.210 Nicotine dependence, cigarettes, uncomplicated; Z79.899 Other long term (current) drug therapy
CPT/HCPCS: 73630; 80048; 82009; 82962; 83605; 85025; 87040; 96360; 96361; 99283; J7030

== ENCOUNTER 2022-07-03 15:44 | Emergency (ER) | payer MEDICAID, SELFPAY ==
[2022-07-03 15:46] VITALS: BP 118/81; PULSE 132; RESP 18; TEMP 36.2; O2SAT 97; BMI 22.1
--- NOTE | 2022-07-03 16:06 | EDS_ITS ---
HPI History of Present Illness Chief Complaint: Hyperglycemia Informant: patient Onset/Context/Timing Onset: Today Timing: Continuous Quality: Lightheaded Location: Generalized Worsened by: Nothing Relieved by: Nothing Narrative Narrative: Patient presents with elevated blood sugar that he noticed this morning. Patient states his blood sugars were fine yesterday. Patient states today when he woke up his blood sugar was over 500. Patient states he has been taking his normal doses of insulin but his blood sugars have remained elevated throughout the day. Patient states he feels lightheaded. Patient states nothing makes his sugar better or worse. Patient does admit to some polyuria and polydipsia. Patient denies any recent fevers or chills. Patient denies any nausea or vomiting. Patient denies any abdominal pain. Prior similar symptoms: Yes PFSH PFSH Medical History Anxiety and depression Bipolar 1 disorder Chronic leg pain Diabetes Frequent headaches Hypertension Home Medications insulin glargine 100 unit/mL (3 mL) subcutaneous pen (Basaglar KwikPen U-100 Insulin) 32 unit (0.32 mL) subcut QPM #15 mL 05/29/22 [Rx Last Taken Unknown] insulin lispro 100 unit/mL subcutaneous pen (Humalog KwikPen (U-100) Insulin) 12 unit (0.12 mL) subcut TID #15 mL 05/29/22 [Rx Last Taken Unknown] Allergy/AdvReac Type Severity Reaction Status Date / Time aspirin Allergy Anaphylaxis Verified 07/03/22 15:46 cyclobenzaprine Allergy Anaphylaxis Verified 07/03/22 15:46 [From Flexeril] morphine Allergy Anaphylaxis Verified 07/03/22 15:46 naproxen Allergy Anaphylaxis Verified 07/03/22 15:46 Penicillins [PCN] Allergy Anaphylaxis Verified 07/03/22 15:46 Family History Mother Diabetes Hypertension Surgical History left leg surgery Social History Smoking Status: Current every day smoker tobacco type: cigarettes Tobacco: How many years used: 4 alcohol intake: never substance use type: does not use what type of physical activity do you participate in: walking ROS ROS ED Constitutional Constitutional ED: Denies chills or fever(s) Eyes Eyes: Denies blurry vision or change in vision ENT ENT ED: Denies rhinorrhea or sore throat Cardiovascular Cardiovascular: Denies chest pain or palpitations Respiratory/Chest Respiratory/Chest: Denies cough or dyspnea Gastrointestinal Gastrointestinal: Denies nausea or vomiting Genitourinary Genitourinary ED: Reports urinary frequency; Denies dysuria or hematuria Musculoskeletal Musculoskeletal: Denies back pain or neck pain Integumentary Denies abscess or rash Neurologic Neurologic: Denies headache(s) or weakness Endocrine Endocrinology: Reports polydipsia and polyuria Allergic/Immunologic Allergic/Immunologic ED: Denies mouth swelling or urticaria EXAM Physical Exam Const Vital Signs: 07/03/22 15:46 Temperature 97.1 F L Temperature Source Temporal Pulse Rate 132 H Respiratory Rate 18 Blood Pressure 118/81 H Blood Pressure Mean 93 Pulse Ox 97 Oxygen Delivery Method Room Air Positive well nourished and well developed General Appearance ED: well developed HEENT Reports moist mucous membranes Neck supple and no JVD Resp normal respiratory effort and clear to auscultation bilaterally Cardio regular rate, regular rhythm and no murmurs GI normal to inspection, nondistended, normoactive bowel sounds and non-tender Palpation: soft Extremity normal to inspection General Extremety ED: Negative for edema or tenderness General Extremity: Negative for edema Neuro oriented x3, CN's II-XII intact bilaterally and no sensory deficits noted Sensorium / Orientation: alert Motor Exam: strength 5/5 throughout Psych mental status grossly normal Skin no rashes or lesions noted MDM MDM MDM Narrative Medical decision making narrative: IV line was established. BGT was 560. Patient was given IV fluids. Differential diagnosis includes diabetic ketoacidosis, hyperosmolar hyperglycemic nonketotic state, hyperglycemia, and electrolyte abnormality. CBC will be obtained to assess for leukocytosis which could signify an infection that caused his hyperglycemia. Basic metabolic profile will be obtained to assess glucose, electrolyte abnormality, and renal function. Serum ketone will be obtained to assess for diabetic ketoacidosis. Urinalysis will be obtained to assess for urinary ketones as well as urinary tract infection and hematuria. Lab Data Attestation: I reviewed the patient's lab results. Lab results narrative: CBC was reviewed and was essentially within normal limits. Basic metabolic profile was reviewed and showed an elevated glucose of 587. Sodium was 130. Chloride was 92. Anion gap was normal. CO2 was normal. Serum acetone level was reviewed and was small. Urinalysis was reviewed and showed urine ketones of 50. There is no evidence of urinary tract infection or hematuria. Labs: Laboratory Results - last 24 hr 07/03/22 07/03/22 07/03/22 15:55 16:00 16:00 WBC 7.0 RBC 4.65 Hgb 14.2 Hct 42.4 MCV 91.2 MCH 30.5 MCHC 33.5 RDW Std Deviation 44.8 H RDW Coeff of Haris 13.7 Plt Count 194 MPV 9.6 Immature Gran % (Auto) 0.300 Neut % (Auto) 62.7 Lymph % (Auto) 26.7 [place] % (Auto) 7.1 Eos % (Auto) 2.3 Baso % (Auto) 0.9 Absolute Neuts (auto) 4.4 Absolute Lymphs (auto) 1.88 Nucleated RBC % 0 Sodium 130 L Potassium 4.5 Chloride 92 L Carbon Dioxide 26.0 Anion Gap 12 BUN 12 Creatinine 0.86 Estim Creat Clear Calc 113.19 Est GFR (MDRD) Af Amer 134 Est GFR (MDRD) Non-Af 111 BUN/Creatinine Ratio 14.0 Glucose 587 H* Calcium 8.8 Urine Color Urine Clarity Urine pH Ur Specific [place] Urine Protein Urine Glucose (UA) Urine Ketones Urine Occult Blood Urine Nitrite Urine Bilirubin Urine Urobilinogen Ur Leukocyte Esterase Urine RBC Urine WBC Ur Squamous Epith Cells Urine Bacteria Urine Mucus Acetone Level POC Glucose > 500 H* 07/03/22 07/03/22 07/03/22 16:00 17:15 17:58 WBC RBC Hgb Hct MCV MCH MCHC RDW Std Deviation RDW Coeff of Haris Plt Count MPV Immature Gran % (Auto) Neut % (Auto) Lymph % (Auto) [place] % (Auto) Eos % (Auto) Baso % (Auto) Absolute Neuts (auto) Absolute Lymphs (auto) Nucleated RBC % Sodium Potassium Chloride Carbon Dioxide Anion Gap BUN Creatinine Estim Creat Clear Calc Est GFR (MDRD) Af Amer Est GFR (MDRD) Non-Af BUN/Creatinine Ratio Glucose Calcium Urine Color Yellow Urine Clarity Clear Urine pH 6.0 Ur Specific [place] 1.015 Urine Protein Negative Urine Glucose (UA) 1000 H Urine Ketones 50 Urine Occult Blood Negative Urine Nitrite Negative Urine Bilirubin Negative Urine Urobilinogen Normal Ur Leukocyte Esterase Negative Urine RBC 0 SEEN Urine WBC 0 SEEN Ur Squamous Epith Cells 0 SEEN Urine Bacteria 0 SEEN Urine Mucus 0 SEEN Acetone Level SMALL H POC Glucose 387 H Treatment and Re-Evaluation Narrative: Patient was given 2 L of IV fluids. Patient was given 18 units of Humalog. Repeat BGT was 387. Patient is feeling better on reevaluation. Patient wants to go home. Patient was instructed to drink plenty of fluids. Patient was instructed to continue to monitor his blood sugars. Patient was instructed to continue his insulin as previously prescribed. Patient was instructed to eat a low-carb, low sugar diet. Patient was instructed to follow-up with his primary care physician in 3 to 5 days. Patient was instructed to return if worse in any way. Patient understood and was agreeable with the plan. All questions were answered. Discharge Plan Triage Chief Complaint: Hyperglycemia ED Provider: Austyn Muniz Dx/Rx/DC Orders Clinical Impression: Hyperglycemia, Type 1 diabetes mellitus Instructions: ED Diabetic Hyperglycemia Prescriptions: No Action insulin glargine [Basaglar KwikPen U-100 Insulin] 100 unit/mL (3 mL) insulin pen 32 unit subcut QPM Qty: 15 0RF insulin lispro [Humalog KwikPen Insulin] 100 unit/mL insulin pen 12 unit subcut TID Qty: 15 0RF Primary Care Provider: Care Physician,No Primary Referrals: Vika Phoenix MD [Med Staff - Reconditioning Associate] - 5-7 Days Olman Brewster MD [Med Staff - Courtesy Staff] - 5-7 Days Care Physician,No Primary [Primary Care Provider] - Disposition Disposition: Home, Self Care
[2022-07-03 16:15] LABS: Bedside Glucose > 500 mg/dL (74-106)
[2022-07-03] MEDS: 0.9% Normal Saline 1,000 ML 1000 ML IV ×2 (16:20→17:12)
[2022-07-03 16:30] LABS: Absolute Lymphocyte Count 1.88 X10^3/uL (0.83-4.51); Absolute Neutrophil Count 4.4 X10^3/uL (2.0-7.7); Basophil# 0.06 X10^3/uL; Basophil% 0.9 % (0-1); Eosinophil# 0.16 X10^3/uL; Eosinophils% 2.3 % (0-5); Hematocrit 42.4 % (40-54); Hemoglobin 14.2 g/dL (13.0-16.5); Lymphocyte # 1.88 X10^3/ul (0.83-4.51); Lymphocyte % 26.7 % (19-41); Mean Corp Hgb Conc 33.5 g/dL (32-36); Mean Corpuscular Hgb 30.5 pg (27.0-32.0); Mean Corpuscular Volume 91.2 fL (80-94); Mean Platelet Vol. 9.6 fl (6.2-12.0); Monocyte% 7.1 % (0-10); NRBC Flagged by Analyzer 0 % (0-5); Neutrophil # 4.41 X10^3/uL (2.7-7.7); Neutrophil % 62.7 % (47-70); Platelet Count 194 K/mm3 (150-450); RBC Distribution Width CV 13.7 % (11.6-14.6); RBC Distribution Width SD 44.8 fl (35.1-43.9); Red Blood Count 4.65 M/mm3 (4.6-6.2)
[2022-07-03 16:58] LABS: Anion Gap 12 (5-15); BUN 12 mg/dL (7-18); Calcium,Total 8.8 mg/dL (8.5-10.1); Chloride 92 mmol/L (98-107); Creatinine, Serum 0.86 mg/dL (0.70-1.30); EST Glomerular Filtration Rate 111 mL/min (>60); Est Glom Filt Rate - Afr Amer 134 mL/min (>60); Estimated Creatinine Clearance 113.19 ml/min; Glucose 587 mg/dL (74-106); Potassium 4.5 mmol/L (3.5-5.1); Sodium Level 130 mmol/L (136-145)
[2022-07-03] MEDS: Insulin Lispro 100 UNIT/ML INSULN.PEN 18 UNIT SC (17:12)
[2022-07-03 17:21] LABS: Bacteria 0 SEEN /hpf (None Seen); Mucous, Urine 0 SEEN /hpf (<or=2+); Red Blood Cells-Urine 0 SEEN /hpf (0-5); Squamous Epithelial Cells - UA 0 SEEN /hpf (0-5); White Blood Cells 0 SEEN /hpf (0-5)
[2022-07-03 17:40] LABS: Color, Urine Yellow (Yellow)
[2022-07-03 17:41] LABS: Glucose, Dipstick 1000 mg/dl (Normal); Ketone-Dipstick 50 mg/dl (Negative); Leukocyte Esterase-Dipstick Negative /ul (Negative); Nitrite-Dipstick Negative (Negative); Occult Blood-Urine Negative /ul (Negative); Protein-Dipstick Negative (Negative); Specific Gravity, Urine 1.015 (1.002-1.030); Urine Bilirubin Dipstick Negative (Negative); Urine Clarity Clear (Clear); Urine Urobilinogen Normal (Normal)
--- NOTE | 2022-07-03 18:00 | CM.ED ---
Social Work Note Referral Source: Case Find Referral Reason: No PCP SW met with patient and introduced herself and role as [facility] Industrial Cook. Patient agreeable to speak with SW. SW inquired about patient's insurance as well as patient's current PCP. Patient verified his insurance and reported no current PCP. SW provided patient with list of [facility] and CC PCPs and highlighted PCP accepting new patients. Patient was receptive towards list, no other needs voiced at this time. SW remains available if needs arise. Malika Lund INSURANCE ACCOUNT SPECIALIST, [place]
[2022-07-03 18:20] LABS: Bedside Glucose 387 mg/dL (74-106)
[2022-07-03 19:07] VITALS: PULSE 94; RESP 10
== END 2022-07-03 19:10 | disposition home or self-care (01) ==
PROVIDERS: Emergency Provider Emergency Medicine; Visit Provider Emergency Medicine
DX: E10.65 Type 1 diabetes mellitus with hyperglycemia (principal); Z79.4 Long term (current) use of insulin; F17.210 Nicotine dependence, cigarettes, uncomplicated
CPT/HCPCS: 80048; 81001; 82009; 82962; 85025; 96360; 96361; 99284; J7030; A4216

== ENCOUNTER 2022-07-30 12:32 | Emergency (ER) | payer MEDICAID, SELFPAY ==
[2022-07-30] VITALS (14 sets, daily range): BP systolic 90–110; BP diastolic 50–89; PULSE 77–100; RESP 6–19; TEMP 35.8; O2SAT 99
--- NOTE | 2022-07-30 12:44 | EKG12_ITS ---
Test Reason : CP Blood Pressure : / mmHG Vent. Rate : 087 BPM Atrial Rate : 087 BPM P-R Int : 160 ms QRS Dur : 078 ms QT Int : 360 ms P-R-T Axes : 043 041 032 degrees QTc Int : 433 ms Normal sinus rhythm Normal ECG Confirmed by ERNESTO GREENBERG, YASIR ([id number]), newspaper or periodical editor AVRIL BARRAZA ([id number]) on 08/01/2022 1:02:25 PM Referred By: Confirmed By:YASIR OROZCO MD
--- NOTE | 2022-07-30 12:47 | RAD_ITS ---
STUDY: X-RAY CHEST REASON FOR EXAM: Male, 32 years old. chest pain TECHNIQUE: Single AP portable view of the chest. COMPARISON: 11/22/2019 FINDINGS: EKG leads overlie the chest The lungs are clear and expanded. There is no demonstrated pleural abnormality. Normal size heart. Normal mediastinum and zak. Normal visualized pulmonary arteries. Normal visualized aortic arch and descending thoracic aorta. Normal visualized thoracic spine. Normal visualized ribs, clavicles, and shoulders. There is no demonstrated abnormality of the visualized soft tissue structures of the upper abdomen. RAD/Chest 1 View (Portable) IMPRESSION: Normal x-ray examination of the chest. Electronically Signed: Major Sin MD at 13:13 EST ,
--- NOTE | 2022-07-30 12:49 | EDS_ITS ---
HPI History of Present Illness Chief Complaint: Chest Pain Informant: patient Onset/Context/Timing Onset: Today Activity at onset: sudden Quality: Positive for Sharp Location: Right Chest Current Severity: Moderate Maximum Severity: Moderate Narrative Narrative: Patient presents secondary to chest pain. He states he was walking to work when he got rather abrupt onset of sharp right-sided chest pain. He feels short of breath. He states he felt well this morning. He was given aspirin and nitroglycerin with EMS with no significant improvement. He denies personal history of heart disease. He denies history of DVT or PE. [facility] Medical History Anxiety and depression Bipolar 1 disorder Chronic leg pain Diabetes Frequent headaches Hypertension Home Medications insulin glargine 100 unit/mL (3 mL) subcutaneous pen (Basaglar KwikPen U-100 Insulin) 32 unit (0.32 mL) subcut QPM #15 mL 05/29/22 [Rx Last Taken Unknown] insulin lispro 100 unit/mL subcutaneous pen (Humalog KwikPen (U-100) Insulin) 12 unit (0.12 mL) subcut TID #15 mL 05/29/22 [Rx Last Taken Unknown] aripiprazole 5 mg tablet 5 mg PO DAILY 07/30/22 [History Last Taken Unknown] fluoxetine 20 mg capsule 20 mg PO DAILY 07/30/22 [History Last Taken Unknown] levothyroxine 137 mcg tablet 137 mcg PO DAILY 07/30/22 [History Last Taken Unkno wn] metoclopramide HCl 10 mg tablet (Reglan) 10 mg PO Q6H PRN nausea and vomiting #20 tabs 07/30/22 [Rx Last Taken Unknown] Allergy/AdvReac Type Severity Reaction Status Date / Time cyclobenzaprine Allergy Anaphylaxis Verified 07/30/22 12:33 [From Flexeril] morphine Allergy Anaphylaxis Verified 07/30/22 12:33 naproxen Allergy Anaphylaxis Verified 07/30/22 12:33 Penicillins [PCN] Allergy Anaphylaxis Verified 07/30/22 12:33 Family History Mother Diabetes Hypertension Surgical History left leg surgery Social History Smoking Status: Current every day smoker tobacco type: cigarettes Tobacco: How many years used: 4 alcohol intake: never substance use type: does not use what type of physical activity do you participate in: walking ROS ROS ED Constitutional Constitutional ED: Denies chills or fever(s) Eyes Eyes: Denies change in vision or discharge from eye(s) ENT ENT ED: Denies discharge from eye(s), rhinorrhea or sore throat Cardiovascular Cardiovascular: Reports chest pain; Denies palpitations Respiratory/Chest Respiratory/Chest: Reports dyspnea; Denies cough Gastrointestinal Gastrointestinal: Denies abdominal pain, nausea or vomiting Genitourinary Genitourinary ED: Denies dysuria Musculoskeletal Musculoskeletal: Denies back pain or extremity pain Integumentary Denies Abrasions or rash Neurologic Neurologic: Denies headache(s) or weakness Allergic/Immunologic Allergic/Immunologic ED: Denies lip swelling or urticaria EXAM Physical Exam Const Vital Signs: 07/30/22 12:35 07/30/22 12:38 07/30/22 12:44 Temperature 96.4 F L Temperature Source Temporal Pulse Rate 100 Respiratory Rate 14 Respiratory Effort Normal Non-Labored Blood Pressure 110/73 Blood Pressure Mean 85 Pulse Ox 99 Oxygen Delivery Method Room Air Room Air 07/30/22 12:49 07/30/22 12:50 07/30/22 13:00 Temperature Temperature Source Pulse Rate 94 91 89 Respiratory Rate 10 L 6 L 19 H Respiratory Effort Blood Pressure Blood Pressure Mean Pulse Ox Oxygen Delivery Method 07/30/22 13:01 07/30/22 13:15 07/30/22 13:30 Temperature Temperature Source Pulse Rate 83 Respiratory Rate 13 Respiratory Effort Blood Pressure 104/89 H 109/84 H 104/76 Blood Pressure Mean 95 93 85 Pulse Ox Oxygen Delivery Method 07/30/22 13:38 07/30/22 13:40 07/30/22 14:06 Temperature Temperature Source Pulse Rate 90 88 Respiratory Rate 17 15 Respiratory Effort Blood Pressure 90/50 L Blood Pressure Mean 62 Pulse Ox Oxygen Delivery Method 07/30/22 14:15 07/30/22 15:22 07/30/22 15:30 Temperature Temperature Source Pulse Rate 79 77 Respiratory Rate Respiratory Effort Blood Pressure 98/70 Blood Pressure Mean 79 Pulse Ox Oxygen Delivery Method Positive well nourished and well developed General Appearance ED: well developed HEENT Reports normocephalic and head/scalp atraumatic Eyes PERRL and EOMs intact bilaterally Neck supple Chest Wall inspection of chest normal and palpation of chest normal Resp normal respiratory effort and clear to auscultation bilaterally Cardio regular rate and regular rhythm GI soft to palpation Palpation: soft Extremity normal to inspection Neuro oriented x3 and no sensory deficits noted Sensorium / Orientation: alert Motor Exam: strength 5/5 throughout Psych mental status grossly normal Skin no rashes or lesions noted Heart Score History: Slightly/Non-Suspicious ECG: Normal Age: </= 45 years Risk Factors: 1 or 2 Risk Factors Troponin: </= Normal Limit Score: 1 MDM MDM MDM Narrative Medical decision making narrative: Patient placed on bus monitor. EKG obtained to evaluate for cardiac arrhythmia/ischemia. Lab work obtained to evaluate for leukocytosis, anemia, electrolyte derangement. D-dimer obtained to evaluate for possibility of blood clot. Troponin obtained x2 to evaluate for cardiac ischemia given his risk factors of diabetes and hypertension. Patient was given Tylenol for pain. Lab Data Attestation: I reviewed the patient's lab results. Labs: Laboratory Results - last 24 hr 07/30/22 07/30/22 07/30/22 12:20 12:20 12:20 WBC 6.5 RBC 4.36 L Hgb 13.8 Hct 39.7 L MCV 91.1 MCH 31.7 MCHC 34.8 RDW Std Deviation 46.4 H RDW Coeff of Haris 13.7 Plt Count 195 MPV 9.5 Immature Gran % (Auto) 0.600 Neut % (Auto) 57.5 Lymph % (Auto) 30.1 [place] % (Auto) 8.3 Eos % (Auto) 2.6 Baso % (Auto) 0.9 Absolute Neuts (auto) 3.7 Absolute Lymphs (auto) 1.95 Nucleated RBC % 0 D-Dimer Quant (PE/DVT) 0.56 H* Sodium 128 L Potassium 4.4 Chloride 90 L Carbon Dioxide 26.0 Anion Gap 12 BUN 13 Creatinine 0.88 Est GFR (MDRD) Af Amer 129 Est GFR (MDRD) Non-Af 107 BUN/Creatinine Ratio 14.7 Glucose 638 H* Calcium 9.3 Troponin I High Sens 16 POC Glucose 07/30/22 07/30/22 07/30/22 13:47 14:39 15:08 WBC RBC Hgb Hct MCV MCH MCHC RDW Std Deviation RDW Coeff of Haris Plt Count MPV Immature Gran % (Auto) Neut % (Auto) Lymph % (Auto) [place] % (Auto) Eos % (Auto) Baso % (Auto) Absolute Neuts (auto) Absolute Lymphs (auto) Nucleated RBC % D-Dimer Quant (PE/DVT) Sodium Potassium Chloride Carbon Dioxide Anion Gap BUN Creatinine Est GFR (MDRD) Af Amer Est GFR (MDRD) Non-Af BUN/Creatinine Ratio Glucose Calcium Troponin I High Sens 15 POC Glucose > 500 H* 443 H Radiography Chest X-Ray - ED: 1 View, Read by ED Physician, Normal, Heart, Lungs and Mediastinum Diagnostic Testing: Clinical Impression(s) from Imaging Studies Chest X-Ray 07/30/22 12:47 IMPRESSION: Normal x-ray examination of the chest. Electronically Signed: Major Sin MD at 13:13 EST , Abdomen/Pelvis CT 07/30/22 13:58 IMPRESSION: There is gastric distention with large amount of residual food particles. Gastric outlet obstruction should be ruled out. Markedly distended urinary bladder. Electronically Signed: Antonio Smith MD at 14:52 EST , Chest CTA 07/30/22 14:00 IMPRESSION: Normal CTA chest examination, without a demonstrated pulmonary embolism or arterial dissection. Electronically Signed: Antonio Smith MD at 14:53 EST , EKG Initial EKG: Attestation: I personally reviewed and interpreted this EKG as follows: Interpretation: Sinus Rhythm (Sinus 87 with no acute ischemia.) Treatment and Re-Evaluation Narrative: CBC reveals normal white count. Hemoglobin is normal at 13.8. Chemistry studies reveal elevated glucose at 638 with a pseudohyponatremia with sodium of 128. Chloride is 90. Initial troponin is normal at 16. D-dimer is 0.56. Patient is sent for CTA of the chest which reveals no evidence of PE or dissection. CT techs did note significantly enlarged stomach so CT of the abdomen and pelvis was also added Jennifer gastric distention with a large amount of residual food particles. Gastric outlet obstruction should be ruled out. 2-hour delta troponin is obtained and is normal at 15. Patient was given subcu insulin. He was ordered IV fluids but he refused this. On repeat evaluation patient is sleeping comfortably and easily awakens. He denies complaint at this time. He tells me that his blood sugars have been under good control, but with further prodding he states numbers have been in the 300s. I did recommend he take his monitor to his next doctor's appointment to ensure it is reading accurately. He does report sensation of feeling very full and not having bowel movements very frequently. That being said, he does report he had a bowel movement last evening. Clinically the patient does not have any evidence of gastric outlet syndrome. I believe he likely has gastroparesis given his diabetes. I will write him for Reglan. Return instructions provided. Discharge Plan Triage Chief Complaint: Chest Pain ED Provider: Evelina Knox Dx/Rx/DC Orders Clinical Impression: Chest pain, Diabetic gastroparesis, Hyperglycemia Instructions: ED Chest Pain, Noncardiac, ED Diabetic Hyperglycemia, ED Diabetic Gastroparesis Prescriptions: New metoclopramide HCl [Reglan] 10 mg tablet 10 mg PO Q6H PRN (Reason: nausea and vomiting) Qty: 20 0RF No Action insulin glargine [Basaglar KwikPen U-100 Insulin] 100 unit/mL (3 mL) insulin pen 32 unit subcut QPM Qty: 15 0RF insulin lispro [Humalog KwikPen Insulin] 100 unit/mL insulin pen 12 unit subcut TID Qty: 15 0RF levothyroxine 137 mcg tablet 137 mcg PO DAILY Label Comments: Take 1 tablet by mouth once daily. fluoxetine 20 mg capsule 20 mg PO DAILY Label Comments: Take 1 capsule by mouth once daily. aripiprazole 5 mg tablet 5 mg PO DAILY Label Comments: TAKE 1 TABLET BY MOUTH ONCE DAILY Primary Care Provider: Care Physician,No Primary Referrals: Care Physician,No Primary [Primary Care Provider] - Activity Restrictions/Additional Instructions: Follow-up with your primary care physician at [facility]. As discussed, please take your glucose meter with you to your next appointment to ensure it is reading accurately. Disposition Disposition: Home, Self Care
[2022-07-30 12:59] LABS: Absolute Lymphocyte Count 1.95 X10^3/uL (0.83-4.51); Absolute Neutrophil Count 3.7 X10^3/uL (2.0-7.7); Basophil# 0.06 X10^3/uL; Basophil% 0.9 % (0-1); Eosinophil# 0.17 X10^3/uL; Eosinophils% 2.6 % (0-5); Hematocrit 39.7 % (40-54); Hemoglobin 13.8 g/dL (13.0-16.5); Lymphocyte # 1.95 X10^3/ul (0.83-4.51); Lymphocyte % 30.1 % (19-41); Mean Corp Hgb Conc 34.8 g/dL (32-36); Mean Corpuscular Hgb 31.7 pg (27.0-32.0); Mean Corpuscular Volume 91.1 fL (80-94); Mean Platelet Vol. 9.5 fl (6.2-12.0); Monocyte# 0.54 X10^3/uL; Monocyte% 8.3 % (0-10); NRBC Flagged by Analyzer 0 % (0-5); Neutrophil # 3.72 X10^3/uL (2.7-7.7); Neutrophil % 57.5 % (47-70); Platelet Count 195 K/mm3 (150-450); RBC Distribution Width CV 13.7 % (11.6-14.6); RBC Distribution Width SD 46.4 fl (35.1-43.9); Red Blood Count 4.36 M/mm3 (4.6-6.2); White Blood Count 6.5 K/mm3 (4.4-11.0)
[2022-07-30 13:16] LABS: D-Dimer Quantitative (DVT/PE) 0.56 FEU/ug/m (0.27-0.49)
[2022-07-30 13:29] LABS: Anion Gap 12 (5-15); BUN 13 mg/dL (7-18); BUN/Creat Ratio 14.7 RATIO (10-20); Calcium,Total 9.3 mg/dL (8.5-10.1); Chloride 90 mmol/L (98-107); Creatinine, Serum 0.88 mg/dL (0.70-1.30); EST Glomerular Filtration Rate 107 mL/min (>60); Est Glom Filt Rate - Afr Amer 129 mL/min (>60); Glucose 638 mg/dL (74-106); Potassium 4.4 mmol/L (3.5-5.1); Sodium Level 128 mmol/L (136-145); Troponin-I HS (w/2H Reflex) 16 pg/mL (3.0-78.0)
[2022-07-30] MEDS: Insulin Lispro 100 UNIT/ML INSULN.PEN 15 UNIT SC (13:44)
[2022-07-30] MEDS: 0.9% Normal Saline 1,000 ML 999 ML IV (13:44)
--- NOTE | 2022-07-30 13:58 | CT_ITS ---
STUDY: CT ABDOMEN AND PELVIS WITH CONTRAST REASON FOR EXAM: Male, 32 years old. Abdominal pain. RADIATION DOSAGE (If Supplied By Facility): CTDIvol = ( 8.43 ) mGy, DLP = ( 570.67 ) mGycm TECHNIQUE: Transaxial images were obtained from the dome of the diaphragm to the symphysis pubis without oral contrast. IV 100mL Isovue-370 was administered. Sagittal and coronal images were reconstructed. Individualized dose optimization techniques were used for this CT. COMPARISON: Comparison is made with prior study dated 08/24/2019. FINDINGS: Minimal degree of bibasilar atelectasis. The visualized portions of the heart are within normal limits. Normal liver. Normal gallbladder and extrahepatic biliary system. Normal spleen. Normal pancreas. Normal bilateral adrenal glands. Normal right kidney. Normal left kidney. The stomach is distended with a large amount of food particles. Normal small intestine. Normal colon. There are surgical clips in the region of the appendix consistent with a prior appendectomy. Normal abdominal aorta. Normal inferior vena cava. Normal retroperitoneum. Markedly distended urinary bladder. Normal abdominal wall. Normal osseous structures. CT/Abdomen/Pelvis W IV Cont ONLY IMPRESSION: There is gastric distention with large amount of residual food particles. Gastric outlet obstruction should be ruled out. Markedly distended urinary bladder. Electronically Signed: Antonio Smith MD at 14:52 EST ,
--- NOTE | 2022-07-30 14:00 | CT_ITS ---
STUDY: CTA CHEST REASON FOR EXAM: Male, 32 years old. CP, elevated d-dimer RADIATION DOSAGE (If Supplied By Facility): CTDIvol = ( 8.43 ) mGy, DLP = ( 570.67 ) mGycm TECHNIQUE: The examination was performed with the intravenous administration of IV 100mL Isovue-370. Post-processing of the angiographic images was performed, with multiplanar reformation and 3D reconstruction. Individualized dose optimization techniques were used for this CT. COMPARISON: None. FINDINGS: Normal enhancement of the main pulmonary artery and right and left pulmonary arteries. Normal enhancement of the bilateral peripheral pulmonary arteries. There is no demonstrated pulmonary embolism. Normal thoracic aorta and visualized great vessels. There is no demonstrated aortic dissection. Normal heart and pericardium. Normal mediastinum. Normal hilar regions. Normal visualized trachea and bronchi. The lungs are well expanded. Normal pulmonary parenchyma. Normal pleura. Normal chest wall structures. Normal osseous structures. Normal visualized upper abdomen. CT/CTA Chest W/WO Contrast IMPRESSION: Normal CTA chest examination, without a demonstrated pulmonary embolism or arterial dissection. Electronically Signed: Antonio Smith MD at 14:53 EST ,
[2022-07-30 14:11] LABS: Bedside Glucose > 500 mg/dL (74-106)
[2022-07-30 14:51] LABS: Reflex Troponin-HS? (from REC) Y
[2022-07-30 15:01] LABS: Bedside Glucose 443 mg/dL (74-106)
[2022-07-30 15:33] LABS: Troponin-I HS 15 pg/mL (3.0-78.0)
== END 2022-07-30 16:04 | disposition home or self-care (01) ==
PROVIDERS: Emergency Provider Emergency Medicine; Visit Provider Emergency Medicine
DX: R07.9 Chest pain, unspecified (principal); E11.65 Type 2 diabetes mellitus with hyperglycemia; E11.43 Type 2 diabetes mellitus with diabetic autonomic (poly)neuropathy; Z79.4 Long term (current) use of insulin; K31.84 Gastroparesis; I10 Essential (primary) hypertension; F17.210 Nicotine dependence, cigarettes, uncomplicated; Z79.899 Other long term (current) drug therapy
CPT/HCPCS: 71045; 71275; 74177; 80048; 82962; 84484; 85025; 85379; 93005; 96360; 99285; J7030; Q9967

== ENCOUNTER 2022-08-01 15:16 | Emergency (ER) | payer MEDICAID, SELFPAY ==
[2022-08-01] VITALS (7 sets, daily range): BP systolic 117–127; BP diastolic 80–99; PULSE 71–93; RESP 16–18; TEMP 36.2; O2SAT 98–100; BMI 24.3
--- NOTE | 2022-08-01 15:57 | EX.ED.VIS.PS ---
HPI HPI - Psych History of Present Illness Chief Complaint: Suicidal Informant: patient Onset/Context/Timing Onset: Days (2) Context: Gradual Onset Timing: Continuous Worsened by: Situational factors Relieved by: Nothing Associated Symptoms Associated Symptoms - Psych: Positive for Depressed, Change in sleeping and Suicidal Thoughts; Negative for Visual Hallucinations or Auditory Hallucinations Specific plan (suicidal thought): Walking into traffic Narrative Narrative: Patient presents with suicidal ideation that has been getting worse over the past couple of days. Patient states it is gradually getting worse. Patient states he misses his parents who were killed in a motor vehicle collision when he was 14 years old. Patient states that this is came on gradually over the last couple days. Patient states he has been having some decrease in sleeping. Patient states he has been feeling hopeless. Patient states he has thought of walking into traffic. Patient denies any visual or auditory hallucinations. [facility]SH [facility] Medical History Anxiety and depression Bipolar 1 disorder Chronic leg pain Diabetes Frequent headaches Hypertension Home Medications insulin glargine 100 unit/mL (3 mL) subcutaneous pen (Basaglar KwikPen U-100 Insulin) 32 unit (0.32 mL) subcut QPM #15 mL 05/29/22 [Rx Last Taken 07/31/22] aripiprazole 5 mg tablet 5 mg PO DAILY 07/30/22 [History Last Taken 08/01/22] fluoxetine 20 mg capsule 20 mg PO DAILY 07/30/22 [History Last Taken 08/01/22] levothyroxine 137 mcg tablet 137 mcg PO DAILY 07/30/22 [History Last Taken 08/01/22] metoclopramide HCl 10 mg tablet (Reglan) 10 mg PO Q6H PRN nausea and vomiting #20 tabs 07/30/22 [Rx Last Taken 08/01/22] insulin lispro 100 unit/mL subcutaneous pen (Humalog KwikPen (U-100) Insulin) 22 unit subcut TID 08/01/22 [History Last Taken 08/01/22] Allergy/AdvReac Type Severity Reaction Status Date / Time cyclobenzaprine Allergy Anaphylaxis Verified 07/30/22 12:33 [From Flexeril] morphine Allergy Anaphylaxis Verified 07/30/22 12:33 naproxen Allergy Anaphylaxis Verified 07/30/22 12:33 Penicillins [PCN] Allergy Anaphylaxis Verified 07/30/22 12:33 Family History Mother Diabetes Hypertension Surgical History left leg surgery Social History Smoking Status: Current every day smoker tobacco type: cigarettes Tobacco: How many years used: 4 alcohol intake: never substance use type: does not use what type of physical activity do you participate in: walking ROS ROS ED Constitutional Constitutional ED: Denies chills or fever(s) Eyes Eyes: Denies blurry vision or change in vision ENT ENT ED: Denies rhinorrhea or sore throat Cardiovascular Cardiovascular: Denies chest pain or palpitations Respiratory/Chest Respiratory/Chest: Denies cough or dyspnea Gastrointestinal Gastrointestinal: Denies nausea or vomiting Genitourinary Genitourinary ED: Denies dysuria or hematuria Musculoskeletal Musculoskeletal: Denies back pain or neck pain Integumentary Reports rash; Denies abscess Neurologic Neurologic: Denies headache(s) or weakness Psychiatric Psychiatric: Reports depression, suicidal ideation and suicidal thoughts Allergic/Immunologic Allergic/Immunologic ED: Denies mouth swelling or urticaria EXAM Physical Exam Const Vital Signs: 08/01/22 15:18 08/01/22 16:27 08/01/22 17:06 Temperature 97.1 F L Temperature Source Temporal Pulse Rate 93 Respiratory Rate 18 16 16 Blood Pressure 127/99 H Blood Pressure Mean 108 Pulse Ox 100 Oxygen Delivery Method Room Air 08/01/22 18:10 08/01/22 18:56 08/01/22 19:41 Temperature Temperature Source Pulse Rate 71 Respiratory Rate 16 18 16 Blood Pressure 117/80 Blood Pressure Mean 92 Pulse Ox 98 Oxygen Delivery Method Room Air 08/01/22 21:23 Temperature Temperature Source Pulse Rate Respiratory Rate 18 Blood Pressure Blood Pressure Mean Pulse Ox 99 Oxygen Delivery Method Room Air Positive well nourished and well developed General Appearance ED: well developed HEENT normocephalic and atraumatic Neck supple and no JVD Resp normal respiratory effort and clear to auscultation bilaterally Cardio no murmurs Rate: regular rate Rhythm: regular rhythm GI non-tender and non-distended Auscultation: normoactive bowel sounds Palpation: soft Extremity normal to inspection General Extremety ED: Negative for edema or tenderness General Extremity: Negative for edema Neuro oriented x3, CN's II-XII intact bilaterally and no sensory deficits noted Sensorium / Orientation: alert Motor Exam: strength 5/5 throughout Psych mental status grossly normal Activity / Motor Behavior: appropriate eye contact Speech: minimal and soft Mood & Affect: depressed and flat affect Thought Content: suicidality Skin Rashes: no rashes MDM MDM MDM Narrative Medical decision making narrative: Differential diagnosis includes depression with suicidal ideation, electrolyte abnormality, hyperthyroidism, and hypoglycemia. CBC will be obtained to assess for leukocytosis and anemia. Basic metabolic profile will be obtained to assess for glucose, renal function, and electrolyte abnormality. TSH will be obtained to assess for hyperthyroidism. Urine tox screen will be obtained to assess for substance abuse. Serum alcohol level pending to assess for alcohol intoxication. COVID-19 will be obtained to assess for COVID infection. Lab Data Attestation: I reviewed the patient's lab results. Lab results narrative: CBC was reviewed and was within normal limits. Basic metabolic profile was reviewed and showed an elevated glucose of 684. Anion gap was normal. CO2 was normal. TSH was reviewed and was elevated at 133. Urine tox screen was reviewed and was positive for cannabinoids. Serum alcohol level was reviewed and was negative. Labs: Laboratory Results - last 24 hr 08/01/22 08/01/22 08/01/22 15:36 15:40 15:40 WBC 7.8 RBC 4.10 L Hgb 13.3 Hct 37.9 L MCV 92.4 MCH 32.4 H MCHC 35.1 RDW Std Deviation 45.7 H RDW Coeff of Haris 13.5 Plt Count 188 MPV 9.6 Immature Gran % (Auto) 0.500 Neut % (Auto) 63.9 Lymph % (Auto) 25.0 Berks % (Auto) 7.6 Eos % (Auto) 2.1 Baso % (Auto) 0.9 Absolute Neuts (auto) 5.0 Absolute Lymphs (auto) 1.95 Nucleated RBC % 0 Sodium 127 L Potassium 3.7 Chloride 89 L Carbon Dioxide 27.0 Anion Gap 11 BUN 11 Creatinine 0.87 Estim Creat Clear Calc 115.02 Est GFR (MDRD) Af Amer 132 Est GFR (MDRD) Non-Af 109 BUN/Creatinine Ratio 12.7 Glucose 684 H* Calcium 9.1 TSH 133.00 H Urine Opiates Screen NEGATIVE Urine Methadone Screen NEGATIVE Ur Barbiturates Screen NEGATIVE Ur Phencyclidine Scrn NEGATIVE Ur Amphetamines Screen NEGATIVE MDMA (Ecstasy) Screen NEGATIVE U Benzodiazepines Scrn NEGATIVE Urine Cocaine Screen NEGATIVE U Cannabinoids Screen POSITIVE H Ur Drug Screen Comment Ethyl Alcohol POC Glucose 08/01/22 08/01/22 08/01/22 15:40 19:37 21:19 WBC RBC Hgb Hct MCV MCH MCHC RDW Std Deviation RDW Coeff of Haris Plt Count MPV Immature Gran % (Auto) Neut % (Auto) Lymph % (Auto) Berks % (Auto) Eos % (Auto) Baso % (Auto) Absolute Neuts (auto) Absolute Lymphs (auto) Nucleated RBC % Sodium Potassium Chloride Carbon Dioxide Anion Gap BUN Creatinine Estim Creat Clear Calc Est GFR (MDRD) Af Amer Est GFR (MDRD) Non-Af BUN/Creatinine Ratio Glucose Calcium TSH Urine Opiates Screen Urine Methadone Screen Ur Barbiturates Screen Ur Phencyclidine Scrn Ur Amphetamines Screen MDMA (Ecstasy) Screen U Benzodiazepines Scrn Urine Cocaine Screen U Cannabinoids Screen Ur Drug Screen Comment Ethyl Alcohol < 3.0 POC Glucose > 500 H* 479 H* Treatment and Re-Evaluation Narrative: Patient does not have diabetic ketoacidosis. He just has hyperglycemia. Patient was given a dose of Humalog here. Patient's blood sugar was improving to 479. However, family members brought him [employer] fried chicken to eat. Patient was given a another dose of Humalog since he ate the [employer]: [place] fried chicken. Patient is medically cleared. [facility]. Patient will be transferred there. Patient understands and is agreeable with the plan. All questions were answered. Discharge Plan Triage Chief Complaint: Suicidal ED Provider: Austyn Muniz Dx/Rx/DC Orders Prescriptions: No Action insulin glargine [Basaglar KwikPen U-100 Insulin] 100 unit/mL (3 mL) insulin pen 32 unit subcut QPM Qty: 15 0RF levothyroxine 137 mcg tablet 137 mcg PO DAILY Label Comments: Take 1 tablet by mouth once daily. fluoxetine 20 mg capsule 20 mg PO DAILY Label Comments: Take 1 capsule by mouth once daily. aripiprazole 5 mg tablet 5 mg PO DAILY Label Comments: TAKE 1 TABLET BY MOUTH ONCE DAILY metoclopramide HCl [Reglan] 10 mg tablet 10 mg PO Q6H PRN (Reason: nausea and vomiting) Qty: 20 0RF insulin lispro [Humalog KwikPen Insulin] 100 unit/mL insulin pen 22 unit subcut TID Primary Care Provider: Care Physician,No Primary Referrals: Care Physician,No Primary [Primary Care Provider] - Disposition Disposition: Psychiatric Hospital or Unit Discharge Location: [facility]
[2022-08-01 16:10] LABS: Absolute Lymphocyte Count 1.95 X10^3/uL (0.83-4.51); Basophil# 0.07 X10^3/uL; Basophil% 0.9 % (0-1); Eosinophil# 0.16 X10^3/uL; Eosinophils% 2.1 % (0-5); Hematocrit 37.9 % (40-54); Hemoglobin 13.3 g/dL (13.0-16.5); Lymphocyte # 1.95 X10^3/ul (0.83-4.51); Mean Corp Hgb Conc 35.1 g/dL (32-36); Mean Corpuscular Hgb 32.4 pg (27.0-32.0); Mean Corpuscular Volume 92.4 fL (80-94); Mean Platelet Vol. 9.6 fl (6.2-12.0); Monocyte# 0.59 X10^3/uL; Monocyte% 7.6 % (0-10); NRBC Flagged by Analyzer 0 % (0-5); Neutrophil # 4.99 X10^3/uL (2.7-7.7); Neutrophil % 63.9 % (47-70); Platelet Count 188 K/mm3 (150-450); RBC Distribution Width CV 13.5 % (11.6-14.6); RBC Distribution Width SD 45.7 fl (35.1-43.9); White Blood Count 7.8 K/mm3 (4.4-11.0)
--- NOTE | 2022-08-01 16:49 | CM.ED ---
Social Work Psychiatric Assessment Reason for Consult: SI Informants: Patient, Barry Chief Complaint: Patient states ?I?m feeling suicidal?. Martial Status: Patient is single. Identified gender/ sexual orientation: male, heterosexual Living situation: Patient reports he has been living at [facility] for about a month and a half. Prior to living at [facility], patient reports he was ?living on the streets?. Patient explained his parents when he was 14 years old and was in foster care, then staying with friends through out the years. ?? Supports/ Resources: Patient explained he is supported by his siblings and nieces. ?? History: None Education and Employment history: Patient states he graduated from high school in [place] and is currently employed at [employer]. Mental Health Treatment/ History: Patient states he has never been engaged in counseling services. Patient reports his PCP at [facility] prescribes him ProZac and Abilify. Patient states he is diagnosed with Bipolar, depression and anxiety. Patient also reports family history of bipolar from his father and sister. Patient reports his appetite has been normal, however, patient has been struggling with sleep due to having reoccurring dreams about his parents. ?? Triggers/ stressors: Patient explained he has been stressed at work, his living situation has been a stressor and thinking about his parents is a trigger. Coping Skills: Patient reports he enjoys going for walks, listening to music and playing the [employer]. ?? Abuse History: ? Patient denies emotional, physical and sexual abuse. ?? Substance Abuse Hx: Patient reports he has his medical marijuana card and uses marijuana daily. ?? Risk to Self/Others: ? Suicidal: Patient reports he has been struggling with suicidal thoughts on and off for years. Patient reports his current plan is to run into traffic. Patient explained he contacted police to bring him to the hospital. SW assisted patient in completing the [place] Suicide Screening; patient is at high risk for suicide due to thoughts, plan and over 7 attempts in the past. Patient reports his most recent suicide attempts were attempting to hang himself and drinking bleach. Patient states he was at [facility] in 2019 and explained he has been to multiple other psychiatric facilities in the past due to attempts. Patient states on a scale from 1-10, with 10 being full intent to commit suicide, patient is currently a 4. ? Homicidal: denied ? Violence: denied Mental Status Exam: ? Orientation x4 ? Memory: fair ? Appearance:? Patient is laying in hospital bed, wearing a hospital gown and engaging in minimal eye contact. Patient appears to be very tired as his eyes shut several times during the assessment. ? Mood/ affect: depressed mood, flat affect ? Communication Pattern: responds to questions ? Thought Process: Patient denies A/VH. ? General Intellectual Functioning: average Judgement: poor Insight: poor? DARA consulted with MD Muniz regarding concerns for patient. and DARA in agreement with inpatient psych placement. Patient was pink slipped by local PD to [facility] as patient is a substantial risk of physical harm to self.? DARA updated RN of plan for inpatient psych. ? Assessment: Patient was brought into the ED by police due to patient contacting them concerned for his personal safety as he has been struggling with suicidal thoughts. Patient was pink slipped to [facility] by PD. Patient was agreeable to speak to SW and engaged in the assessment. Patient completed [place] Suicidal Screening and is high risk for suicide. Patient reports currently have suicidal thoughts and a plan to run into traffic. Patient reports he has been to several psychiatric hospitals before due to suicide attempts. Patient reports he is diagnosed with Bipolar, depression and anxiety and is prescribed Abilify and Prozac by his PCP with [facility]. Patient would benefit from crisis stabilization and medication management. Plan: Psychiatric Hospitalization Malika Lund MSW, [facility]
[2022-08-01 16:50] LABS: Amphetamine Urine VISTA NEGATIVE (<1000 ng/mL); Barbiturate Urine VISTA NEGATIVE (< 200 ng/mL); Benzodiazepine Urine VISTA NEGATIVE (< 200 ng/mL); Cocaine Urine VISTA NEGATIVE (< 300 ng/mL); Ecstacy Urine VISTA NEGATIVE (< 500 ng/mL); Methadone Urine VISTA NEGATIVE (< 300 ng/mL); PCP Urine VISTA NEGATIVE (< 25 ng/mL); THC Urine VISTA POSITIVE (< 50 ng/mL); Vista UDS pH Range 5
[2022-08-01 16:55] LABS: Alcohol, Blood (Medical)-Serum < 3.0 mg/dL
--- NOTE | 2022-08-01 17:05 | CM.ED ---
Addendum entered by Malika Lund 08/01/22 17:56: DARA contacted by [facility] with patient's acceptance: Dr. Mohamud, [address], [address] [phone]. [facility] requests updated pink slip addressed to their facility to be faxed. DARA updated MD Muniz regarding acceptance. completed pink slip. DARA faxed pink slip to [facility]. DARA updated RN and [employer], transportation ETA is 4 hrs. SW updated patient regarding his acceptance to [facility] and transportation ETA is 4 hrs. Patient voices understanding and no questions. Plan: [facility] [place] Original Note: DARA Note DARA contacted [facility] to inquire about bed availability, admission staff reports available beds. DARA faxed referral to [facility] Plan: inpatient psych pending acceptance from facility [facility] [place]
--- NOTE | 2022-08-01 17:49 | NURSING ---
CALLED TO SET UP TRANSPORT TO [facility] WITH PHYSICIANS -- ETA 4 HRS 2200P
--- NOTE | 2022-08-01 18:08 | ED.RN ---
CALLED LAB ABOUT PENDING CHEMISTRY SINCE 1540, RESULTING NOW.
[2022-08-01 18:09] LABS: Anion Gap 11 (5-15); BUN 11 mg/dL (7-18); BUN/Creat Ratio 12.7 RATIO (10-20); Calcium,Total 9.1 mg/dL (8.5-10.1); Chloride 89 mmol/L (98-107); Creatinine, Serum 0.87 mg/dL (0.70-1.30); EST Glomerular Filtration Rate 109 mL/min (>60); Est Glom Filt Rate - Afr Amer 132 mL/min (>60); Estimated Creatinine Clearance 115.02 ml/min; Glucose 684 mg/dL (74-106); Potassium 3.7 mmol/L (3.5-5.1); Sodium Level 127 mmol/L (136-145)
[2022-08-01] MEDS: Insulin Lispro 100 UNIT/ML INSULN.PEN 15 UNIT SC (18:34)
[2022-08-01 20:01] LABS: Bedside Glucose > 500 mg/dL (74-106)
[2022-08-01] MEDS: Insulin Lispro 100 UNIT/ML INSULN.PEN 10 UNIT SC (21:25)
[2022-08-01 21:41] LABS: Bedside Glucose 479 mg/dL (74-106)
[2022-08-02 01:31] LABS: Bedside Glucose 416 mg/dL (74-106)
[2022-08-02 02:05] VITALS: BP 118/78; PULSE 68; RESP 18; O2SAT 100
== END 2022-08-02 02:11 ==
PROVIDERS: Emergency Provider Emergency Medicine; Visit Provider Emergency Medicine
DX: E11.65 Type 2 diabetes mellitus with hyperglycemia (principal); Z79.4 Long term (current) use of insulin; R45.851 Suicidal ideations; F17.210 Nicotine dependence, cigarettes, uncomplicated; Z79.899 Other long term (current) drug therapy
CPT/HCPCS: 80048; 80307; 82077; 82962; 84443; 85025; 87811; 99284

== ENCOUNTER 2022-08-14 10:37 | Emergency (ER) | payer MEDICAID, SELFPAY ==
[2022-08-14 10:38] VITALS: BP 108/82; PULSE 99; RESP 18; TEMP 36.1; O2SAT 100; BMI 22.6
[2022-08-14 11:24] VITALS: O2SAT 97
--- NOTE | 2022-08-14 11:27 | RAD_ITS ---
EXAM: XR CHEST, 2 VIEWS CLINICAL INDICATION: weakness TECHNIQUE: Frontal and lateral views of the chest. This report was created using [employer] report generation technology. COMPARISON: 07/30/2022. FINDINGS: LUNGS AND PLEURAL SPACES: Unremarkable. No consolidation or edema. No pneumothorax. No effusion. HEART: Unremarkable. Cardiac silhouette not enlarged. MEDIASTINUM: Central airways and mediastinal contour are unremarkable. BONES/JOINTS: Unremarkable. SOFT TISSUES: Unremarkable. RAD/Chest PA and Lateral IMPRESSION: No acute cardiopulmonary abnormality. Electronically Signed: Phoenix Campos MD at 12:17 EST ,
[2022-08-14 11:52] LABS: Bacteria 0 SEEN /hpf (None Seen); Mucous, Urine 0 SEEN /hpf (<or=2+); Red Blood Cells-Urine 0 SEEN /hpf (0-5); Squamous Epithelial Cells - UA 0 SEEN /hpf (0-5); White Blood Cells 0 SEEN /hpf (0-5)
[2022-08-14 12:02] LABS: Absolute Lymphocyte Count 2.04 X10^3/uL (0.83-4.51); Absolute Neutrophil Count 5.7 X10^3/uL (2.0-7.7); Basophil# 0.09 X10^3/uL; Color, Urine Yellow (Yellow); Eosinophil# 0.17 X10^3/uL; Glucose, Dipstick 1000 mg/dl (Normal); Hemoglobin 12.8 g/dL (13.0-16.5); Leukocyte Esterase-Dipstick Negative /ul (Negative); Lymphocyte # 2.04 X10^3/ul (0.83-4.51); Lymphocyte % 23.5 % (19-41); Mean Corp Hgb Conc 34.6 g/dL (32-36); Mean Corpuscular Hgb 31.7 pg (27.0-32.0); Mean Corpuscular Volume 91.6 fL (80-94); Mean Platelet Vol. 8.8 fl (6.2-12.0); Monocyte# 0.62 X10^3/uL; Monocyte% 7.1 % (0-10); NRBC Flagged by Analyzer 0 % (0-5); Neutrophil # 5.73 X10^3/uL (2.7-7.7); Neutrophil % 65.9 % (47-70); Nitrite-Dipstick Negative (Negative); Occult Blood-Urine Negative /ul (Negative); Platelet Count 196 K/mm3 (150-450); Protein-Dipstick 15 mg/dl (Negative); RBC Distribution Width CV 13.2 % (11.6-14.6); RBC Distribution Width SD 44.5 fl (35.1-43.9); Red Blood Count 4.04 M/mm3 (4.6-6.2); Specific Gravity, Urine 1.015 (1.002-1.030); Urine Bilirubin Dipstick Negative (Negative); Urine Clarity Sl. Cloudy (Clear); Urine Urobilinogen Normal (Normal); White Blood Count 8.7 K/mm3 (4.4-11.0)
--- NOTE | 2022-08-14 12:02 | CT_ITS ---
EXAM: CT HEAD WITHOUT INTRAVENOUS CONTRAST CLINICAL INDICATION: head injury, fall TECHNIQUE: Multiple axial images were obtained of the head without intravenous contrast. This CT exam was performed using one or more of the following dose reduction techniques: automated exposure control, adjustment of the mA and/or kV according to patient size, and/or use of iterative reconstruction technique. This report was created using [employer] report generation technology. RADIATION DOSE: CTDIvol = 44.99 mGy, DLP = 796.11 mGy-cm. COMPARISON: None. FINDINGS: BRAIN AND EXTRA-AXIAL SPACES: Unremarkable. No intra- or extra-axial hemorrhage. No evidence of acute infarct. No intracranial mass or mass effect. There is preservation of the rhodes/white matter interface. Posterior fossa structures are unremarkable. Ventricles are appropriate for age. No hydrocephalus. Basal cisterns are patent. BONES/JOINTS: Unremarkable. No discrete lytic or blastic abnormalities. SINUSES: Unremarkable as visualized. Clear. MASTOID AIR CELLS: Unremarkable. Clear. ORBITS: Visualized globes, extraocular muscles, optic nerves and retrobulbar fat appear unremarkable. CT/Brain/Head without Contrast IMPRESSION: Negative head/brain CT without intravenous contrast. Electronically Signed: Phoenix Campos MD at 12:17 EST ,
[2022-08-14 12:04] LABS: Ketone-Dipstick 150 mg/dl (Negative)
[2022-08-14 12:06] LABS: Blood Gas Specimen Type VEN; VBG BASE EXCESS 1 mmol/L (-1.0-3.5); VBG Bicarbonate 26 mmol/L (22-26); VBG PO2 72 mmHg (25-40); VBG SO2 94 % (50-70); VBG TCO2 27 mmol/L (23-33); VBG pCO2 41.2 mmHg (41-51)
[2022-08-14] MEDS: 0.9% Normal Saline 1,000 ML 1000 ML IV (12:14)
[2022-08-14] MEDS: Ondansetron 4 MG/2 ML Vial IV (12:14)
[2022-08-14 12:19] LABS: Albumin, Serum 3.3 g/dL (3.2-5.0); BUN 12 mg/dL (7-18); BUN/Creat Ratio 19.5 RATIO (10-20); Creatinine, Serum 0.61 mg/dL (0.70-1.30); EST Glomerular Filtration Rate 162 mL/min (>60); Est Glom Filt Rate - Afr Amer 196 mL/min (>60); Estimated Creatinine Clearance 162.31 ml/min; Glucose 389 mg/dL (74-106); Protein, Total 7.3 g/dL (6.4-8.2)
[2022-08-14 12:20] LABS: ALB/GLOB Ratio 0.8 RATIO (0.9-2.4); AST(SGOT) 16 U/L (15-37); Alanine Aminotransfer ALT/SGPT 56 U/L (16-61); Alkaline Phosphatase 81 U/L (45-117); Anion Gap 12 (5-15); Calcium,Total 8.9 mg/dL (8.5-10.1); Chloride 96 mmol/L (98-107); Sodium Level 133 mmol/L (136-145); Troponin-I HS 13 pg/mL (3.0-78.0)
[2022-08-14 12:22] LABS: Lactic Acid 0.8 mmol/L (0.4-1.9)
[2022-08-14 13:36] VITALS: BP 106/84; BP 127/100; BP 127/99; PULSE 78; PULSE 96
[2022-08-14 13:43] VITALS: BP 106/84; PULSE 82; RESP 10
[2022-08-14] MEDS: 0.9% Normal Saline 1,000 ML 999 ML IV (14:04)
--- NOTE | 2022-08-14 14:06 | EX.ED.DYSGE1 ---
HPI History of Present Illness Chief Complaint: Fall Informant: patient Narrative Narrative: Patient is a 32-year-old male with history of type 1 diabetes mellitus, bipolar disorder, hypertension and diabetic neuropathy presenting after a dizzy episode. Patient states he was walking became dizzy fell and hit his head. He thinks he lost consciousness. He notes the past few days he has had a cough is been productive of green sputum as well as a sore throat. He also had significant nasal congestion. He describes the dizziness as a room spinning sensation as well as a lightheadedness sensation. He is currently feeling better while in the emergency room. Patient notes that he is a diabetic and currently homeless living at the [facility]. He states that he did not get to take his insulin this morning but his blood sugar has been pretty well controlled lately. He denies any abdominal pain, nausea, vomiting or change in bowel habits. Is not sure of any sick contacts but again is living at a [facility]. Is complaining of central chest pain that is been present since he has been ill as well. [facility] Medical History Anxiety and depression Bipolar 1 disorder Chronic leg pain Diabetes Frequent headaches Hypertension Home Medications insulin glargine 100 unit/mL (3 mL) subcutaneous pen (Basaglar KwikPen U-100 Insulin) 32 unit (0.32 mL) subcut QPM #15 mL 05/29/22 [Rx Last Taken 07/31/22] aripiprazole 5 mg tablet 5 mg PO DAILY 07/30/22 [History Last Taken 08/01/22] fluoxetine 20 mg capsule 20 mg PO DAILY 07/30/22 [History Last Taken 08/01/22] levothyroxine 137 mcg tablet 137 mcg PO DAILY 07/30/22 [History Last Taken 08/01/22] metoclopramide HCl 10 mg tablet (Reglan) 10 mg PO Q6H PRN nausea and vomiting #20 tabs 07/30/22 [Rx Last Taken 08/01/22] insulin lispro 100 unit/mL subcutaneous pen (Humalog KwikPen (U-100) Insulin) 22 unit subcut TID 08/01/22 [History Last Taken 08/01/22] hydroxyzine pamoate 50 mg capsule (Vistaril) 50 mg PO TID PRN Anxiety 08/14/22 [History Last Taken Unknown] trazodone 50 mg tablet 50 mg PO QHS PRN Sleep 08/14/22 [History Last Taken Unknown] Allergy/AdvReac Type Severity Reaction Status Date / Time cyclobenzaprine Allergy Anaphylaxis Verified 08/14/22 10:38 [From Flexeril] morphine Allergy Anaphylaxis Verified 08/14/22 10:38 naproxen Allergy Anaphylaxis Verified 08/14/22 10:38 Penicillins [PCN] Allergy Anaphylaxis Verified 08/14/22 10:38 Family History Mother Diabetes Hypertension Surgical History left leg surgery Social History Smoking Status: Current every day smoker tobacco type: cigarettes Tobacco: How many years used: 4 alcohol intake: never substance use type: does not use what type of physical activity do you participate in: walking ROS ROS ED Constitutional Constitutional ED: Denies chills or fever(s) Eyes Eyes: Reports blurry vision ENT ENT ED: Reports sore throat and other Details: congestion Cardiovascular Cardiovascular: Reports chest pain Respiratory/Chest Respiratory/Chest: Reports cough and dyspnea Gastrointestinal Gastrointestinal: Denies diarrhea or vomiting Musculoskeletal Musculoskeletal: Denies arthralgias or myalgias Integumentary Denies rash Neurologic Neurologic: Reports weakness; Denies headache(s) EXAM Physical Exam Const Vital Signs: 08/14/22 10:38 08/14/22 11:24 08/14/22 13:36 Temperature 97 F L Temperature Source Temporal Pulse Rate 99 Pulse Rate [Lying] 78 Pulse Rate [Standing (for 1 minute prior to obtaining)] 96 Respiratory Rate 18 Respiratory Effort Normal Non-Labored Respiratory Depth Normal Respiratory Pattern Normal Blood Pressure 108/82 H Blood Pressure [Lying] 127/100 H Blood Pressure [Sitting (for 1 minute prior to obtaining)] 127/99 H Blood Pressure [Standing (for 1 minute prior to obtaining)] 106/84 H Blood Pressure Mean 90 Blood Pressure Mean [Lying] 109 Blood Pressure Mean [Sitting (for 1 minute prior to obtaining)] 108 Blood Pressure Mean [Standing (for 1 minute prior to obtaining)] 91 Pulse Ox 100 97 Oxygen Delivery Method Room Air Room Air 08/14/22 13:43 08/14/22 14:46 Temperature Temperature Source Pulse Rate 82 85 Pulse Rate [Lying] Pulse Rate [Standing (for 1 minute prior to obtaining)] Respiratory Rate 10 L 13 Respiratory Effort Respiratory Depth Respiratory Pattern Blood Pressure 106/84 H 141/113 H Blood Pressure [Lying] Blood Pressure [Sitting (for 1 minute prior to obtaining)] Blood Pressure [Standing (for 1 minute prior to obtaining)] Blood Pressure Mean 91 Blood Pressure Mean [Lying] Blood Pressure Mean [Sitting (for 1 minute prior to obtaining)] Blood Pressure Mean [Standing (for 1 minute prior to obtaining)] Pulse Ox Oxygen Delivery Method Positive well nourished and well developed General Appearance ED: well developed and NAD HEENT Reports dry mucous membranes HEENT Narrative: nasal congestion present. Effusions behind panic membranes noted bilaterally. No erythema or bulging of the TMs appreciated. Mouth ED: Yes dry mucous membranes Mouth: dry mucous membranes Eyes PERRL and EOMs intact bilaterally Neck supple Neck Narrative: No meningeal signs Chest Wall inspection of chest normal and palpation of chest normal Resp normal respiratory effort Resp Narrative: Diminished breath sounds at the right base Auscultation: Negative for rhonchi or wheezes Cardio regular rate, regular rhythm and no murmurs GI normal to inspection, nondistended, normoactive bowel sounds and non-tender Neuro oriented x3 Neuro Narrative: No focal deficits appreciated. Normal coordination with normal finger-nose and [id number] Sensorium / Orientation: alert Motor Exam: Negative for general weakness Psych mental status grossly normal Skin no rashes or lesions noted and no wounds MDM MDM MDM Narrative Medical decision making narrative: Patient is evaluated after what sounds like a near syncopal versus syncopal episode and that he said he hit his head. No obvious signs of trauma on exam. Patient clinically has an upper respiratory infection. Differential includes dehydration, DKA, pneumonia or other electrolyte abnormality. Lower suspicion for ACS or cardiac arrhythmia as the cause of his episode given the prodrome of his recent symptoms. EKG is obtained and patient does not have any significant arrhythmia on telemetry. EKG does not show any acute ischemic changes and is normal sinus rhythm. This is interpreted by myself. There is no change compared to prior EKG on 07/30/2022. Patient's CBC is remarkable only for very mild anemia with a hemoglobin 12.8. Patient had a hemoglobin of 13.32 weeks ago. VBG obtained which shows a normal pH, no hypoxia and a normal bicarb. Patient actually has a mildly elevated PO2. BMP shows mild hyponatremia is actually improved from prior lab work. He does not have a transaminitis, high since he troponin is 13 and he has a normal anion gap. I do not suspect DKA or other type of decompensated hyperglycemia. Glucose is mildly elevated at 389 however this is actually better than what he normally is in our emergency room. Patient is given a liter of fluid and still has mildly positive orthostatic vital signs. Is given a second liter of fluid. He is blood sugar is rechecked and is now 296. Is given 6 units of insulin as he did not take his Lantus this morning. Patient is eating in the ER. CT of the brain obtained which does not show any acute intracranial process. Chest x-ray interpreted by myself as well as radiology does not show any acute cardiopulmonary abnormality. No findings consistent with pneumonia. Does not have a fever or leukocytosis and I do not think antibiotics indicated. He is not wheezing and I do not think he requires any steroids at this time, in addition this would worsen his hyperglycemia. Lab Data Labs: Laboratory Results - last 24 hr 08/14/22 08/14/22 08/14/22 11:50 11:50 11:50 WBC 8.7 RBC 4.04 L Hgb 12.8 L Hct 37.0 L MCV 91.6 MCH 31.7 MCHC 34.6 RDW Std Deviation 44.5 H RDW Coeff of [place] 13.2 Plt Count 196 MPV 8.8 Immature Gran % (Auto) 0.500 Neut % (Auto) 65.9 Lymph % (Auto) 23.5 [place] % (Auto) 7.1 Eos % (Auto) 2.0 Baso % (Auto) 1.0 Absolute Neuts (auto) 5.7 Absolute Lymphs (auto) 2.04 Nucleated RBC % 0 Sodium 133 L Potassium 4.0 Chloride 96 L Carbon Dioxide 25.0 Anion Gap 12 BUN 12 Creatinine 0.61 L Estim Creat Clear Calc 162.31 Est GFR (MDRD) Af Amer 196 Est GFR (MDRD) Non-Af 162 BUN/Creatinine Ratio 19.5 Glucose 389 H Lactic Acid Calcium 8.9 Total Bilirubin 0.60 AST 16 ALT 56 Alkaline Phosphatase 81 Troponin I High Sens 13 Total Protein 7.3 Albumin 3.3 Globulin 4.0 Albumin/Globulin Ratio 0.8 L Urine Color Urine Clarity Urine pH Ur Specific [place] Urine Protein Urine Glucose (UA) Urine Ketones Urine Occult Blood Urine Nitrite Urine Bilirubin Urine Urobilinogen Ur Leukocyte Esterase Urine RBC Urine WBC Ur Squamous Epith Cells Urine Bacteria Urine Mucus Acetone Level SMALL H POC Glucose 08/14/22 08/14/22 08/14/22 11:50 11:50 14:50 WBC RBC Hgb Hct MCV MCH MCHC RDW Std Deviation RDW Coeff of [place] Plt Count MPV Immature Gran % (Auto) Neut % (Auto) Lymph % (Auto) [place] % (Auto) Eos % (Auto) Baso % (Auto) Absolute Neuts (auto) Absolute Lymphs (auto) Nucleated RBC % Sodium Potassium Chloride Carbon Dioxide Anion Gap BUN Creatinine Estim Creat Clear Calc Est GFR (MDRD) Af Amer Est GFR (MDRD) Non-Af BUN/Creatinine Ratio Glucose Lactic Acid 0.8 Calcium Total Bilirubin AST ALT Alkaline Phosphatase Troponin I High Sens Total Protein Albumin Globulin Albumin/Globulin Ratio Urine Color Yellow Urine Clarity Sl. Cloudy Urine pH 6.0 Ur Specific [place] 1.015 Urine Protein 15 H Urine Glucose (UA) 1000 H Urine Ketones 150 A* Urine Occult Blood Negative Urine Nitrite Negative Urine Bilirubin Negative Urine Urobilinogen Normal Ur Leukocyte Esterase Negative Urine RBC 0 SEEN Urine WBC 0 SEEN Ur Squamous Epith Cells 0 SEEN Urine Bacteria 0 SEEN Urine Mucus 0 SEEN Acetone Level POC Glucose 296 H ABG Data ABG results: ABG 08/14/22 12:00 Specimen Type [place] VBG pH 7.40 VBG pO2 72 H VBG HCO3 26 VBG Total CO2 27 VBG O2 Sat (Calc) 94 H VBG Base Excess 1 POC Mix VBG pCO2 Pt Tmp 41.2 Radiography Diagnostic Testing: Clinical Impression(s) from Imaging Studies Chest X-Ray 08/14/22 11:27 IMPRESSION: No acute cardiopulmonary abnormality. Electronically Signed: Phoenix Campos MD at 12:17 EST , Brain CT 08/14/22 12:02 IMPRESSION: Negative head/brain CT without intravenous contrast. Electronically Signed: Phoenix Campos MD at 12:17 EST , Discharge Plan Triage Chief Complaint: Fall ED Provider: Esperanza Chang Dx/Rx/DC Orders Clinical Impression: Hyperglycemia, Type 1 diabetes mellitus, Syncope and collapse Instructions: ED Diabetic Hyperglycemia, ED Fall with Uncertain Cause Prescriptions: No Action insulin glargine [Basaglar KwikPen U-100 Insulin] 100 unit/mL (3 mL) insulin pen 32 unit subcut QPM Qty: 15 0RF levothyroxine 137 mcg tablet 137 mcg PO DAILY Label Comments: Take 1 tablet by mouth once daily. fluoxetine 20 mg capsule 20 mg PO DAILY Label Comments: Take 1 capsule by mouth once daily. aripiprazole 5 mg tablet 5 mg PO DAILY Label Comments: TAKE 1 TABLET BY MOUTH ONCE DAILY metoclopramide HCl [Reglan] 10 mg tablet 10 mg PO Q6H PRN (Reason: nausea and vomiting) Qty: 20 0RF insulin lispro [Humalog KwikPen Insulin] 100 unit/mL insulin pen 22 unit subcut TID trazodone 50 mg tablet 50 mg PO QHS PRN (Reason: Sleep) Label Comments: 50 mg Oral at Bedtime as needed hydroxyzine pamoate [Vistaril] 50 mg capsule 50 mg PO TID PRN (Reason: Anxiety) Label Comments: 50 mg Oral Three Times A Day as needed Primary Care Provider: Care Physician,No Primary Referrals: Danielle Magaña [Non-Staff] - Care Physician,No Primary [Primary Care Provider] - Activity Restrictions/Additional Instructions: Drink lots of fluids. I suspect you have a viral syndrome which is causing your symptoms. Make sure you are taking your insulin. Disposition Disposition: Home, Self Care Discharge Date/Time: 08/14/22 15:46
[2022-08-14 14:46] VITALS: BP 141/113; PULSE 85; RESP 13
[2022-08-14 15:10] LABS: Bedside Glucose 296 mg/dL (74-106)
[2022-08-14] MEDS: Insulin Lispro 100 UNIT/ML INSULN.PEN 6 UNIT SC (15:25)
== END 2022-08-14 15:46 | disposition home or self-care (01) ==
PROVIDERS: Emergency Provider Emergency Medicine; Visit Provider Emergency Medicine
DX: E10.65 Type 1 diabetes mellitus with hyperglycemia (principal); F31.9 Bipolar disorder, unspecified; E10.40 Type 1 diabetes mellitus with diabetic neuropathy, unspecified; Z79.4 Long term (current) use of insulin; E87.1 Hypo-osmolality and hyponatremia; R55 Syncope and collapse; I10 Essential (primary) hypertension; F41.9 Anxiety disorder, unspecified; F17.210 Nicotine dependence, cigarettes, uncomplicated; Z79.899 Other long term (current) drug therapy
CPT/HCPCS: 70450; 71046; 80053; 81001; 82009; 82803; 82962; 83605; 84484; 85025; 87428; 93005; 96361; 96374; 99285; J7030; A4216; J2405